=== PATIENT | male | born 1960 | race Caucasian/White ===

== ENCOUNTER 2018-12-01 03:19 | Inpatient (IN) | payer SELFPAY ==
[2018-12-01] MEDS ORDERED: HYDROMORPHONE HCL INJ/PF 2 MG/ML AMPULE IV ONE ×2 (03:48→04:48)
[2018-12-01] MEDS ORDERED: ONDANSETRON HCL INJ/PF 4 MG/2 ML SDV IV ONE (03:49)
[2018-12-01] MEDS ORDERED: NORMAL SALINE 1000 ML 1,000 ML IV ONE ×2 (03:49→04:49)
--- NOTE | 2018-12-01 03:50 | ER Document Report ---
ED GI/ - General Chief Complaint: Abdominal Pain Stated Complaint: ABDOMINAL PAIN Time Seen by Provider: 12/01/18 03:44 Notes: Patient is a 58-year-old male that comes to the emergency department for chief complaint of abdominal pain. Patient states that he started having pain at around 2300 tonight, pain is sharp, he has vomited repeatedly (easily more than 10 times reportedly). He denies hematemesis, he has had some loose stools, nonbloody. He denies fever/chills. He has a history of Crohn's disease, he has had multiple bowel surgeries including partial bowel resection, he also has had an appendectomy and cholecystectomy. He is currently being medicated for Crohn's disease but he cannot recall the name. He denies currently being on steroids. He follows with gastroenterology in [place], he is here visiting his family. He denies medical history otherwise. TRAVEL OUTSIDE OF THE [place] IN LAST 30 DAYS: No - Related Data Allergies/Adverse Reactions: Penicillins Allergy (Severe, Verified 12/01/18 04:28) Seizures Past Medical History - General Information source: Patient - Social History Smoking Status: Never Smoker Drug Abuse: None Lives with: Family Family History: Reviewed & Not Pertinent GI Medical History: Reports: Hx Crohn's Disease Past Surgical History: Reports: Hx Appendectomy, Hx Bowel Surgery, Hx Cholecystectomy - Immunizations Immunizations up to date: Yes Hx Diphtheria, Pertussis, Tetanus Vaccination: Yes Review of Systems - Review of Systems Constitutional: No symptoms reported EENT: No symptoms reported Cardiovascular: No symptoms reported Respiratory: No symptoms reported Gastrointestinal: See HPI Genitourinary: No symptoms reported Male Genitourinary: No symptoms reported Musculoskeletal: No symptoms reported Skin: No symptoms reported Hematologic/Lymphatic: No symptoms reported Neurological/Psychological: No symptoms reported Physical Exam - Vital signs Vitals: Temp Pulse Resp BP Pulse Ox 98.8 F 94 20 139/76 H 94 12/01/18 03:32 12/01/18 03:32 12/01/18 03:32 12/01/18 03:32 12/01/18 03:32 - Notes Notes: GENERAL: Patient curled up on the bed, appears to be in pain, somewhat ill- appearing HEAD: Normocephalic, atraumatic. EYES: Pupils equal, round, and reactive to light. Extraocular movements intact. ENT: Oral mucosa very dry, tongue midline. Oropharynx unremarkable. Airway patent. LUNGS: Clear to auscultation bilaterally, no wheezes, rales, or rhonchi. No respiratory distress. HEART: Regular rate and rhythm. No murmur ABDOMEN: Very tender abdomen in both upper and lower quadrants equally. However abdomen is not rigid, bowel sounds are present. Large amount of scar is around the umbilicus and lower abdomen in addition to a large cholecystectomy scar. GENITOURINARY: Deferred EXTREMITIES: Moves all 4 extremities spontaneously. No edema, normal radial and dorsalis pedis pulses bilaterally. No cyanosis. BACK: no cervical, thoracic, lumbar midline tenderness. No saddle anesthesia, normal distal neurovascular exam. Moves all extremities in full range of motion. NEUROLOGICAL: Alert and oriented x3. Normal speech. Cranial nerves II through XII grossly intact. SKIN: Slightly pale in appearance. Course - Re-evaluation Re-evalutation: On initial evaluation patient is somewhat ill-appearing and appears to be in pain. His abdomen is diffusely tender but not rigid. Vital signs are still unremarkable. No fever. CBC shows leukocytosis at 19.8, hemoglobin of 18 (suspect from dehydration), jovani vation of neutrophils but no bandemia. Lactic acid is not elevated. Chemistry nonspecific. Urinalysis unremarkable. CAT scan performed because of patient's large surgical history, history of Crohn's disease, leukocytosis. This was performed to rule out perforation, abscess, or other acute process. CT showing colitis. Clinical picture is most consistent with Crohn's flare. Given Solu-Medrol. Because patient remains very uncomfortable on reevaluation, he has colitis on imaging, he has leukocytosis, and he does not have local follow-up I did discuss with patient, he is uncomfortable going home and states he feels that he will continue to worsen and vomit. Discussed with Dr. Kramer, added Cipro and Flagyl coverage for colitis. Will discuss with hospitalist. 12/01/18 07:[address] Britt, patient accepted to medical floor full admission. - Vital Signs Vital signs: Temp Pulse Resp BP Pulse Ox 98 F 90 20 137/87 H 96 12/01/18 06:20 12/01/18 06:20 12/01/18 06:20 12/01/18 06:20 12/01/18 06:20 - Laboratory Result Diagrams: 12/01/18 04:00 12/01/18 04:00 Laboratory results interpreted by me: 12/01/18 12/01/18 04:00 04:00 WBC 19.8 H RBC 6.32 H Hgb 18.0 H Hct 53.1 H RDW 14.2 H Lymph % (Auto) 7.7 L Absolute Neuts (auto) 16.6 H Seg Neutrophils % 83.9 H BUN 29 H Glucose 145 H Discharge - Discharge Clinical Impression: Dehydration Vomiting Qualifiers: Vomiting type: unspecified Vomiting Intractability: unspecified Nausea presence : with nausea Qualified Code(s): R11.2 - Nausea with vomiting, unspecified Leukocytosis Qualifiers: Leukocytosis type: unspecified Qualified Code(s): D72.829 - Elevated white blood cell count, unspecified Crohn's colitis Qualifiers: Digestive disease complication type: without complication Qualified Code(s): K50.10 - Crohn's disease of large intestine without complications Condition: Stable Disposition: ADMITTED INPATIENT Admitting Provider: Lorenza (Hospitalist) Unit Admitted: Medical Floor
[2018-12-01 04:22] LABS: ABSOLUTE BASOPHILS # (AUTO) 0.1 10^3/uL (0.0-0.2); ABSOLUTE EOSINOPHILS # (AUTO) 0.3 10^3/uL (0.0-0.6); ABSOLUTE LYMPHOCYTES (AUTO) 1.5 10^3/uL (0.5-4.7); ABSOLUTE MONOCYTES (AUTO) 1.3 10^3/uL (0.1-1.4); ABSOLUTE NEUT (AUTO) 16.6 10^3/uL (1.7-8.2); BASOPHILS % (AUTO) 0.6 % (0-2); EOSINOPHILS % (AUTO) 1.4 % (0-6); HEMATOCRIT 53.1 % (37.9-51.0); LYMPHOCYTES % (AUTO) 7.7 % (13-45); MEAN CORPUSCULAR HEMOGLOBIN 28.5 pg (27.0-33.4); MEAN CORPUSCULAR VOLUME 84 fl (80-97); MONOCYTES % (AUTO) 6.4 % (3-13); PLATELET COUNT 234 10^3/uL (150-450); RED BLOOD COUNT 6.32 10^6/uL (4.35-5.55); RED CELL DISTRIBUTION WIDTH 14.2 % (11.5-14.0); SEGMENTED NEUTROPHILS % (AUTO) 83.9 % (42-78); TOTAL CELLS COUNTED % (AUTO) 100 %; WHITE BLOOD COUNT 19.8 10^3/uL (4.0-10.5)
[2018-12-01 04:38] LABS: ALKALINE PHOSPHATASE 89 U/L (38-126); ANION GAP 13 (5-19); ASPARTATE AMINO TRANSFERASE 22 U/L (17-59); BILIRUBIN,DIRECT 0.3 mg/dL (0.0-0.4); BILIRUBIN,TOTAL 1.3 mg/dL (0.2-1.3); BLOOD UREA NITROGEN 29 mg/dL (7-20); CARBON DIOXIDE 25 mmol/L (22-30); CHLORIDE 101 mmol/L (98-107); GLUCOSE 145 mg/dL (75-110); POTASSIUM 4.2 mmol/L (3.6-5.0); TOTAL PROTEIN 7.8 g/dL (6.3-8.2)
[2018-12-01 05:53] LABS: APPEARANCE,URINE SLIGHTLY-CLOUDY; BILIRUBIN,URINE NEGATIVE (NEGATIVE); COLOR,URINE YELLOW; GLUCOSE, URINE NEGATIVE (NEGATIVE); KETONES,URINE NEGATIVE (NEGATIVE); LEUKOCYTE ESTERASE,URINE NEGATIVE (NEGATIVE); NITRITE,URINE NEGATIVE (NEGATIVE); PROTEIN,URINE NEGATIVE (NEGATIVE); URINE SPECIFIC GRAVITY 1.026; UROBILINOGEN,URINE NEGATIVE mg/dL (<2.0)
--- NOTE | 2018-12-01 06:06 | RADIOLOGY REPORT (SQ) ---
CLINICAL HISTORY: sharp abd pain, vomiting, hx crohns COMPARISON: None. TECHNIQUE: CT ABDOMEN PELVIS WITH IV CONTRAST on 12/01/2018 4:46 AM CDT This exam was performed according to our departmental dose-optimization program, which includes automated exposure control, adjustment of the mA and/or kV according to patient size and/or use of iterative reconstruction technique. FINDINGS: There is a left basilar pulmonary nodule measuring 1.3 cm. Abdomen: The liver is normal in appearance. There is no biliary dilatation. Cholecystectomy was performed. The pancreas and spleen are normal in appearance. The adrenal glands and kidneys are unremarkable. Abdominal aorta is normal in course and caliber without aneurysm. There is no free air. There is no retroperitoneal adenopathy. Pelvis: There is fluid throughout the colon. Urinary bladder is unremarkable. There is no free fluid. Appendix is not seen. Skeleton: There are no acute osseous findings. No suspicious bony lesions. IMPRESSION: Fluid-filled colon secondary to underlying diarrheal process/colitis.
[2018-12-01] MEDS ORDERED: METHYLPREDNISOLONE INJ 125 MG/2 ML SDV IV ONE (06:17)
[2018-12-01] MEDS ORDERED: DIPHENHYDRAMINE HCL 50 MG/ML VIAL IV ONE (06:32)
[2018-12-01] MEDS ORDERED: METOCLOPRAMIDE HCL INJ/PF 10 MG/2 ML SDV IV ONE (06:32)
[2018-12-01] MEDS ORDERED: METRONIDAZOLE 500 MG/NS RTU 500 MG/100 ML RTUPB IV ONE (06:41)
[2018-12-01] MEDS ORDERED: CIPROFLOXACIN 400 MG/D5W RTU 400 MG/200 ML RTUPB IV ONE (06:41)
[2018-12-01] MEDS ORDERED: PROMETHAZINE HCL INJ 25 MG/1 ML VIAL IV PRN (08:42)
[2018-12-01] MEDS ORDERED: DEXTROSE 50%-WATER 25 GM/50 ML DISP.SYRIN IV PRN ×2 (08:42)
[2018-12-01] MEDS ORDERED: GLUCAGON,HUMAN RECOMB 1 MG INJ SUBCUT PRN (08:42)
[2018-12-01] MEDS ORDERED: DEXTROSE 40% GEL 15 GM TUBE PO PRN ×2 (08:42)
[2018-12-01] MEDS ORDERED: ACETAMINOPHEN 325 MG TABLET PO PRN (08:42)
--- NOTE | 2018-12-01 08:58 | PDOC H&P ---
History of Present Illness Admission Date/PCP: 12/01/18 07:49 Patient complains of: abd pain for few days associated with nausea and vomitings. History of Present Illness: YARI AZUL is a 58 year old male with h/o crohns disease came to ER with c/o nausea and vomitings associated with severe abd pain and watery diarrhea. denies any fever but c/o chills. not on prednisone for crohns disease.. work up in Er snows wbc 19.[address] shows colitis. medical consult was called for admission. Past Medical History Cardiac Medical History: Reports: None Pulmonary Medical History: Reports: None EENT Medical History: Reports: None Neurological Medical History: Reports: None Endocrine Medical History: Reports: None GI Medical History: Reports: Crohn's Disease Psychiatric Medical History: Reports: None Hematology: Reports: None Past Surgical History Past Surgical History: Reports: Appendectomy, Cholecystectomy Social History Information Source: Patient Lives with: Family Smoking Status: Current Every Day Smoker Frequency of Alcohol Use: Occasional Hx Recreational Drug Use: No Hx Prescription Drug Abuse: No - Advance Directive Resuscitation Status: Full Code Family History Family History: Reviewed & Not Pertinent Parental Family History Reviewed: Yes - porphyria. Children Family History Reviewed: Yes Sibling(s) Family History Reviewed.: Yes Medication/Allergy Allergies/Adverse Reactions: Penicillins Allergy (Severe, Verified 12/01/18 04:28) Seizures Review of Systems Constitutional: PRESENT: chills, fatigue, weakness. ABSENT: fever(s), headache(s) Eyes: ABSENT: visual disturbances Ears: ABSENT: hearing changes Nose, Mouth, and Throat: ABSENT: sore throat Cardiovascular: ABSENT: dyspnea on exertion Respiratory: ABSENT: cough, dyspnea, hemoptysis Gastrointestinal: PRESENT: abdominal pain, diarrhea, nausea, vomiting Musculoskeletal: ABSENT: joint swelling Neurological: ABSENT: abnormal gait, abnormal speech, confusion, dizziness, focal weakness, syncope Psychiatric: ABSENT: anxiety, depression, homidical ideation, suicidal ideation Physical Exam Vital Signs: Temp Pulse Resp BP Pulse Ox 98 F 90 20 137/87 H 96 12/01/18 06:20 12/01/18 06:20 12/01/18 06:20 12/01/18 06:20 12/01/18 06:20 Intake & Output 11/30/18 12/01/18 12/02/18 06:59 06:59 06:59 Intake Total 1999 200 Balance 1999 200 Weight 82 kg General appearance: PRESENT: no acute distress, severe distress Head exam: PRESENT: atraumatic Eye exam: PRESENT: PERRLA Mouth exam: PRESENT: dry mucosa Teeth exam: PRESENT: poor dentation Neck exam: PRESENT: carotid bruit Respiratory exam: PRESENT: clear to auscultation raeann. ABSENT: rales, rhonchi, wheezes Cardiovascular exam: PRESENT: RRR. ABSENT: diastolic murmur, rubs, systolic murmur GI/Abdominal exam: PRESENT: guarding, hypoactive bowel sounds, normal bowel sounds, soft, tenderness. ABSENT: distended, mass, organolmegaly, rebound Rectal exam: PRESENT: deferred Extremities exam: PRESENT: full ROM. ABSENT: calf tenderness, clubbing, pedal edema Neurological exam: PRESENT: alert, awake, oriented to person, oriented to place, oriented to time, oriented to situation, CN II-XII grossly intact. ABSENT: motor sensory deficit Psychiatric exam: PRESENT: appropriate affect, normal mood. ABSENT: homicidal ideation, suicidal ideation Results Laboratory Results: 12/01/18 04:00 12/01/18 04:00 12/01/18 12/01/18 12/01/18 04:00 04:00 04:04 WBC 19.8 H RBC 6.32 H Hgb 18.0 H Hct 53.1 H MCV 84 MCH 28.5 MCHC 34.0 RDW 14.2 H Plt Count 234 Seg Neutrophils % 83.9 H Sodium 139.4 Potassium 4.2 Chloride 101 Carbon Dioxide 25 Anion Gap 13 BUN 29 H Creatinine 0.92 Est GFR ( Amer) > 60 Glucose 145 H Lactic Acid 1.4 Calcium 10.0 Total Bilirubin 1.3 AST 22 Alkaline Phosphatase 89 Total Protein 7.8 Albumin 5.0 Lipase 111.2 Urine Color Urine Appearance Urine pH Ur Specific [place] Urine Protein Urine Glucose (UA) Urine Ketones Urine Blood Urine Nitrite Ur Leukocyte Esterase Urine WBC (Auto) Urine RBC (Auto) 12/01/18 05:12 WBC RBC Hgb Hct MCV MCH MCHC RDW Plt Count Seg Neutrophils % Sodium Potassium Chloride Carbon Dioxide Anion Gap BUN Creatinine Est GFR ( Amer) Glucose Lactic Acid Calcium Total Bilirubin AST Alkaline Phosphatase Total Protein Albumin Lipase Urine Color YELLOW Urine Appearance SLIGHTLY-CLOUDY Urine pH 5.0 Ur Specific [place] 1.026 Urine Protein NEGATIVE Urine Glucose (UA) NEGATIVE Urine Ketones NEGATIVE Urine Blood NEGATIVE Urine Nitrite NEGATIVE Ur Leukocyte Esterase NEGATIVE Urine WBC (Auto) 1 Urine RBC (Auto) 1 Impressions: Abdomen/Pelvis CT 12/01/18 04:46 IMPRESSION: Fluid-filled colon secondary to underlying diarrheal process/colitis. Assessment and Plan - Diagnosis (1) Crohn's colitis Qualifiers: Digestive disease complication type: without complication Qualified Code(s): K50.10 - Crohn's disease of large intestine without complications Is this a current diagnosis for this admission?: Yes Plan: 12/[id number]-uvao-old male is going to be admitted to medical floor for colitis. CT abdomen pelvis indicates diarrheal process/colitis. WBC count is 19,800. Blood cultures urine cultures are requested started on IV Cipro floxacillin and IV Flagyl. He was placed on IV fluids normal saline 125 cc/h, IV morphine 2 mg every 4 PRN for pain, IV Protonix 40 mg p.o. twice daily, Zofran 4 mg IV every 4 as needed for nausea and Phenergan 12.5 mg IV every 4 PRN for nausea. DVT prophylaxis was initiated. GI consult was requested try to call Dr. Luna's office unable to get any one on the phone, we called his cell phone and left a message. Stool for WBC and stool culture will be sent. (2) Leukocytosis Qualifiers: Leukocytosis type: unspecified Qualified Code(s): D72.829 - Elevated white blood cell count, unspecified Is this a current diagnosis for this admission?: Yes Plan: 12/01/2018-patient came in with elevated WBC count 19,800 most likely secondary to inflammatory process involving the colon. (3) Vomiting Qualifiers: Vomiting type: unspecified Vomiting Intractability: unspecified Nausea presence: with nausea Qualified Code(s): R11.2 - Nausea with vomiting, unspecified Is this a current diagnosis for this admission?: Yes Plan: 12/01/2018-patient came with complaints of nausea and vomitings most likely secondary to Crohn's exacerbation, colitis. Patient was started on IV Zofran as needed and also on IV Phenergan as needed. - Time Time Spent with patient: 15-24 minutes Smoking Cessation Education: over 10 minutes Medications reviewed and adjusted accordingly: Yes Anticipated discharge: Home
[2018-12-01] MEDS: METHYLPREDNISOLONE INJ 40 MG/1 ML SDV IV SCH ×2 (09:21→22:17)
[2018-12-01 09:28] LABS: CREATINE KINASE MB 1.41 ng/mL (<4.55)
[2018-12-01] MEDS: ONDANSETRON HCL INJ/PF 4 MG/2 ML SDV IV PRN (09:28)
[2018-12-01] MEDS: MORPHINE SULFATE 10 MG/ML INJ IV PRN ×4 (09:28→22:17)
[2018-12-01] MEDS: NORMAL SALINE 1000 ML 1,000 ML IV PRN ×2 (09:30→16:53)
[2018-12-01 09:33] LABS: TROPONIN I < 0.012 ng/mL
[2018-12-01] MEDS: ENOXAPARIN SODIUM INJ 40 MG/0.4 ML DISP.SYRIN SUBCUT SCH (10:28)
[2018-12-01] MEDS: PANTOPRAZOLE SODIUM 40 MG VIAL IV SCH ×2 (10:28→22:17)
[2018-12-01 10:47] LABS: URINE AMPHETAMINES SCREEN NEGATIVE; URINE BARBITURATES SCREEN NEGATIVE; URINE BENZODIAZEPINES SCREEN NEGATIVE; URINE COCAINE SCREEN NEGATIVE; URINE MARIJUANA (THC) SCREEN NEGATIVE; URINE METHADONE SCREEN NEGATIVE; URINE PHENCYCLIDINE SCREEN NEGATIVE
[2018-12-01 11:02] LABS: CREATINE KINASE MB 1.15 ng/mL (<4.55)
[2018-12-01 11:08] LABS: TROPONIN I < 0.012 ng/mL
[2018-12-01] MEDS: METRONIDAZOLE 500 MG/NS RTU 500 MG/100 ML RTUPB IV SCH ×2 (12:19→17:10)
[2018-12-01] MEDS: CIPROFLOXACIN 400 MG/D5W RTU 400 MG/200 ML RTUPB IV SCH (17:10)
[2018-12-01 17:23] LABS: CREATINE KINASE MB 1.15 ng/mL (<4.55)
[2018-12-01 17:26] LABS: TROPONIN I < 0.012 ng/mL
[2018-12-02] MEDS: METRONIDAZOLE 500 MG/NS RTU 500 MG/100 ML RTUPB IV SCH ×5 (00:08→23:22)
[2018-12-02] MEDS: MORPHINE SULFATE 10 MG/ML INJ IV PRN ×5 (02:24→19:49)
[2018-12-02] MEDS: CIPROFLOXACIN 400 MG/D5W RTU 400 MG/200 ML RTUPB IV SCH ×2 (05:32→17:57)
[2018-12-02 06:27] LABS: HEMATOCRIT 41.5 % (37.9-51.0); MEAN CORPUSCULAR HEMOGLOBIN 28.5 pg (27.0-33.4); MEAN CORPUSCULAR HGB CONC 34.2 g/dL (32.0-36.0); MEAN CORPUSCULAR VOLUME 83 fl (80-97); PLATELET COUNT 173 10^3/uL (150-450); RED BLOOD COUNT 4.98 10^6/uL (4.35-5.55); RED CELL DISTRIBUTION WIDTH 13.9 % (11.5-14.0); WHITE BLOOD COUNT 13.5 10^3/uL (4.0-10.5)
[2018-12-02 06:28] LABS: HEMOGLOBIN 14.2 g/dL (13.5-17.0)
[2018-12-02 06:45] LABS: ALBUMIN 3.6 g/dL (3.5-5.0); ALKALINE PHOSPHATASE 53 U/L (38-126); ANION GAP 9 (5-19); ASPARTATE AMINO TRANSFERASE 16 U/L (17-59); BILIRUBIN,DIRECT 0.3 mg/dL (0.0-0.4); BILIRUBIN,TOTAL 0.9 mg/dL (0.2-1.3); BLOOD UREA NITROGEN 19 mg/dL (7-20); CALCIUM 8.6 mg/dL (8.4-10.2); CARBON DIOXIDE 24 mmol/L (22-30); CHLORIDE 104 mmol/L (98-107); GLUCOSE 148 mg/dL (75-110); POTASSIUM 4.3 mmol/L (3.6-5.0); TOTAL PROTEIN 5.9 g/dL (6.3-8.2); TRIGLYCERIDES 72 mg/dL (<150)
[2018-12-02 06:55] LABS: DIRECT LDL 81 mg/dL (<100)
[2018-12-02] MEDS: METHYLPREDNISOLONE INJ 40 MG/1 ML SDV IV SCH ×2 (09:27→21:31)
[2018-12-02] MEDS: PANTOPRAZOLE SODIUM 40 MG VIAL IV SCH ×2 (09:27→21:31)
[2018-12-02] MEDS: ENOXAPARIN SODIUM INJ 40 MG/0.4 ML DISP.SYRIN SUBCUT SCH (09:27)
[2018-12-02] MEDS ORDERED: POLYETHYLENE GLYCOL 3350 POWDER 17 GM/1 PACKET PO ONE (14:00)
--- NOTE | 2018-12-02 14:00 | PDOC CONSULTATION ---
Consultation Consult Date: 12/02/18 Provider Consulted: LISA OCHOA Consult reason:: colitis History of Present Illness Admission Date/PCP: 12/01/18 07:49 History of Present Illness: YARI AZUL is a 58 year old male I am asked to see this patient has recently moved to the area diagnosed with Crohn's in the past and is on biologic therapy , stelera however has not been taking for the past 3 weeks was feeling well until saturday then had nausea, vomiting and diarrhea no one else in family sick patient has had multiple surgeries in the past CT scan shows inflammation admitted , feeling better and no longer having nausea or vomiting still has abdominal distension no further diarrhea patient could either have a limited gastroenteritis vs flare of Crohn's does have elevated WBC, will schedule colonoscopy with Propofol sedation Past Medical History Cardiac Medical History: Reports: None Pulmonary Medical History: Reports: None EENT Medical History: Reports: None Neurological Medical History: Reports: None Endocrine Medical History: Reports: None GI Medical History: Reports: Crohn's Disease Psychiatric Medical History: Reports: None Hematology: Reports: None Past Surgical History Past Surgical History: Reports: Appendectomy, Cholecystectomy Social History Lives with: Family Smoking Status: Current Every Day Smoker Cigars Per Day: 3 Frequency of Alcohol Use: Occasional Hx Recreational Drug Use: No Drugs: None Hx Prescription Drug Abuse: No - Advance Directive Resuscitation Status: Full Code Family History Family History: Reviewed & Not Pertinent Parental Family History Reviewed: Yes Children Family History Reviewed: Unknown Sibling(s) Family History Reviewed.: Unknown Medication/Allergy Home Medications: No Home Medications 12/01/18 Allergies/Adverse Reactions: Penicillins Allergy (Severe, Verified 12/01/18 04:28) Seizures Review of Systems Constitutional: ABSENT: fever(s), headache(s), weakness Eyes: ABSENT: visual disturbances Ears: ABSENT: hearing changes Nose, Mouth, and Throat: ABSENT: sore throat Cardiovascular: ABSENT: edema, orthropnea Respiratory: ABSENT: dyspnea, hemoptysis Gastrointestinal: PRESENT: diarrhea, nausea, vomiting Genitourinary: ABSENT: dysuria, hematuria Integumentary: ABSENT: pruritus Neurological: ABSENT: syncope, tingling, tremor(s), vertigo Endocrine: ABSENT: polydipsia, polyphagia, polyuria Hematologic/Lymphatic: ABSENT: easy bruising Physical Exam Vital Signs: Temp Pulse Resp BP Pulse Ox 97.4 F 69 16 109/58 L 94 08/27/19 11:34 12/02/18 11:34 12/02/18 11:34 12/02/18 11:34 12/02/18 11:34 Intake & Output 12/01/18 12/02/18 12/03/18 06:59 06:59 06:59 Intake Total 1999 2403 480 Balance 1999 2403 480 Weight 82 kg 81 kg General appearance: PRESENT: no acute distress, well-developed, well-nourished Head exam: PRESENT: atraumatic, normocephalic Eye exam: PRESENT: EOMI, PERRLA. ABSENT: nystagmus Mouth exam: PRESENT: moist Throat exam: ABSENT: tonsillar exudate Neck exam: ABSENT: tenderness, thyromegaly Respiratory exam: PRESENT: unlabored. ABSENT: symmetrical, tachypnea, wheezes Cardiovascular exam: PRESENT: RRR, +S1, +S2 GI/Abdominal exam: PRESENT: hypoactive bowel sounds, soft. ABSENT: rebound, rigid, tenderness Extremities exam: ABSENT: joint swelling Musculoskeletal exam: PRESENT: full ROM Neurological exam: PRESENT: oriented to time, oriented to situation, reflexes normal, CN II-XII grossly intact Psychiatric exam: PRESENT: appropriate affect Focused psych exam: ABSENT: restlessness Skin exam: PRESENT: normal color. ABSENT: mottled, pallor, urticaria, vesicles Results Laboratory Results: 12/02/18 05:16 12/02/18 05:16 12/02/18 12/02/18 12/02/18 05:16 05:16 05:16 WBC 13.5 H RBC 4.98 Hgb 14.2 D Hct 41.5 MCV 83 MCH 28.5 MCHC 34.2 RDW 13.9 Plt Count 173 Sodium 137.1 Potassium 4.3 Chloride 104 Carbon Dioxide 24 Anion Gap 9 BUN 19 Creatinine 0.74 Est GFR ( Amer) > 60 Glucose 148 H Calcium 8.6 Magnesium 1.9 Total Bilirubin 0.9 AST 16 L Alkaline Phosphatase 53 Total Protein 5.9 L Albumin 3.6 Triglycerides 72 Cholesterol 129.70 LDL Cholesterol Direct 81 VLDL Cholesterol 14.0 HDL Cholesterol 46 Lipase 52.9 TSH 0.46 L 12/01/18 12/01/18 12/01/18 04:00 04:00 10:15 Creatine Kinase 83 69 CK-MB (CK-2) 1.41 Troponin I < 0.012 NT-Pro-B Natriuret Pep 12/01/18 12/01/18 12/01/18 10:15 16:37 16:37 Creatine Kinase 61 CK-MB (CK-2) 1.15 1.15 Troponin I < 0.012 < 0.012 NT-Pro-B Natriuret Pep 12/02/18 05:16 Creatine Kinase CK-MB (CK-2) Troponin I NT-Pro-B Natriuret Pep 281 Impressions: Abdomen/Pelvis CT 12/01/18 04:46 IMPRESSION: Fluid-filled colon secondary to underlying diarrheal process/colitis. Assessment & Plan - Diagnosis (1) Crohn's colitis Qualifiers: Digestive disease complication type: without complication Qualified Code(s): K50.10 - Crohn's disease of large intestine without complications Is this a current diagnosis for this admission?: Yes Plan: has been stable on immunologic therapy recently not been taking acute onset of nausea, vomiting and diarrhea which has resolved CT scan shows non specific colitis ? gastroenteritis vs flare of Crohn's will schedule colonoscopy with Propofol sedation Risks, benefits and alternatives are discussed with the patient in detail further recommendations to follow - Time Time Spent: 50 to 70 Minutes
--- NOTE | 2018-12-02 18:14 | PDOC PROGRESS REPORT ---
Subjective Progress Note for:: 12/02/18 Subjective:: This is a 58 year old male with Crohns disease who presented with vomiting, abdominal pain and diarrhea. His CT showed nonspecific colitis. He was started on IV antibiotics and steroids. No acute event overnight. Patient says that he still having abdominal pain this morning but it is slightly improved from yesterday. He says that his diarrhea has significantly improved and has not had a BM yet this morning. He is still having poor appetite and said he was slightly nauseated but no vomiting. He has only been getting ice chips. Reason For Visit: COLITIS Physical Exam Vital Signs: Temp Pulse Resp BP Pulse Ox 97.4 F 69 16 109/58 L 94 12/02/18 11:34 12/02/18 11:34 12/02/18 11:34 12/02/18 11:34 12/02/18 11:34 Intake & Output 12/01/18 12/02/18 12/03/18 06:59 06:59 06:59 Intake Total 1999 2403 480 Balance 1999 2403 480 Weight 180 lb 12.465 oz 178 lb 9.191 oz General appearance: PRESENT: no acute distress, well-developed, well-nourished Head exam: PRESENT: atraumatic, normocephalic Eye exam: PRESENT: conjunctiva pink, EOMI, PERRLA. ABSENT: scleral icterus Ear exam: PRESENT: normal external ear exam Mouth exam: PRESENT: moist, tongue midline Neck exam: ABSENT: carotid bruit, JVD, lymphadenopathy, thyromegaly Respiratory exam: PRESENT: clear to auscultation raeann. ABSENT: rales, rhonchi, wheezes Cardiovascular exam: PRESENT: RRR. ABSENT: diastolic murmur, rubs, systolic murmur Pulses: PRESENT: normal dorsalis pedis pul GI/Abdominal exam: PRESENT: normal bowel sounds, soft. ABSENT: distended, guarding, mass, organolmegaly, rebound, tenderness Rectal exam: PRESENT: deferred Neurological exam: PRESENT: alert, awake, oriented to person, oriented to place, oriented to time, oriented to situation, CN II-XII grossly intact. ABSENT: motor sensory deficit Results Laboratory Results: 12/02/18 05:16 12/02/18 05:16 12/02/18 12/02/18 12/02/18 05:16 05:16 05:16 WBC 13.5 H RBC 4.98 Hgb 14.2 D Hct 41.5 MCV 83 MCH 28.5 MCHC 34.2 RDW 13.9 Plt Count 173 Sodium 137.1 Potassium 4.3 Chloride 104 Carbon Dioxide 24 Anion Gap 9 BUN 19 Creatinine 0.74 Est GFR ( Amer) > 60 Glucose 148 H Calcium 8.6 Magnesium 1.9 Total Bilirubin 0.9 AST 16 L Alkaline Phosphatase 53 Total Protein 5.9 L Albumin 3.6 Triglycerides 72 Cholesterol 129.70 LDL Cholesterol Direct 81 VLDL Cholesterol 14.0 HDL Cholesterol 46 Lipase 52.9 TSH 0.46 L 12/01/18 12/01/18 12/01/18 04:00 04:00 10:15 Creatine Kinase 83 69 CK-MB (CK-2) 1.41 Troponin I < 0.012 NT-Pro-B Natriuret Pep 12/01/18 12/01/18 12/01/18 10:15 16:37 16:37 Creatine Kinase 61 CK-MB (CK-2) 1.15 1.15 Troponin I < 0.012 < 0.012 NT-Pro-B Natriuret Pep 12/02/18 05:16 Creatine Kinase CK-MB (CK-2) Troponin I NT-Pro-B Natriuret Pep 281 Impressions: Abdomen/Pelvis CT 12/01/18 04:46 IMPRESSION: Fluid-filled colon secondary to underlying diarrheal process/colitis. Assessment and Plan - Diagnosis (1) Crohn's colitis Qualifiers: Digestive disease complication type: without complication Qualified Code(s): K50.10 - Crohn's disease of large intestine without complications Is this a current diagnosis for this admission?: Yes Plan: Continue IV Flagyl and Cipro. Await further recommendations from GI. (2) Dehydration Is this a current diagnosis for this admission?: Yes Plan: Continue IV fluids. - Time Time Spent with patient: 15-24 minutes
[2018-12-02 18:46] LABS: FREE T3 2.58 pg/mL (2.77-5.27); FREE T4 (FREE THYROXINE) 0.94 ng/dL (0.78-2.19)
[2018-12-02] MEDS: ONDANSETRON HCL INJ/PF 4 MG/2 ML SDV IV PRN (23:22)
[2018-12-03] MEDS: MORPHINE SULFATE 10 MG/ML INJ IV PRN ×6 (00:55→22:52)
[2018-12-03] MEDS: METRONIDAZOLE 500 MG/NS RTU 500 MG/100 ML RTUPB IV SCH ×4 (05:19→23:00)
[2018-12-03] MEDS: NORMAL SALINE 1000 ML 1,000 ML IV PRN ×3 (05:19→22:57)
[2018-12-03] MEDS: CIPROFLOXACIN 400 MG/D5W RTU 400 MG/200 ML RTUPB IV SCH ×2 (06:18→17:48)
[2018-12-03] MEDS ORDERED: PROPOFOL INJ 200 MG/20 ML VIAL IV ONE (09:11)
[2018-12-03] MEDS: METHYLPREDNISOLONE INJ 40 MG/1 ML SDV IV SCH ×2 (10:21→22:52)
[2018-12-03] MEDS: PANTOPRAZOLE SODIUM 40 MG VIAL IV SCH ×2 (10:21→22:52)
--- NOTE | 2018-12-03 11:54 | Operative Report ---
Operative Report DATE OF SURGERY: 12/03/18 Operative Report: The risks, benefits and alternatives of the procedure including the risk of bleeding, perforation requiring surgery have been explained to the patient in detail and informed consent has been obtained. Patient is placed in a left, lateral decubital position. Timeout was called. Propofol medication is administered. A rectal examination is done which did not reveal any masses, tears or fissures. An Olympus videoscope was introduced into the patient's re ctum. The scope was advanced all the way to the cecum. Cecum was identified by the usual anatomical landmarks of the ileocecal valve as well as the appendiceal office. Photodocumentation is obtained. The scope was then sequentially pulled back via the rest segments of the colon including the ascending colon, hepatic flexure, transverse colon, splenic flexure, descending colon finding to the re ctosigmoid portions of the colon. Retroflexion maneuvers performed. PREOPERATIVE DIAGNOSIS: Apparently abnormal CT scan indicating a colitis. POSTOPERATIVE DIAGNOSIS: Normal evaluation of the large intestine random biopsies are taken to rule out microscopic colitis. Otherwise no mucosal inflammation, erythema is noted throughout the colon. Normal colonoscopy OPERATION: Colonoscopy with biopsy SURGEON: LISA OCHOA ANESTHESIA: LMAC TISSUE REMOVED OR ALTERED: As noted above. COMPLICATIONS: None. ESTIMATED BLOOD LOSS: None. INTRAOPERATIVE FINDINGS: As noted above. PROCEDURE: Patient tolerated the procedure well. No immediate postprocedure complications are noted. Patient is sent back to his room in good condition. Resume regular diet Resume previous activity level Otherwise normal colonoscopy without any evidence of colitis Check sed rate, CRP and possibly consider small bowel series to document if there is small bowel Crohn's. Prior to discharge Follow-up as needed
[2018-12-03] MEDS: ENOXAPARIN SODIUM INJ 40 MG/0.4 ML DISP.SYRIN SUBCUT SCH (12:25)
--- NOTE | 2018-12-03 13:42 | PDOC PROGRESS REPORT ---
Subjective Progress Note for:: 12/03/18 Subjective:: This is a 58 year old male with Crohns disease who presented with vomiting, abdominal pain and diarrhea. His CT showed nonspecific colitis. He was started on IV antibiotics and steroids. 12/02: Patient says that he still having abdominal pain this morning but it is slightly improved from yesterday. He says that his diarrhea has significantly improved and has not had a BM yet this morning. He is still having poor appetite and said he was slightly nauseated but no vomiting. He has only been getting ice chips. 12/03: No acute event overnight. He says he cotninues to have abdominal pain but is slowly and gradually improving and better form yesterday. His diarrhea has resolved. He just got back from colonoscopy. Will try to advance his diet to soft today. Reason For Visit: COLITIS Physical Exam Vital Signs: Temp Pulse Resp BP Pulse Ox 97.5 F 68 19 149/80 H 96 12/03/18 12:30 12/03/18 12:30 12/03/18 12:30 12/03/18 12:30 12/03/18 12:30 Intake & Output 12/02/18 12/03/18 12/04/18 06:59 06:59 06:59 Intake Total 3403 3510 200 Balance 3403 3510 200 Weight 178 lb 9.191 oz 184 lb 8.43 oz General appearance: PRESENT: no acute distress, well-developed, well-nourished Head exam: PRESENT: atraumatic, normocephalic Eye exam: PRESENT: conjunctiva pink, EOMI, PERRLA. ABSENT: scleral icterus Ear exam: PRESENT: normal external ear exam Mouth exam: PRESENT: moist, tongue midline Neck exam: ABSENT: carotid bruit, JVD, lymphadenopathy, thyromegaly Respiratory exam: PRESENT: clear to auscultation raeann. ABSENT: rales, rhonchi, wheezes Cardiovascular exam: PRESENT: RRR. ABSENT: diastolic murmur, rubs, systolic murmur Pulses: PRESENT: normal dorsalis pedis pul GI/Abdominal exam: PRESENT: normal bowel sounds, soft. ABSENT: distended, guarding, mass, organolmegaly, rebound, tenderness Rectal exam: PRESENT: deferred Extremities exam: PRESENT: full ROM. ABSENT: calf tenderness, clubbing, pedal edema Neurological exam: PRESENT: alert, awake, oriented to person, oriented to place, oriented to time, oriented to situation, CN II-XII grossly intact. ABSENT: motor sensory deficit Results Laboratory Results: 12/02/18 05:16 12/02/18 05:16 12/02/18 05:16 Free T4 0.94 Free T3 pg/mL 2.58 L 12/01/18 10:20 Clean Catch Midstream Urine Culture - Final NO GROWTH 2 DAYS 12/01/18 12/01/18 12/01/18 04:00 04:00 10:15 Creatine Kinase 83 69 CK-MB (CK-2) 1.41 Troponin I < 0.012 NT-Pro-B Natriuret Pep 12/01/18 12/01/18 12/01/18 10:15 16:37 16:37 Creatine Kinase 61 CK-MB (CK-2) 1.15 1.15 Troponin I < 0.012 < 0.012 NT-Pro-B Natriuret Pep 12/02/18 05:16 Creatine Kinase CK-MB (CK-2) Troponin I NT-Pro-B Natriuret Pep 281 Impressions: Abdomen/Pelvis CT 12/01/18 04:46 IMPRESSION: Fluid-filled colon secondary to underlying diarrheal process/colitis. Assessment and Plan - Diagnosis (1) Crohn's colitis Qualifiers: Digestive disease complication type: without complication Qualified Code (s): K50.10 - Crohn's disease of large intestine without complications Is this a current diagnosis for this admission?: Yes Plan: Continue IV Flagyl and Cipro. S/P colonoscopy this morning which was unremarkable. Will advance diet to soft. (2) Dehydration Is this a current diagnosis for this admission?: Yes Plan: Continue IV fluids. - Time Time Spent with patient: 15-24 minutes
[2018-12-04] MEDS: MORPHINE SULFATE 10 MG/ML INJ IV PRN ×2 (04:02→08:37)
[2018-12-04] MEDS: METRONIDAZOLE 500 MG/NS RTU 500 MG/100 ML RTUPB IV SCH ×4 (05:03→23:19)
[2018-12-04] MEDS: ONDANSETRON HCL INJ/PF 4 MG/2 ML SDV IV PRN ×2 (06:12→19:58)
[2018-12-04] MEDS: CIPROFLOXACIN 400 MG/D5W RTU 400 MG/200 ML RTUPB IV SCH ×2 (06:13→17:07)
[2018-12-04] MEDS: ENOXAPARIN SODIUM INJ 40 MG/0.4 ML DISP.SYRIN SUBCUT SCH (09:47)
[2018-12-04] MEDS: PANTOPRAZOLE SODIUM 40 MG VIAL IV SCH ×2 (09:48→23:17)
[2018-12-04] MEDS: METHYLPREDNISOLONE INJ 40 MG/1 ML SDV IV SCH ×2 (09:48→23:17)
[2018-12-04] MEDS: NORMAL SALINE 1000 ML 1,000 ML IV PRN ×2 (11:14→23:19)
[2018-12-04] MEDS: HYDROCODONE/ACETAMINOPHEN 5-325 MG TABLET PO PRN ×2 (13:53→19:58)
--- NOTE | 2018-12-04 14:50 | PDOC PROGRESS REPORT ---
Subjective Progress Note for:: 12/04/18 Subjective:: This is a 58 year old male with Crohns disease who presented with vomiting, abdominal pain and diarrhea. His CT showed nonspecific colitis. He was started on IV antibiotics and steroids. 12/02: Patient says that he still having abdominal pain this morning but it is slightly improved from yesterday. He says that his diarrhea has significantly improved and has not had a BM yet this morning. He is still having poor appetite and said he was slightly nauseated but no vomiting. He has only been getting ice chips. 12/03: He says he continues to have abdominal pain but is slowly and gradually improving and better form yesterday. His diarrhea has resolved. He just got back from colonoscopy. Will try to advance his diet to soft today. 12/04: No acute event overnight. He says his abdominal pain continues to slowly but gradually improve. He says he has started tolerating the solid diet slowly. Reason For Visit: COLITIS Physical Exam Vital Signs: Temp Pulse Resp BP Pulse Ox 97.5 F 68 15 117/58 L 92 12/04/18 12:00 12/04/18 14:00 12/04/18 12:00 12/04/18 12:00 12/04/18 12:00 Intake & Output 12/03/18 12/04/18 12/05/18 06:59 06:59 06:59 Intake Total 3510 5780 1254 Balance 3510 5780 1254 Weight 184 lb 8.43 oz 186 lb 15.232 oz General appearance: PRESENT: no acute distress, well-developed, well-nourished Head exam: PRESENT: atraumatic, normocephalic Eye exam: PRESENT: conjunctiva pink, EOMI, PERRLA. ABSENT: scleral icterus Ear exam: PRESENT: normal external ear exam Mouth exam: PRESENT: moist, tongue midline Neck exam: ABSENT: carotid bruit, JVD, lymphadenopathy, thyromegaly Respiratory exam: PRESENT: clear to auscultation raeann. ABSENT: rales, rhonchi, wheezes Cardiovascular exam: PRESENT: RRR. ABSENT: diastolic murmur, rubs, systolic murmur Pulses: PRESENT: normal dorsalis pedis pul GI/Abdominal exam: PRESENT: normal bowel sounds, soft. ABSENT: distended, gua rding, mass, organolmegaly, rebound, tenderness Rectal exam: PRESENT: deferred Extremities exam: PRESENT: full ROM. ABSENT: calf tenderness, clubbing, pedal edema Neurological exam: PRESENT: alert, awake, oriented to person, oriented to place, oriented to time, oriented to situation, CN II-XII grossly intact. ABSENT: trent r sensory deficit Results Laboratory Results: 12/02/18 05:16 12/02/18 05:16 12/03/18 14:35 C-Reactive Protein < 5.0 12/01/18 12/01/18 12/01/18 04:00 04:00 10:15 Creatine Kinase 83 69 CK-MB (CK-2) 1.41 Troponin I < 0.012 NT-Pro-B Natriuret Pep 12/01/18 12/01/18 12/01/18 10:15 16:37 16:37 Creatine Kinase 61 CK-MB (CK-2) 1.15 1.15 Troponin I < 0.012 < 0.012 NT-Pro-B Natriuret Pep 12/02/18 05:16 Creatine Kinase CK-MB (CK-2) Troponin I NT-Pro-B Natriuret Pep 281 Impressions: Abdomen/Pelvis CT 12/01/18 04:46 IMPRESSION: Fluid-filled colon secondary to underlying diarrheal process/colitis. Assessment and Plan - Diagnosis (1) Crohn's colitis Qualifiers: Digestive disease complication type: without complication Qualified Code(s): K50.10 - Crohn's disease of large intestine without complications Is this a current diagnosis for this admission?: Yes Plan: Continue IV Flagyl and Cipro. 12/03: S/P colonoscopy this morning which was unremarkable. Will advance diet to soft. 12/04: Improving. (2) Dehydration Is this a current diagnosis for this admission?: Yes Plan: Continue IV fluids. - Time Time Spent with patient: 25-34 minutes
[2018-12-05] MEDS: ONDANSETRON HCL INJ/PF 4 MG/2 ML SDV IV PRN (01:24)
[2018-12-05] MEDS: HYDROCODONE/ACETAMINOPHEN 5-325 MG TABLET PO PRN ×2 (01:24→11:17)
[2018-12-05] MEDS: METRONIDAZOLE 500 MG/NS RTU 500 MG/100 ML RTUPB IV SCH (05:35)
[2018-12-05] MEDS: CIPROFLOXACIN 400 MG/D5W RTU 400 MG/200 ML RTUPB IV SCH (06:46)
[2018-12-05] MEDS ORDERED: PREDNISONE 10 MG TABLET PO SCH (10:00)
[2018-12-05] MEDS ORDERED: CIPROFLOXACIN HCL 500 MG TABLET PO SCH (10:00)
[2018-12-05 10:28] VITALS: BP 150/77
[2018-12-05] MEDS: PANTOPRAZOLE SODIUM 40 MG VIAL IV SCH (11:15)
[2018-12-05] MEDS: ENOXAPARIN SODIUM INJ 40 MG/0.4 ML DISP.SYRIN SUBCUT SCH (11:15)
[2018-12-05 13:24] LABS: ABSOLUTE BASOPHILS # (AUTO) 0.1 10^3/uL (0.0-0.2); ABSOLUTE LYMPHOCYTES (AUTO) 1.4 10^3/uL (0.5-4.7); ABSOLUTE MONOCYTES (AUTO) 0.7 10^3/uL (0.1-1.4); ABSOLUTE NEUT (AUTO) 8.6 10^3/uL (1.7-8.2); BASOPHILS % (AUTO) 0.5 % (0-2); EOSINOPHILS % (AUTO) 0.1 % (0-6); HEMATOCRIT 47.6 % (37.9-51.0); HEMOGLOBIN 16.2 g/dL (13.5-17.0); LYMPHOCYTES % (AUTO) 12.8 % (13-45); MEAN CORPUSCULAR HEMOGLOBIN 28.8 pg (27.0-33.4); MEAN CORPUSCULAR HGB CONC 34.1 g/dL (32.0-36.0); MEAN CORPUSCULAR VOLUME 85 fl (80-97); MONOCYTES % (AUTO) 6.6 % (3-13); PLATELET COUNT 159 10^3/uL (150-450); RED BLOOD COUNT 5.63 10^6/uL (4.35-5.55); TOTAL CELLS COUNTED % (AUTO) 100 %; WHITE BLOOD COUNT 10.8 10^3/uL (4.0-10.5)
[2018-12-05 13:43] LABS: ANION GAP 8 (5-19); BLOOD UREA NITROGEN 17 mg/dL (7-20); CALCIUM 8.6 mg/dL (8.4-10.2); CARBON DIOXIDE 27 mmol/L (22-30); CHLORIDE 102 mmol/L (98-107); GLUCOSE 108 mg/dL (75-110); POTASSIUM 4.1 mmol/L (3.6-5.0)
[2018-12-05] MEDS ORDERED: METRONIDAZOLE 500 MG TABLET PO SCH (14:00)
--- NOTE | 2018-12-05 18:50 | PDOC DISCHARGE SUMMARY ---
General - Admit/Disc Date/PCP Admission Date/Primary Care Provider: 12/01/18 07:49 Discharge Date: 12/05/18 - Discharge Diagnosis (1) Crohn's colitis Is this a current diagnosis for this admission?: Yes (2) Dehydration Is this a current diagnosis for this admission?: Yes - Additional Information Resuscitation Status: Full Code Discharge Diet: As Tolerated, Regular Discharge Activity: Activity As Tolerated Prescriptions: Ciprofloxacin HCl [Cipro 500 mg Tablet] 500 mg PO Q12 #8 tablet Prednisone [Deltasone 10 mg Tablet] 10 mg PO BID 4 Days #8 tablet Metronidazole [Flagyl 500 mg Tablet] 500 mg PO Q8 #9 tablet Home Medications: Ciprofloxacin HCl [Cipro 500 mg Tablet] 500 mg PO Q12 #8 tablet 12/05/18 Metronidazole [Flagyl 500 mg Tablet] 500 mg PO Q8 #9 tablet 12/05/18 Prednisone [Deltasone 10 mg Tablet] 10 mg PO BID 4 Days #8 tablet 12/05/18 History of Present Illness History of Present Illness: Admitting hospitalist's H&P: YARI AZUL is a 58 year old male with h/o crohns disease came to ER with c/o nausea and vomiting associated with severe abd pain and watery diarrhea. He denies any fever but c/o chills. Not on prednisone for crohns disease. Work up in ER shows wbc 19.[address] shows colitis. Hospital Course Hospital Course: This is a 58 year old male with Crohns disease who presented with vomiting, abdominal pain and diarrhea. His CT showed nonspecific colitis. He was started on IV fluids, antibiotics and steroids. He was also seen by GI and underwent colonoscopy which was quite unremarkable. His diarrhea and abdominal pain resolved. He will closely follow-up with Dr. Luna. Physical Exam Vital Signs: Temp Pulse Resp BP Pulse Ox 97.6 F 71 18 150/77 H 93 12/05/18 14:21 12/05/18 14:21 12/05/18 14:21 12/05/18 14:21 12/05/18 14:21 Intake & Output 12/04/18 12/05/18 12/06/18 06:59 06:59 06:59 Intake Total 5780 3663 1680 Balance 5780 3663 1680 Weight 186 lb 15.232 oz 195 lb 15.855 oz General appearance: PRESENT: no acute distress, well-developed, well-nourished Head exam: PRESENT: atraumatic, normocephalic Eye exam: PRESENT: conjunctiva pink, EOMI, PERRLA. ABSENT: scleral icterus Ear exam: PRESENT: normal external ear exam Mouth exam: PRESENT: moist, tongue midline Neck exam: ABSENT: carotid bruit, JVD, lymphadenopathy, thyromegaly Respiratory exam: PRESENT: clear to auscultation raeann. ABSENT: rales, rhonchi, w heezes Cardiovascular exam: PRESENT: RRR. ABSENT: diastolic murmur, rubs, systolic murmur Pulses: PRESENT: normal dorsalis pedis pul GI/Abdominal exam: PRESENT: normal bowel sounds, soft. ABSENT: distended, guarding, mass, organolmegaly, rebound, tenderness Rectal exam: PRESENT: deferred Extremities exam: PRESENT: full ROM. ABSENT: calf tenderness, clubbing, pedal edema Neurological exam: PRESENT: alert, awake, oriented to person, oriented to place, oriented to time, oriented to situation, CN II-XII grossly intact. ABSENT: motor sensory deficit Results Laboratory Results: 12/05/18 13:07 12/05/18 13:07 12/05/18 12/05/18 13:07 13:07 WBC 10.8 H RBC 5.63 H Hgb 16.2 Hct 47.6 MCV 85 MCH 28.8 MCHC 34.1 RDW 14.0 Plt Count 159 Seg Neutrophils % 80.0 H Sodium 137.1 Potassium 4.1 Chloride 102 Carbon Dioxide 27 Anion Gap 8 BUN 17 Creatinine 0.86 Est GFR ( Amer) > 60 Glucose 108 Calcium 8.6 12/01/18 12/01/18 12/01/18 04:00 04:00 10:15 Creatine Kinase 83 69 CK-MB (CK-2) 1.41 Troponin I < 0.012 NT-Pro-B Natriuret Pep 12/01/18 12/01/18 12/01/18 10:15 16:37 16:37 Creatine Kinase 61 CK-MB (CK-2) 1.15 1.15 Troponin I < 0.012 < 0.012 NT-Pro-B Natriuret Pep 12/02/18 05:16 Creatine Kinase CK-MB (CK-2) Troponin I NT-Pro-B Natriuret Pep 281 Impressions: Abdomen/Pelvis CT 12/01/18 04:46 IMPRESSION: Fluid-filled colon secondary to underlying diarrheal process/colitis. Qualifiers - * PATIENT BEING DISCHARGED WITH ANY OF THE FOLLOWING DIAGNOSIS: No Acute Heart Failure - Is this a Heart Failure Patient?: No LVEF < 40%?: No- if no continue to question #3 3. Anticoagulant therapy for permanect/persistent/paraoxysmal Afib or Aflutter: N/A
== END 2018-12-05 15:21 | disposition home or self-care (01) | DRG 387 ==
LOC: ER 03:19 → EH 07:49 → 5 13:46
PROVIDERS: ADMIT Internal Medicine; ATTEND Internal Medicine
PROC: 0DBF8ZX Excision of Right Large Intestine, Via Natural or Artificial Opening Endoscopic, Diagnostic (ICD-10-PCS; principal; 2018-12-03 11:00)
DX: K50.10 Crohn's disease of large intestine without complications (principal); E86.0 Dehydration; D72.829 Elevated white blood cell count, unspecified; F17.290 Nicotine dependence, other tobacco product, uncomplicated; Z88.0 Allergy status to penicillin
CPT/HCPCS: 36415; 45380; 74177; 80048; 80053; 80061; 80307; 81001; 811; 82550; 82553; 83036; 83605; 83690; 83735; 83880; 84439; 84443; 84481; 84484; 85025; 85027; 85652; 86140; 87040; 87086; 88305; 96361; 96365; 96375; 96376; 99284; J0744; J1170; J1200; J1650; J2270; J2405; J2704; J2765; J2920; J2930; J3490; J7030; J7512; S0164

== ENCOUNTER 2018-12-24 09:29 | Day surgery (SDC) | payer SELFPAY ==
[~2018-12-24 09:29] MED LIST: PROPOFOL INJ 200 MG/20 ML VIAL IV ONE
[2018-12-24 11:41] VITALS: BP 122/66
--- NOTE | 2018-12-24 12:41 | Operative Report ---
Operative Report DATE OF SURGERY: 12/24/18 Operative Report: The risks benefits and alternatives of the procedure explained to the patient in detail and informed consent is obtained.A GIF Olympus video scope was inserted into the patient's mouth and hypopharynx, the esophagus is identified intubated and insufflated, the scope was then advanced through the esophagus stomach and duodenum, retroflexion maneuver is done ,the esophagus stomach and first and second portions of the duodenum examined. PREOPERATIVE DIAGNOSIS: Dyspepsia, early satiety POSTOPERATIVE DIAGNOSIS: Duodenitis. Gastritis status post biopsy for Helicobacter pylori OPERATION: EGD with biopsy SURGEON: LISA OCHOA ANESTHESIA: LMAC TISSUE REMOVED OR ALTERED: As noted above. COMPLICATIONS: None. ESTIMATED BLOOD LOSS: None. INTRAOPERATIVE FINDINGS: As noted above. PROCEDURE: Patient tolerated the procedure well. No immediate postprocedure complications are noted. Patient is discharged in good condition. Discharge date 12/24/2018. Discharge diet: Regular. Discharge activity: Regular. 2 to 3-week follow-up to discuss findings. Patient is instructed to call the office or proceed to the emergency room should there be any further problems or questions. Wait on the pathology.
== END 2018-12-24 11:50 | disposition home or self-care (01) ==
LOC: END 09:29
PROVIDERS: ATTEND Internal Medicine Gastroenterology
DX: K29.50 Unspecified chronic gastritis without bleeding (principal); K29.80 Duodenitis without bleeding; J45.909 Unspecified asthma, uncomplicated; K50.90 Crohn's disease, unspecified, without complications; Z79.891 Long term (current) use of opiate analgesic
CPT/HCPCS: 43239; 88305 ×2; 00731; J2704; 731

== ENCOUNTER 2019-09-05 12:44 | Emergency (ER) | payer SELFPAY ==
[2019-09-05] MEDS ORDERED: METHYLPREDNISOLONE INJ 125 MG/2 ML SDV IV ONE (13:45)
[2019-09-05] MEDS ORDERED: IPRATROPIUM/ALBUTEROL 0.5-2.5 MG/3 ML AMPUL NEB ONE (13:45)
--- NOTE | 2019-09-05 13:53 | ER Document Report ---
ED Respiratory Problem - General Chief Complaint: Shortness Of Breath Stated Complaint: SHORT OF BREATH,COUGH Time Seen by Provider: 09/05/19 13:22 Mode of Arrival: Ambulatory Information source: Patient Notes: Patient is a 59-year-old male comes the emergency room with a 5-day onset of increasing shortness of breath. Patient states he has a past medical history pertinent only for asthma. He states that usually acts up in the early spring. He does state that since he has been quarantining himself at home he is only been twice in the past 60 days and he has been doing renovations at his daughter's house. He states he did put up drywall and ascended it down and was sweeping up the drywall dust into a pile as he bent down the fan on the floor blew the pile into his face. Patient states he started gagging and coughing and ever since then he has had difficulty with breathing. He has done at minimum 5 nebulized treatments of albuterol per day for the past 5 days without any relie f. He states that when he lays down he feels a heaviness in his chest and then begins coughing. He denies any fever. He denies any known association with anyone with COVID-19. He stopped smoking and drinking approximately 1 year ago. He denies any heart history in the past. He denies any nausea vomiting or diarrhea. TRAVEL OUTSIDE OF THE [place] IN LAST 30 DAYS: No - HPI Patient complains to provider of: Asthma Onset: Last week Duration: Continuous Initiating Event: Allergy, Exposure to dust Quality of pain: Achy Severity: Moderate Pain Level: 3 Context: denies: Hx CHF, Recent cardiac event, Recent foreign travel, Recent long distance trvl, Recent immobilization, Recent surgery, Smoker Short of Breath: Moderate Chest pain/discomfort: Intermittent, Worse with deep breaths. denies: Radiates to arm, Radiates to back, Radiates to jaw Cough: Nonproductive Sputum amount: None At home treatment: Bronchodilators Associated symptoms: Allergy/hay fever, Chest pain/discomfort, Difficulty breathing, Hurts to breathe, Sinus pain/pressure, Wheezing. denies: Fever, Headache, Heart racing, Leg/calf/joint pain Worsened by: Exertion Similar symptoms previously: Yes Recently seen / treated by doctor: No - Related Data Allergies/Adverse Reactions: Penicillins Allergy (Severe, Verified 12/01/18 04:28) Seizures Past Medical History - General Information source: Patient - Social History Smoking Status: Former Smoker Frequency of alcohol use: None Drug Abuse: None Lives with: Family Family History: Reviewed & Not Pertinent Patient has homicidal ideation: No - Past Medical History Cardiac Medical History: Denies: Hx Coronary Artery Disease, Hx Heart Attack, Hx Hypertension Pulmonary Medical History: Reports: Hx Asthma Denies: Hx Bronchitis, Hx COPD, Hx Pneumonia Neurological Medical History: Denies: Hx Cerebrovascular Accident, Hx Seizures Renal/ Medical History: Denies: Hx Peritoneal Dialysis GI Medical History: Reports: Hx Crohn's Disease Musculoskeletal Medical History: Denies Hx Arthritis Past Surgical History: Reports: Hx Appendectomy, Hx Bowel Surgery, Hx Cholecystectomy - Immunizations Immunizations up to date: Yes Hx Diphtheria, Pertussis, Tetanus Vaccination: No Review of Systems - Review of Systems Constitutional: denies: Fever, Weakness EENT: Nose congestion, Sinus pressure Cardiovascular: See HPI, Chest pain Respiratory: Cough, Hurts to breathe, Short of breath, Wheezing Gastrointestinal: No symptoms reported Genitourinary: No symptoms reported Male Genitourinary: No symptoms reported Musculoskeletal: No symptoms reported Skin: No symptoms reported Hematologic/Lymphatic: No symptoms reported Neurological/Psychological: No symptoms reported -: Yes All other systems reviewed and negative Physical Exam - Vital signs Vitals: Temp Pulse Resp BP Pulse Ox 98.4 F 91 20 163/90 H 94 09/05/19 13:16 09/05/19 13:16 09/05/19 13:16 09/05/19 13:16 09/05/19 13:16 Interpretation: Hypertensive - Notes Notes: PHYSICAL EXAMINATION: GENERAL: Patient is a well-nourished well-developed 59-year-old male who is in no apparent distress on physical examination however appears very much uncomfortable. He is not tachypneic. He is slightly hypoxic with a saturation of 94%. He is slightly hypertensive as well. HEAD: Atraumatic, normocephalic. EYES: Pupils equal round and reactive to light, extraocular movements intact, sclera anicteric, conjunctiva are normal. ENT: Examination head and upper airway showed nasal mucosa to be erythematous and edematous with some rhinorrhea noted. Patient displays bilateral nasal congestion as well. No frontal or maxillary sinus tenderness to palpation. Bilateral TMs bulging with no air-fluid levels noted. Posterior pharynx shows some mild erythema with drainage in the posterior pharynx slightly yellowish clear to color. Uvula is midline with no erythema no exudate and there is no encroachment upon the uvula. Airway is patent. NECK: Normal range of motion, supple without lymphadenopathy LUNGS: Auscultation patient's lungs shows he has bilateral breath sounds that are severely decreased throughout notable inspiratory and expiratory wheezes are noted with scattered coarse rhonchi throughout. HEART: Regular rate and rhythm without murmurs ABDOMEN: Examination patient's abdomen shows bowel sounds to be present all 4 qu ads. In a semierect position secondary to patient having difficulty breathing in a supine position examination shows some tympany in the upper quadrants to percussion. No tenderness noted throughout. Musculoskeletal: Normal range of motion, no pitting or edema. No cyanosis. NEUROLOGICAL: Cranial nerves grossly intact. Normal speech, normal gait. Normal sensory, motor exams PSYCH: Normal mood, normal affect. SKIN: Warm, Dry, normal turgor, no rashes or lesions noted. Course - Re-evaluation Re-evalutation: 09/05/19 13:56 Patient also states that he has had extensive abdominal surgeries in the past. 09/05/19 18:52 But has extended patient's time in ER significantly is that his blood hemolyzed and I took lab along time to come down recollected. And also that patient sat dropped with ambulation and he was still short of breath so given his presentation and not getting better I have elected to go ahead with a CTA of his chest. So we are waiting on him to have that done. 09/05/19 22:09 Patient actually ambulated fairly well with both my portable pulse ox and with the pulse ox that is unrelated by the nursing staff. He maintained 94% on no O2. Sitting in the room he had a tendency to dip down slightly to about 92 but he has been feeling more comfortable since the medications have had a chance to work. I have had a long talk with the patient I feel it is safe for him to go home on steroids and his nebulized treatments I have given him my name and informed him that if he feels still short of breath tomorrow or if he has any concerns to contact me or come back to the hospital and I will reevaluate him and have him admitted. Patient is very pleased with this idea he wants to go home at this point in time and thinks he can handle it on his own. - Vital Signs Vital signs: Temp Pulse Resp BP Pulse Ox 98.4 F 91 19 180/95 H 91 L 09/05/19 13:17 09/05/19 13:16 09/05/19 20:00 09/05/19 17:01 09/05/19 20:38 - Laboratory Result Diagrams: 09/05/19 14:10 09/05/19 15:41 Laboratory results interpreted by me: 09/05/19 09/05/19 09/05/19 14:10 15:41 19:22 RBC 6.04 H Hgb 17.3 H RDW 14.4 H Eos % (Auto) 6.6 H Absolute Eos (auto) 0.7 H ABG pO2 53.3 L ABG O2 Saturation 87.8 L Sodium 134.7 L Glucose 143 H Magnesium 3.1 H Total Bilirubin 1.5 H Discharge - Discharge Clinical Impression: Asthma attack Qualifiers: Asthma severity: severe Asthma persistence: persistent Qualified Code(s): J45.51 - Severe persistent asthma with (acute) exacerbation Condition: Stable Disposition: HOME, SELF-CARE Instructions: Asthma ([facility]), Bronchitis With Bronchospasm (Wheezing) ([facility]) Additional Instructions: Home and rest. Medications prescribed. As we discussed my name is Aj Merino physician advertising sales assistant to be working again tomorrow from 1 PM to 1 AM. As we discussed should you have concerns that you are not feeling better or that you need to be reevaluated be more than happy to see you again at that time and expedite any process since I know your case. If you need to come back sooner than that please feel free to do so. Also please note that it is easier to steve athhola in a cool room so keep her air conditioner on and not just a fan blowing dust. Do your nebulizer treatments every 4 hours for the next 4 to 5 days and increase it to every 6 hours as deemed appropriate. Prescriptions: Doxycycline Hyclate 100 mg PO BID #20 tablet. Ipratropium/Albuterol Sulfate [Duoneb 3 ml Ampul] 3 ml NEB RTQ6 #60 vial.neb Prednisone 10 mg PO ASDIR PRN 6 Days #1 tab.ds.pk PRN Reason: Forms: Elevated Blood Pressure Referrals: [facility] [Provider Group] - Follow up as needed
[2019-09-05] MEDS: MAGNESIUM SULFATE/D5W 1 GM/100 ML RTUPB IV SCH ×2 (14:30→15:08)
[2019-09-05 14:39] LABS: ABSOLUTE BASOPHILS # (AUTO) 0.1 10^3/uL (0.0-0.2); ABSOLUTE EOSINOPHILS # (AUTO) 0.7 10^3/uL (0.0-0.6); ABSOLUTE LYMPHOCYTES (AUTO) 1.9 10^3/uL (0.5-4.7); ABSOLUTE MONOCYTES (AUTO) 0.6 10^3/uL (0.1-1.4); ABSOLUTE NEUT (AUTO) 6.7 10^3/uL (1.7-8.2); BASOPHILS % (AUTO) 1.4 % (0-2); EOSINOPHILS % (AUTO) 6.6 % (0-6); HEMATOCRIT 50.4 % (37.9-51.0); HEMOGLOBIN 17.3 g/dL (13.5-17.0); LYMPHOCYTES % (AUTO) 18.5 % (13-45); MEAN CORPUSCULAR HEMOGLOBIN 28.7 pg (27.0-33.4); MEAN CORPUSCULAR HGB CONC 34.4 g/dL (32.0-36.0); MEAN CORPUSCULAR VOLUME 83 fl (80-97); MONOCYTES % (AUTO) 6.2 % (3-13); PLATELET COUNT 214 10^3/uL (150-450); RED BLOOD COUNT 6.04 10^6/uL (4.35-5.55); RED CELL DISTRIBUTION WIDTH 14.4 % (11.5-14.0); SEGMENTED NEUTROPHILS % (AUTO) 67.3 % (42-78); TOTAL CELLS COUNTED % (AUTO) 100 %
--- NOTE | 2019-09-05 15:02 | RADIOLOGY REPORT (SQ) ---
EXAM DESCRIPTION: CHEST 2 VIEWS IMAGES COMPLETED DATE/TIME: 09/05/2019 2:51 pm REASON FOR STUDY: sob COMPARISON: CT abdomen pelvis 12/01/2018 EXAM PARAMETERS: NUMBER OF VIEWS: two views TECHNIQUE: Digital Frontal and Lateral radiographic views of the chest acquired. RADIATION DOSE: NA LIMITATIONS: none FINDINGS: LUNGS AND PLEURA: Smooth round 1 cm nodule just above the left hemidiaphragm 12 mm size, s imilar compared to CT exam 09/25/2018. No acute infiltrates. No pleural effusion. No pneumothorax. MEDIASTINUM AND HILAR STRUCTURES: No masses or contour abnormalities. HEART AND VASCULAR STRUCTURES: Heart normal size. No evidence for failure. BONES: No acute findings. HARDWARE: None in the chest. OTHER: No other significant finding. IMPRESSION: No acute findings. Stable 11 mm nodule just above the left hemidiaphragm as compared to CT abdomen pelvis 12/01/2018 TECHNICAL DOCUMENTATION: JOB ID: [id number] 2010 [employer]- All Rights Reserved Reading location - IP/workstation name: [email or web address]
[2019-09-05 16:14] LABS: ALBUMIN 4.8 g/dL (3.5-5.0); ALKALINE PHOSPHATASE 80 U/L (38-126); ANION GAP 9 (5-19); ASPARTATE AMINO TRANSFERASE 30 U/L (17-59); BILIRUBIN,TOTAL 1.5 mg/dL (0.2-1.3); BLOOD UREA NITROGEN 18 mg/dL (7-20); CALCIUM 9.3 mg/dL (8.4-10.2); CARBON DIOXIDE 26 mmol/L (22-30); CHLORIDE 100 mmol/L (98-107); CREATINE KINASE 84 U/L (55-170); GLUCOSE 143 mg/dL (75-110); POTASSIUM 4.4 mmol/L (3.6-5.0); TOTAL PROTEIN 7.6 g/dL (6.3-8.2)
--- NOTE | 2019-09-05 16:55 | EKG REPORT ---
SEVERITY:- BORDERLINE ECG - SINUS RHYTHM PROBABLE LEFT ATRIAL ABNORMALITY BORDERLINE INFERIOR Q WAVES : Confirmed by: Emmanuel Leon MD 05-Sep-2019 16:54:00
[2019-09-05 19:40] LABS: ARTERIAL BLOOD BASE EXCESS -0.5 mmol/L; ARTERIAL BLOOD FIO2 2L; ARTERIAL BLOOD H2CO3 1.19 mmol/L (1.05-1.35); ARTERIAL BLOOD O2 SATURATION 87.8 % (94-98); ARTERIAL BLOOD PCO2 39.5 mmHg (35-45); ARTERIAL BLOOD PO2 53.3 mmHg (80-100); ARTERIAL BLOOD TOTAL CO2 25.2 mmol/L (23-27)
--- NOTE | 2019-09-05 20:06 | RADIOLOGY REPORT (SQ) ---
EXAM DESCRIPTION: CTA CHEST IMAGES COMPLETED DATE/TIME: 09/05/2019 6:39 pm REASON FOR STUDY: sob hypoxemia COMPARISON: CT abdomen and pelvis, 12/01/2018 TECHNIQUE: CT scan of the chest performed using helical scanning technique with dynamic intravenous contrast injection. Images reviewed with lung, soft tissue and bone windows. Reconstructed coronal and sagittal MPR images reviewed. Additional 3 dimensional post-processing performed to develop Maximal Intensity Projection images ([place] P). All images stored on PACS. All CT scanners at this facility use dose modulation, iterative reconstruction, and/or weight based d osing when appropriate to reduce radiation dose to as low as reasonably achievable (ALARA). [facility]: Dose Right [facility]: CareDose [facility]: Dose Right [facility]: Teradose 4D [facility]: Glowbl CONTRAST TYPE AND DOSE: contrast/concentration: Isovue 350.00 mg/ml; Total Contrast Delivered: 61.0 ml; Total Saline Delivered: 67.0 ml Contrast bolus optimized for the pulmonary arteries. Not diagnostic for the aorta. RENAL FUNCTION: GFR > 60. RADIATION DOSE: CT Rad equipment meets quality standard of care and radiation dose reduction techniq ues were employed. CTDIvol: 6.6 - 14.7 mGy. DLP: 545 mGy-cm. . LIMITATIONS: None. FINDINGS: LUNGS AND PLEURA: The trachea has normal caliber and appearance. No bronchial wall thicke damián or bronchiectasis. No focal consolidation. A circumscribed 1.3 cm solid nodule at the left corona g base is unchanged from previous CT performed 12/01/2018. AORTA AND GREAT VESSELS: No aneurysm. Contrast bolus not optimized for the aorta. HEART: No pericardial effusion. No significant coronary artery calcifications. PULMONARY ARTERIES: No emboli visualized in the main pulmonary arteries or the segmental branches. HILAR AND MEDIASTINAL STRUCTURES: No identified masses or abnormal nodes. HARDWARE: None in the chest. UPPER ABDOMEN: No significant findings. Limited exam. THYROID AND OTHER SOFT TISSUES: No masses. No adenopathy. BONES: No acute or significant finding. 3D MIPS: Confirm above findings. OTHER: No other significant finding. IMPRESSION: 1. No pulmonary embolism. No acute pulmonary disease. 2. Stable 1.3 cm solid nodule at the left lung base. Given stability this is likely a postinflammato ry nodule. A follow-up CT of the chest in 1 year could be performed to document stability. COMMENT: Quality ID # [id number]: Final reports with documentation of one or more dose reduction techniques (e.g., Automated exposure control, adjustment of the mA and/or kV according to patient size, use of iterative reconstruction technique) TECHNICAL DOCUMENTATION: JOB ID: [id number] 2010 [facility]- All Rights Reserved Reading location - IP/workstation name: [email or web address]
[2019-09-05 23:56] VITALS: BP 153/83
== END 2019-09-05 23:56 | disposition home or self-care (01) ==
LOC: ER 12:44
DX: J45.51 Severe persistent asthma with (acute) exacerbation (principal); R06.02 Shortness of breath; R09.81 Nasal congestion; J34.89 Other specified disorders of nose and nasal sinuses; R07.1 Chest pain on breathing; R14.0 Abdominal distension (gaseous); I10 Essential (primary) hypertension; Z79.899 Other long term (current) drug therapy; Z87.891 Personal history of nicotine dependence; Z88.0 Allergy status to penicillin
CPT/HCPCS: 93005; 94640; 99285; 96375; 96365; 36415; 82803; 82550; 83735; 85025; 80053; 84484; 71046; 71275; 93010; J2930; J3475; J7620

== ENCOUNTER 2019-09-19 09:42 | Emergency (ER) | payer SELFPAY ==
--- NOTE | 2019-09-19 10:06 | ER Document Report ---
ED Respiratory Problem - General Chief Complaint: Cough Stated Complaint: COUGH,CONGESTION,DIFICULTY BREATHING Time Seen by Provider: 09/19/19 09:56 Mode of Arrival: Ambulatory Information source: Patient Notes: 59-year-old male past medical history significant for asthma presents to the emergency room for worsening shortness of breath and wheezing for the past 2 days. Patient was seen here the end of August improved enough to be able to be discharged home but states he symptoms never fully resolved and have worsened over the past 2 days. States he is using his inhaler, took the prednisone and antibiotics as prescribed. Has not followed up with his primary care physician. Has had no recent travel. No COVID-19 exposure. Symptoms started after inhaling some dust after doing drywall. Denies chest pain.. TRAVEL OUTSIDE OF THE [place] IN LAST 30 DAYS: No - Related Data Allergies/Adverse Reactions: Penicillins Allergy (Severe, Verified 12/01/18 04:28) Seizures Past Medical History - General Information source: Patient - Social History Smoking Status: Former Smoker Frequency of alcohol use: Occasional Drug Abuse: None Family History: Reviewed & Not Pertinent - Past Medical History Cardiac Medical History: Denies: Hx Coronary Artery Disease, Hx Heart Attack, Hx Hypertension Pulmonary Medical History: Reports: Hx Asthma Denies: Hx Bronchitis, Hx COPD, Hx Pneumonia Neurological Medical History: Denies: Hx Cerebrovascular Accident, Hx Seizures Renal/ Medical History: Denies: Hx Peritoneal Dialysis GI Medical History: Reports: Hx Crohn's Disease Musculoskeletal Medical History: Denies Hx Arthritis Past Surgical History: Reports: Hx Appendectomy, Hx Bowel Surgery, Hx Cholecystectomy - Immunizations Immunizations up to date: Yes Hx Diphtheria, Pertussis, Tetanus Vaccination: No Review of Systems - Review of Systems Constitutional: No symptoms reported EENT: No symptoms reported Cardiovascular: No symptoms reported Respiratory: Short of breath, Wheezing Gastrointestinal: No symptoms reported Skin: No symptoms reported Neurological/Psychological: No symptoms reported -: Yes All other systems reviewed and negative Physical Exam - Vital signs Vitals: Temp Pulse Resp BP Pulse Ox 98.0 F 102 H 24 H 152/96 H 95 09/19/19 09:52 09/19/19 09:52 09/19/19 09:52 09/19/19 09:52 09/19/19 09:52 - General General appearance: Appears well, Alert In distress: Mild - HEENT Head: Normocephalic, Atraumatic Eyes: Normal Pupils: PERRL - Respiratory Respiratory status: No respiratory distress Chest status: Nontender Breath sounds: Wheezing. No: Rales, Rhonchi Chest palpation: Normal - Cardiovascular Rhythm: Tachycardia Heart sounds: Normal auscultation Murmur: No Friction rub: No - Neurological Neuro grossly intact: Yes Cognition: Normal Orientation: AAOx4 [place] Coma Scale Eye Opening: Spontaneous Michele Coma Scale Verbal: Oriented Michele Coma Scale Motor: Obeys Commands [place] Coma Scale Total: 15 Speech: Normal Motor strength normal: LUE, RUE, LLE, RLE Sensory: Normal - Skin Skin Temperature: Warm Skin Moisture: Dry Skin Color: Normal Course - Re-evaluation Re-evalutation: 09/19/2019 10.10 Patient with persistent asthma exacerbation. Tachypneic. Will do cardiac work- up, chest x-ray, Solu-Medrol and nebulizer treatments for his wheezing and reevaluate. 09/19/19 11:33 Unable to get IV access after multiple attempts by nursing staff. Unable to get labs after multiple attempts by nursing staff. Will change Solu-Medrol from IV to IM 09/19/19 12:58 Patient with persistent wheezing, complains of persistent shortness of breath. Will do walking pulse ox, minimal relief with DuoNeb. Will give Xopenex neb treatment. Reevaluate. 09/19/19 12:59 09/19/19 14:56 Patient is resting comfortably wheezing has improved. Pulse ox remained in the mid to high 90s during walking test. All test results were [facility] Case was staffed with ED attending Dr. Solorio who agrees that patient can be safely discharged home with current plan of care. We will change nebulizer to Xopenex instead of DuoNeb's. Add longer course of prednisone. Patient was counseled on the importance of calling his primary care physician for a follow-up pulmonology referral. Patient was given strict return to the emergency room guidelines. Return for any new or worsening symptoms. All questions were answered. Patient verbalized understanding and agrees with plan of care. 09/19/19 15:41 - Vital Signs Vital signs: Temp Pulse Resp BP Pulse Ox 98.4 F 102 H 19 161/92 H 92 09/19/19 15:34 09/19/19 09:52 09/19/19 15:01 09/19/19 15:00 09/19/19 15:01 - Laboratory Result Diagrams: 09/19/19 11:34 09/19/19 11:34 Laboratory results interpreted by me: 09/19/19 09/19/19 09/19/19 11:34 11:34 13:35 WBC 12.4 H RBC 5.85 H RDW 14.1 H Absolute Neuts (auto) 8.8 H Absolute Eos (auto) 0.7 H ABG pO2 71.6 L ABG Total CO2 22.7 L Glucose 111 H - Diagnostic Test Radiology reviewed: Reports reviewed - EKG Interpretation by Me Additional EKG results interpreted by me: 09/19/19 11:40 EKG interpreted by ED physician Dr. Abreu no acute STEMI Discharge - Discharge Clinical Impression: Pulmonary nodule, left Asthma exacerbation Qualifiers: Asthma severity: moderate Asthma persistence: persistent Qualified Code(s): J45.41 - Moderate persistent asthma with (acute) exacerbation Dyspnea Qualifiers: Dyspnea type: shortness of breath Qualified Code(s): R06.02 - Shortness of breath Condition: Stable Disposition: HOME, SELF-CARE Instructions: Asthma (OM), Dyspnea, Nonspecific (OM) Additional Instructions: You were seen for an asthma exacerbation. Your symptoms improved with treatment here in the emergency department. However, it is very important that you return to the emergency department immediately if you began to have worsening difficulty breathing that does not respond to your normal home nebulizers. You are also being sent home on a six day course of steroids that you should start taking tomorrow. Please also follow closely with your primary care physician. you should also return to emergency department if you develop fever greater than 101, persistent cough, persistent vomiting, pass out, or any other symptoms that are concerning to you. It has been discussed that you have a lung nodule on your chest x-ray that needs to be followed up by your primary care physician. Nodules are usually a benign finding but you need to be followed by your primary care physician for follow-up on the nodule. Stop the DuoNeb and start with the Xopenex nebulizers. Prescriptions: Prednisone [Deltasone 20 mg Tablet] 20 mg PO DAILY #12 tablet Levalbuterol HCl [Xopenex Neb 1.25 mg/3 ml Ampul] 1.25 mg NEB [id number] PRN #30 vial.neb PRN Reason:
[2019-09-19] MEDS ORDERED: IPRATROPIUM/ALBUTEROL 0.5-2.5 MG/3 ML AMPUL NEB ONE (10:07)
[2019-09-19] MEDS ORDERED: METHYLPREDNISOLONE INJ 125 MG/2 ML SDV IV ONE ×2 (10:07→11:44)
--- NOTE | 2019-09-19 10:35 | RADIOLOGY REPORT (SQ) ---
EXAM DESCRIPTION: CHEST 2 VIEWS IMAGES COMPLETED DATE/TIME: 09/19/2019 10:15 am REASON FOR STUDY: dyspnea COMPARISON: Chest radiographs 09/05/2019. CTA chest 09/05/2019. EXAM PARAMETERS: NUMBER OF VIEWS: two views TECHNIQUE: Digital Frontal and Lateral radiographic views of the chest acquired. RADIATION DOSE: NA LIMITATIONS: none FINDINGS: LUNGS AND PLEURA: No opacities, or pneumothorax. Unchanged size of 1.1 cm left basilar pu lmonary nodule. No pleural effusion. MEDIASTINUM AND HILAR STRUCTURES: No masses or contour abnormalities. HEART AND VASCULAR STRUCTURES: Heart normal size. No evidence for failure. BONES: No acute findings. HARDWARE: Upper abdominal surgical clips. OTHER: No other significant finding. IMPRESSION: No acute pulmonary findings. Unchanged size of 1.1 cm left basilar pulmonary nodule. TECHNICAL DOCUMENTATION: JOB ID: [id number] 2010 [employer]- All Rights Reserved Reading location - IP/workstation name: [email or web address]
[2019-09-19] MEDS ORDERED: METHYLPREDNISOLONE INJ 125 MG/2 ML SDV IM ONE (11:33)
[2019-09-19 11:55] LABS: ABSOLUTE BASOPHILS # (AUTO) 0.1 10^3/uL (0.0-0.2); ABSOLUTE EOSINOPHILS # (AUTO) 0.7 10^3/uL (0.0-0.6); ABSOLUTE LYMPHOCYTES (AUTO) 2.2 10^3/uL (0.5-4.7); ABSOLUTE MONOCYTES (AUTO) 0.6 10^3/uL (0.1-1.4); ABSOLUTE NEUT (AUTO) 8.8 10^3/uL (1.7-8.2); EOSINOPHILS % (AUTO) 5.3 % (0-6); HEMOGLOBIN 16.7 g/dL (13.5-17.0); MEAN CORPUSCULAR HEMOGLOBIN 28.5 pg (27.0-33.4); MEAN CORPUSCULAR VOLUME 84 fl (80-97); MONOCYTES % (AUTO) 4.9 % (3-13); PLATELET COUNT 203 10^3/uL (150-450); RED BLOOD COUNT 5.85 10^6/uL (4.35-5.55); RED CELL DISTRIBUTION WIDTH 14.1 % (11.5-14.0); SEGMENTED NEUTROPHILS % (AUTO) 70.8 % (42-78); TOTAL CELLS COUNTED % (AUTO) 100 %; WHITE BLOOD COUNT 12.4 10^3/uL (4.0-10.5)
[2019-09-19 12:12] LABS: ALBUMIN 4.6 g/dL (3.5-5.0); ALKALINE PHOSPHATASE 69 U/L (38-126); ANION GAP 9 (5-19); ASPARTATE AMINO TRANSFERASE 22 U/L (17-59); BILIRUBIN,TOTAL 1.2 mg/dL (0.2-1.3); BLOOD UREA NITROGEN 19 mg/dL (7-20); CALCIUM 9.7 mg/dL (8.4-10.2); CARBON DIOXIDE 25 mmol/L (22-30); CHLORIDE 104 mmol/L (98-107); CREATINE KINASE 55 U/L (55-170); GLUCOSE 111 mg/dL (75-110); POTASSIUM 4.5 mmol/L (3.6-5.0); TOTAL PROTEIN 7.5 g/dL (6.3-8.2)
[2019-09-19 12:24] LABS: CREATINE KINASE MB 0.98 ng/mL (<4.55)
[2019-09-19 12:27] LABS: TROPONIN I < 0.012 ng/mL
[2019-09-19] MEDS ORDERED: LEVALBUTEROL HCL NEB 1.25 MG/3 ML AMPUL NEB ONE (12:59)
[2019-09-19 13:53] LABS: ARTERIAL BLOOD BASE EXCESS -2.9 mmol/L; ARTERIAL BLOOD H2CO3 1.11 mmol/L (1.05-1.35); ARTERIAL BLOOD HCO3 21.5 mmol/L (20-24); ARTERIAL BLOOD O2 SATURATION 94.3 % (94-98); ARTERIAL BLOOD PCO2 36.8 mmHg (35-45); ARTERIAL BLOOD PH 7.39 (7.35-7.45); ARTERIAL BLOOD PO2 71.6 mmHg (80-100); ARTERIAL BLOOD TOTAL CO2 22.7 mmol/L (23-27)
[2019-09-19 13:54] LABS: ARTERIAL BLOOD FIO2 ROOM AIR
[2019-09-19 15:23] VITALS: BP 161/92
--- NOTE | 2019-09-19 21:53 | EKG REPORT ---
SEVERITY:- NORMAL ECG - SINUS RHYTHM : Confirmed by: Melany Gaviria MD 19-Sep-2019 21:52:56
== END 2019-09-19 15:36 | disposition home or self-care (01) ==
LOC: ER 09:42
DX: J45.41 Moderate persistent asthma with (acute) exacerbation (principal); R91.1 Solitary pulmonary nodule; R05 Cough; R09.81 Nasal congestion; R06.02 Shortness of breath; Z88.0 Allergy status to penicillin; Z87.891 Personal history of nicotine dependence
CPT/HCPCS: 93005; 94640 ×2; 99285; 96374; 36415; 82553; 82803; 82550; 83735; 85025; 80053; 84484; 71046; 93010; J2930; J3490; J7620

== ENCOUNTER 2019-10-09 10:52 | Observation (INO) | payer SELFPAY ==
[2019-10-09] MEDS ORDERED: IPRATROPIUM/ALBUTEROL 0.5-2.5 MG/3 ML AMPUL NEB ONE ×3 (11:28→14:11)
[2019-10-09] MEDS ORDERED: METHYLPREDNISOLONE INJ 125 MG/2 ML SDV IV ONE (11:28)
--- NOTE | 2019-10-09 11:31 | ER Document Report ---
ED Medical Screen (RME) - General Chief Complaint: Asthma Exacerbation Stated Complaint: ASTHMA EXACERBATION Time Seen by Provider: 10/09/19 11:23 TRAVEL OUTSIDE OF THE [place] IN LAST 30 DAYS: No - HPI Notes: 10/09/19 11:29 59-year-old male with a history of asthma presents to the emergency room for shortness of breath and wheezing that began progressively worse over the last 2 days. Patient states he has been using his rescue inhaler without relief. Patient states that his asthma started about a year ago from moving from [place] to [place], but 2 months ago he had drywall in his face which is caused him to have recurrent asthma exacerbations. He was seen on September 18 in the emergency room for asthma exacerbation, he did follow-up with his primary care provider is waiting for referral to pulmonology. Non-smoker, reports he has seasonal allergies. Not taking any allergy medication. Denies any chest pain, nausea vomiting or diarrhea, denies any fevers or chills. States that he becomes short of breath when just walking up the steps. I have greeted and performed a rapid initial assessment of this patient. A comprehensive ED assessment and evaluation of the patient, analysis of test results and completion of the medical decision making process will be conducted by additional ED providers. PHYSICAL EXAMINATION: GENERAL: Well-appearing, well-nourished and in no acute distress. HEAD: Atraumatic, normocephalic. NECK: Normal range of motion CV: s1, s2 regular LUNGS: Diminished breath sounds in upper lobes, scant wheezing in lower lobes, no rhonchi or rales Musculoskeletal: Normal range of motion NEUROLOGICAL: Normal speech, normal gait. SKIN: Warm, Dry, normal turgor, no rashes or lesions noted. - Related Data Allergies/Adverse Reactions: Penicillins Allergy (Severe, Verified 10/09/19 11:22) Seizures Past Medical History - Past Medical History Cardiac Medical History: Denies: Hx Coronary Artery Disease, Hx Heart Attack, Hx Hypertension Pulmonary Medical History: Reports: Hx Asthma Denies: Hx Bronchitis, Hx COPD, Hx Pneumonia Neurological Medical History: Denies: Hx Cerebrovascular Accident, Hx Seizures Renal/ Medical History: Denies: Hx Peritoneal Dialysis GI Medical History: Reports: Hx Crohn's Disease Musculoskeltal Medical History: Denies Hx Arthritis Past Surgical History: Reports: Hx Appendectomy, Hx Bowel Surgery, Hx Cholecystectomy - Immunizations Immunizations up to date: Yes Hx Diphtheria, Pertussis, Tetanus Vaccination: No Physical Exam - Vital signs Vitals: Temp Pulse Resp BP Pulse Ox 97.6 F 100 18 164/95 H 95 10/09/19 10:55 10/09/19 10:55 10/09/19 10:55 10/09/19 10:55 10/09/19 10:55 Course - Vital Signs Vital signs: Temp Pulse Resp BP Pulse Ox 97.6 F 100 18 164/95 H 95 10/09/19 10:55 10/09/19 10:55 10/09/19 10:55 10/09/19 10:55 10/09/19 10:55
--- NOTE | 2019-10-09 12:21 | RADIOLOGY REPORT (SQ) ---
EXAM DESCRIPTION: CHEST 2 VIEWS IMAGES COMPLETED DATE/TIME: 10/09/2019 12:07 pm REASON FOR STUDY: sob, wheezing COMPARISON: 09/19/2019 EXAM PARAMETERS: NUMBER OF VIEWS: two views TECHNIQUE: Digital Frontal and Lateral radiographic views of the chest acquired. RADIATION DOSE: NA LIMITATIONS: none FINDINGS: LUNGS AND PLEURA: Left lower lobe pulmonary nodule is unchanged. No acute infiltrate or e ffusion. MEDIASTINUM AND HILAR STRUCTURES: No masses or contour abnormalities. HEART AND VASCULAR STRUCTURES: Heart normal size. No evidence for failure. BONES: No acute findings. HARDWARE: None in the chest. OTHER: No other significant finding. IMPRESSION: Stable left lower lobe pulmonary nodule measures about 11 mm. No other significant find ing. TECHNICAL DOCUMENTATION: JOB ID: [id number] 2010 [employer]- All Rights Reserved Reading location - IP/workstation name: [email or web address]
[2019-10-09 13:42] LABS: ABSOLUTE BASOPHILS # (AUTO) 0.1 10^3/uL (0.0-0.2); ABSOLUTE EOSINOPHILS # (AUTO) 0.5 10^3/uL (0.0-0.6); ABSOLUTE LYMPHOCYTES (AUTO) 2.4 10^3/uL (0.5-4.7); ABSOLUTE MONOCYTES (AUTO) 0.7 10^3/uL (0.1-1.4); ABSOLUTE NEUT (AUTO) 6.4 10^3/uL (1.7-8.2); BASOPHILS % (AUTO) 0.8 % (0-2); EOSINOPHILS % (AUTO) 4.8 % (0-6); HEMATOCRIT 48.4 % (37.9-51.0); LYMPHOCYTES % (AUTO) 23.6 % (13-45); MEAN CORPUSCULAR HEMOGLOBIN 29.1 pg (27.0-33.4); MEAN CORPUSCULAR VOLUME 83 fl (80-97); MONOCYTES % (AUTO) 6.9 % (3-13); PLATELET COUNT 193 10^3/uL (150-450); RED BLOOD COUNT 5.82 10^6/uL (4.35-5.55); RED CELL DISTRIBUTION WIDTH 14.3 % (11.5-14.0); SEGMENTED NEUTROPHILS % (AUTO) 63.9 % (42-78); TOTAL CELLS COUNTED % (AUTO) 100 %
[2019-10-09 14:11] LABS: ALBUMIN 4.9 g/dL (3.5-5.0); ALKALINE PHOSPHATASE 77 U/L (38-126); ANION GAP 9 (5-19); ASPARTATE AMINO TRANSFERASE 26 U/L (17-59); BILIRUBIN,DIRECT 0.1 mg/dL (0.0-0.4); BILIRUBIN,TOTAL 1.5 mg/dL (0.2-1.3); BLOOD UREA NITROGEN 18 mg/dL (7-20); CALCIUM 10.2 mg/dL (8.4-10.2); CARBON DIOXIDE 26 mmol/L (22-30); CHLORIDE 103 mmol/L (98-107); GLUCOSE 111 mg/dL (75-110); POTASSIUM 4.6 mmol/L (3.6-5.0); TOTAL PROTEIN 7.8 g/dL (6.3-8.2)
[2019-10-09 14:20] LABS: NT PRO BNP 21 pg/mL (<125)
[2019-10-09 14:23] LABS: TROPONIN I < 0.012 ng/mL
[2019-10-09] MEDS: MAGNESIUM SULFATE/D5W 1 GM/100 ML RTUPB IV PRN ×2 (14:34→15:56)
[2019-10-09] MEDS ORDERED: ALBUTEROL SULFATE 0.083% NEB 2.5 MG/3 ML AMPUL NEB ONE (16:03)
--- NOTE | 2019-10-09 16:10 | ER Document Report ---
ED General - General Chief Complaint: Shortness Of Breath Stated Complaint: ASTHMA EXACERBATION Time Seen by Provider: 10/09/19 11:23 Notes: 59-year-old male past medical history of asthma and pulmonary nodule presenting today with acute shortness of breath. States is been going on for approximately 2 to 3 months after he hung up drywall. He developed shortness of breath after this occurred. Since then he has had an increase in his shortness of breath. This has worsened in the last 2-3 days States that his daughter encouraged him to come to the emergency department as his symptoms have progressively gotten worse. He denies any chest pain, abdominal pain or additional symptoms at this time. Some expiratory wheeze and pain when he breathes. He has run out of his albuterol inhaler. He has seen his primary care for this issue but he has not had follow-up with a clinical assoc. TRAVEL OUTSIDE OF THE [place] IN LAST 30 DAYS: No - Related Data Allergies/Adverse Reactions: Penicillins Allergy (Severe, Verified 10/09/19 11:22) Seizures Past Medical History - Social History Smoking Status: Former Smoker Chew tobacco use (# tins/day): No Frequency of alcohol use: None Drug Abuse: None Family History: Reviewed & Not Pertinent Patient has homicidal ideation: No - Past Medical History Cardiac Medical History: Denies: Hx Coronary Artery Disease, Hx Heart Attack, Hx Hypertension Pulmonary Medical History: Reports: Hx Asthma Denies: Hx Bronchitis, Hx COPD, Hx Pneumonia Neurological Medical History: Denies: Hx Cerebrovascular Accident, Hx Seizures Renal/ Medical History: Denies: Hx Peritoneal Dialysis GI Medical History: Reports: Hx Crohn's Disease Musculoskeletal Medical History: Denies Hx Arthritis Past Surgical History: Reports: Hx Appendectomy, Hx Bowel Surgery, Hx Andressa cystectomy - Immunizations Immunizations up to date: Yes Hx Diphtheria, Pertussis, Tetanus Vaccination: No Review of Systems - Review of Systems Constitutional: No symptoms reported EENT: No symptoms reported Cardiovascular: No symptoms reported Respiratory: See HPI Gastrointestinal: No symptoms reported Genitourinary: No symptoms reported Male Genitourinary: No symptoms reported Musculoskeletal: No symptoms reported Skin: No symptoms reported Physical Exam - Vital signs Vitals: Temp Pulse Resp BP Pulse Ox 97.6 F 100 18 164/95 H 95 10/09/19 10:55 10/09/19 10:55 10/09/19 10:55 10/09/19 10:55 10/09/19 10:55 Interpretation: Hypertensive, Tachycardic - Notes Notes: Adult General: GENERAL: Alert, interacts well. No acute distress HEAD: Normocephalic, atraumatic EYES: Extraocular movements intact. ENT: Airway patent. Nares patent. NECK: Full range of motion. Supple. Trachea midline. No lymphadenopathy. LUNGS: Wheezes in bilateral lower lung byrne. HEART: Regular rate and rhythm. No murmurs, rubs or gallops. ABDOMEN: Soft, nontender. Nondistended. (-) [place] sign. Bowel sounds present in all 4 quadrants. No rebound, guarding or masses. GENITOURINARY: Deferred EXTREMITIES: Moves all 4 extremities spontaneously. No edema, normal radial and dorsal pedis pulses bilaterally. No cyanosis. BACK: No cervical, thoracic, lumbar midline tenderness. No saddle anesthesia, normal distal neurovascular exam. Moves all extremities with full range of motion. NEUROLOGICAL: Alert and oriented x3. Normal speech. Cranial nerves II through XII grossly intact. Strength 5/ 5 in all extremities. PSYCH: Normal affect, normal mood. SKIN: Warm, dry, normal turgor. No rashes or lesions noted. Course - Re-evaluation Re-evalutation: 10/09/19 16:11 Patient was reassessed. He has received 3 nebulizer treatments and Solu-Medrol and magnesium. He still reports shortness of breath. Continues to have left- sided wheezing in his lungs. I have ordered albuterol for this patient. If he continues to not improve will consider admission for this patient. He is not on oxygen at home. He is afebrile. Remains tachycardic and his oxygen sat is 95%. Chest x-ray shows a stable left lower nodule of 11 mm. Reevaluated the patient. He continues to be short of breath. States that he is now experiencing left upper chest pain. This has occurred after his first ekg since presenting to the ER. Will repeat ekg. 10/09/19 16:19 Second ekg shows sinus tachycardia. No St segment elevations or depressions. Discussed with patient that as he is still symptomatic, I recommend being admitted. Patient is in agreeance with plan. 10/09/19 19:[address] Kwong. He agrees to admission to regular floor. - Vital Signs Vital signs: Temp Pulse Resp BP Pulse Ox 97.6 F 112 H 18 142/75 H 93 10/09/19 21:11 10/09/19 21:11 10/09/19 21:11 10/09/19 21:11 10/09/19 21:11 - Laboratory Result Diagrams: 10/09/19 13:20 10/09/19 13:20 Laboratory results interpreted by me: 10/09/19 10/09/19 10/09/19 13:20 13:20 13:20 RBC 5.82 H RDW 14.3 H Glucose 111 H Hemoglobin A1c % 6.2 H Total Bilirubin 1.5 H ALT 52 H Triglycerides VLDL Cholesterol 10/09/19 17:10 RBC RDW Glucose Hemoglobin A1c % Total Bilirubin ALT Triglycerides 286 H VLDL Cholesterol 57.2 H - EKG Interpretation by Me Additional EKG results interpreted by me: 10/09/19 16:18 EKG shows sinus rhythm at 97. MO interval of 144 QTC of 412 Discharge - Discharge Clinical Impression: Asthma exacerbation Qualifiers: Asthma severity: severe Asthma persistence: persistent Qualified Code(s): J45.51 - Severe persistent asthma with (acute) exacerbation Condition: Stable Disposition: ADMITTED INPATIENT Admitting Provider: Varghese (Hospitalist) Unit Admitted: Medical Floor
[2019-10-09] MEDS ORDERED: PROMETHAZINE HCL INJ 25 MG/1 ML VIAL IV PRN (20:23)
[2019-10-09] MEDS ORDERED: OXYCODONE-ACETAMINOPHEN 5-325 MG TABLET PO PRN (20:23)
[2019-10-09] MEDS ORDERED: ONDANSETRON HCL INJ/PF 4 MG/2 ML SDV IV PRN (20:23)
[2019-10-09] MEDS ORDERED: MAGNESIUM HYDROXIDE SUSP 30 ML UDCUP PO PRN (20:23)
[2019-10-09] MEDS ORDERED: TEMAZEPAM 15 MG CAPSULE PO PRN (20:23)
[2019-10-09] MEDS ORDERED: ACETAMINOPHEN 325 MG TABLET PO PRN (20:23)
[2019-10-09] MEDS ORDERED: METOPROLOL TARTRATE PF/INJ 5 MG/5 ML SDV IV PRN (20:28)
[2019-10-09] MEDS ORDERED: HYDRALAZINE HCL INJ/PF 20 MG/1 ML SDV IV PRN (20:28)
--- NOTE | 2019-10-09 20:51 | PDOC H&P ---
History of Present Illness Admission Date/PCP: 10/09/19 19:57 LESIA LLANES, DAVI-C History of Present Illness: YARI AZUL is a 59 year old male past medical history of Crohn's disease, former smoker, recently diagnosed asthma and pulmonary nodule presenting to ED complaining of worsening shortness of breath for the last 2 weeks. Patient is stating he used to suffer from seasonal allergies but approximately 2 months ago when he was hanging drywall for his daughter's room, since then he has been more frequent shortness of breath. For the last 2 weeks he is having more dyspnea on exertion, more frequent wheezing, has had to use his rescue inhaler several times a day, has been waking up with shortness of breath nightly around 3-4 a.m. every night. He denies any previous hospitalization for asthma attack, he has never been intubated for his asthma, denies any recent travel, denies any exposure to anybody with upper respiratory symptoms, denies any fever, loss of smell, loss of taste, chest pain, nausea, vomiting, abdominal pain or constipation. Patient was just diagnosed with Crohn's disease and has been having chronic diarrhea however he was taken off of his steroids by his PCP and he was told that he does not have Crohn's disease. In ED he was treated for his acute asthma exacerbation however he was still noted to be tachypneic, tachycardic and having dyspnea on exertion. Hospitalist consulted for admission for overnight observation. Past Medical History Cardiac Medical History: Denies: Coronary Artery Disease, Myocardial Infarction, Hypertension Pulmonary Medical History: Reports: Asthma Denies: Bronchitis, Chronic Obstructive Pulmonary Disease (COPD), Pneumonia Neurological Medical History: Denies: Seizures GI Medical History: Reports: Crohn's Disease Musculoskeltal Medical History: Denies: Arthritis Hematology: Denies: Anemia Past Surgical History Past Surgical History: Reports: Appendectomy, Cholecystectomy Social History Smoking Status: Former Smoker Electronic Cigarette use?: No Frequency of Alcohol Use: Occasional Hx Recreational Drug Use: No Drugs: None Hx Prescription Drug Abuse: No Family History Family History: Reviewed & Not Pertinent Parental Family History Reviewed: Yes Children Family History Reviewed: Yes Sibling(s) Family History Reviewed.: Yes Medication/Allergy Home Medications: Ibuprofen 200 mg PO PRN PRN 12/24/18 Doxycycline Hyclate 100 mg PO BID #20 tablet. 09/05/19 Ipratropium/Albuterol Sulfate [Duoneb 3 ml Ampul] 3 ml NEB RTQ6 #60 vial.neb 09/05/19 Prednisone 10 mg PO ASDIR PRN 6 Days #1 tab.ds.pk 09/05/19 Levalbuterol HCl [Xopenex Neb 1.25 mg/3 ml Ampul] 1.25 mg NEB RTQ4HP PRN #30 vial.neb 09/19/19 Prednisone [Deltasone 20 mg Tablet] 20 mg PO DAILY #12 tablet 09/19/19 Allergies/Adverse Reactions: Penicillins Allergy (Severe, Verified 10/09/19 11:22) Seizures Review of Systems Review of Systems: as per hpi Physical Exam Vital Signs: Temp Pulse Resp BP Pulse Ox 98.1 F 100 19 143/79 H 95 10/09/19 20:01 10/09/19 10:55 10/09/19 20:01 10/09/19 20:01 10/09/19 20:01 Intake & Output 10/08/19 10/09/19 10/10/19 06:59 06:59 06:59 Intake Total 200 Balance 200 Weight 86.7 kg General appearance: PRESENT: no acute distress, obese, well-developed, well- nourished Head exam: PRESENT: atraumatic, normocephalic Respiratory exam: PRESENT: decreased breath sounds, prolonged expiratory phas, tachypnea. ABSENT: rales, rhonchi, wheezes Cardiovascular exam: PRESENT: RRR, tachycardia. ABSENT: diastolic murmur, rubs, systolic murmur GI/Abdominal exam: PRESENT: normal bowel sounds, soft. ABSENT: distended, guarding, mass, organolmegaly, rebound, tenderness Neurological exam: PRESENT: alert, awake, oriented to person, oriented to place, oriented to time, oriented to situation, CN II-XII grossly intact. ABSENT: motor sensory deficit Skin exam: PRESENT: dry, intact, warm. ABSENT: cyanosis, rash Results Laboratory Results: 10/09/19 13:20 10/09/19 13:20 10/09/19 10/09/19 13:20 13:20 WBC 10.0 RBC 5.82 H Hgb 17.0 Hct 48.4 MCV 83 MCH 29.1 MCHC 35.0 RDW 14.3 H Plt Count 193 Seg Neutrophils % 63.9 Sodium 137.6 Potassium 4.6 Chloride 103 Carbon Dioxide 26 Anion Gap 9 BUN 18 Creatinine 0.98 Est GFR ( Amer) > 60 Glucose 111 H Calcium 10.2 Total Bilirubin 1.5 H AST 26 Alkaline Phosphatase 77 Total Protein 7.8 Albumin 4.9 10/09/19 10/09/19 13:20 17:10 Troponin I < 0.012 < 0.012 NT-Pro-B Natriuret Pep 21 Impressions: Chest X-Ray 10/09/19 11:28 IMPRESSION: Stable left lower lobe pulmonary nodule measures about 11 mm. No other significant finding. Assessment and Plan - Diagnosis (1) Obesity Is this a current diagnosis for this admission?: Yes Plan: BMI 28. We will obtain TSH, lipid panel and screen for diabetes. Diet and lifestyle modification recommended. (2) Asthma exacerbation Qualifiers: Asthma severity: severe Asthma persistence: persistent Qualified Code(s): J45.51 - Severe persistent asthma with (acute) exacerbation Is this a current diagnosis for this admission?: Yes Plan: Severe persistent asthma. Patient has been using his rescue inhaler daily several times a day. And has been having asthma attack nightly every night for the last 2 weeks. Admit to floor, IV steroids, LABA, LABA, ICS, scheduled duo nebs, supplemental oxygen, incentive spirometry. Home medication is only albuterol rescue inhaler. Patient would need to be discharged on maintenance therapy and follow-up with lmonology for PFT. Patient will also benefit from proper inhaler usage education. (3) Crohn's colitis Qualifiers: Digestive disease complication type: without complication Qualified Code(s): K50.10 - Crohn's disease of large intestine without complications Is this a current diagnosis for this admission?: Yes Plan: As per patient he was diagnosed with Crohn's disease and was taking steroid however he was taken off of his steroids by his PCP as he was told he did not have Crohn's disease. Patient had colonoscopy in 2019 here at [facility] which was reported as unremarkable however no bowel biopsy was taken Patient still complaining of chronic persistent diarrhea. Monitor volume status, replace electrolytes. Outpatient PCP and gastroenterology follow-up. (4) Pulmonary nodule Is this a current diagnosis for this admission?: Yes Plan: Former smoker. Left lower lobe pulmonary nodule 11 mm. Stable as per x-ray report. Outpatient PCP and pulmonology follow-up.
[2019-10-09] MEDS: FAMOTIDINE 20 MG TABLET PO SCH (21:12)
[2019-10-09] MEDS: METHYLPREDNISOLONE INJ 40 MG/1 ML SDV IV SCH (21:20)
[2019-10-09] MEDS ORDERED: FLUTICASONE/VILANTEROL 100-25 MCG/DOSE IH ONE ×2 (21:24→22:30)
[2019-10-09 21:43] LABS: TRIGLYCERIDES 286 mg/dL (<150)
[2019-10-09 21:45] LABS: VLDL CHOLESTEROL 57.2 mg/dL (10-31)
[2019-10-09 21:53] LABS: DIRECT LDL 83 mg/dL (<100)
[2019-10-09] MEDS ORDERED: FLUTICASONE/UMECLIDIN/VILANTER 100-62.5-25 MCG/DOSE IH ONE (22:00)
--- NOTE | 2019-10-09 22:11 | EKG REPORT ---
SEVERITY:- NORMAL ECG - SINUS TACHYCARDIA : Confirmed by: Melany Gaviria MD 09-Oct-2019 22:09:57
--- NOTE | 2019-10-09 22:11 | EKG REPORT ---
SEVERITY:- NORMAL ECG - SINUS RHYTHM : Confirmed by: Melany Gaviria MD 09-Oct-2019 22:10:14
[2019-10-10] MEDS: IPRATROPIUM/ALBUTEROL 0.5-2.5 MG/3 ML AMPUL NEB PRN ×2 (02:25→23:50)
[2019-10-10] MEDS: METHYLPREDNISOLONE INJ 40 MG/1 ML SDV IV SCH ×4 (06:49→22:21)
[2019-10-10] MEDS: IPRATROPIUM/ALBUTEROL 0.5-2.5 MG/3 ML AMPUL NEB SCH ×3 (08:42→20:37)
[2019-10-10 09:00] LABS: ABSOLUTE LYMPHOCYTES (AUTO) 1.2 10^3/uL (0.5-4.7); ABSOLUTE MONOCYTES (AUTO) 0.5 10^3/uL (0.1-1.4); ABSOLUTE NEUT (AUTO) 16.6 10^3/uL (1.7-8.2); BASOPHILS % (AUTO) 0.2 % (0-2); HEMOGLOBIN 16.2 g/dL (13.5-17.0); LYMPHOCYTES % (AUTO) 6.4 % (13-45); MEAN CORPUSCULAR HEMOGLOBIN 28.6 pg (27.0-33.4); MEAN CORPUSCULAR HGB CONC 34.5 g/dL (32.0-36.0); MEAN CORPUSCULAR VOLUME 83 fl (80-97); MONOCYTES % (AUTO) 2.7 % (3-13); PLATELET COUNT 211 10^3/uL (150-450); RED BLOOD COUNT 5.67 10^6/uL (4.35-5.55); RED CELL DISTRIBUTION WIDTH 14.4 % (11.5-14.0); SEGMENTED NEUTROPHILS % (AUTO) 90.7 % (42-78); TOTAL CELLS COUNTED % (AUTO) 100 %; WHITE BLOOD COUNT 18.3 10^3/uL (4.0-10.5)
[2019-10-10 09:17] LABS: ALBUMIN 4.9 g/dL (3.5-5.0); ALKALINE PHOSPHATASE 78 U/L (38-126); ANION GAP 15 (5-19); ASPARTATE AMINO TRANSFERASE 23 U/L (17-59); BLOOD UREA NITROGEN 25 mg/dL (7-20); CALCIUM 10.1 mg/dL (8.4-10.2); CARBON DIOXIDE 19 mmol/L (22-30); CHLORIDE 101 mmol/L (98-107); GLUCOSE 243 mg/dL (75-110); POTASSIUM 4.6 mmol/L (3.6-5.0); TOTAL PROTEIN 7.8 g/dL (6.3-8.2)
[2019-10-10] MEDS: FLUTICASONE/VILANTEROL 100-25 MCG/DOSE IH SCH (09:20)
[2019-10-10] MEDS: ENOXAPARIN SODIUM INJ 40 MG/0.4 ML DISP.SYRIN SUBCUT SCH (09:20)
[2019-10-10] MEDS: FAMOTIDINE 20 MG TABLET PO SCH ×3 (09:29→23:14)
--- NOTE | 2019-10-10 09:49 | PDOC PROGRESS REPORT ---
Subjective Progress Note for:: 10/10/19 Subjective:: 59 year old male past medical history of Crohn's disease, former smoker, recently diagnosed asthma and pulmonary nodule presenting to ED complaining of worsening shortness of breath for the last 2 weeks. Patient is stating he used to suffer from seasonal allergies but approximately 2 months ago when he was hanging drywall for his daughter's room, since then he has been more frequent shortness of breath. For the last 2 weeks he is having more dyspnea on exertion, more frequent wheezing, has had to use his rescue inhaler several times a day, has been waking up with shortness of breath nightly around 3-4 a.m. every night. He denies any previous hospitalization for asthma attack, he has never been intubated for his asthma, denies any recent travel, denies any exposure to anybody with upper respiratory symptoms, denies any fever, loss of smell, loss of taste, chest pain, nausea, vomiting, abdominal pain or constipation. Patient was just diagnosed with Crohn's disease and has been having chronic diarrhea however he was taken off of his steroids by his PCP and he was told that he does not have Crohn's disease. In ED he was treated for his acute asthma exacerbation however he was still noted to be tachypneic, tachycardic and having dyspnea on exertion. Hospitalist consulted for admission for overnight observation. 10/10/[id number]-old male admitted with asthma exacerbation. On scheduled and as needed nebulizations. Also on Breo. Receiving incentive spirometry. No acute events since last admission. Patient is also on IV steroids. Afebrile. WBC count went up to 18,000 most likely secondary to IV steroids. Patient is willing to stay another night. He is planning to see senior credit officer as an outpatient. Reason For Visit: ASTHMA EXACERBATION Physical Exam Vital Signs: Temp Pulse Resp BP Pulse Ox 97.3 F 108 H 16 149/81 H 93 10/10/19 07:19 10/10/19 08:42 10/10/19 08:42 10/10/19 07:19 10/10/19 08:42 Intake & Output 10/09/19 10/10/19 10/11/19 06:59 06:59 06:59 Intake Total 1100 Balance 1100 Weight 85.6 kg General appearance: PRESENT: no acute distress, well-developed Head exam: PRESENT: atraumatic Eye exam: PRESENT: PERRLA Mouth exam: PRESENT: moist, tongue midline Teeth exam: PRESENT: poor dentation Neck exam: ABSENT: carotid bruit, JVD, lymphadenopathy, thyromegaly Respiratory exam: PRESENT: decreased breath sounds, tachypnea. ABSENT: wheezes Cardiovascular exam: PRESENT: RRR. ABSENT: diastolic murmur, rubs, systolic murmur Pulses: PRESENT: normal dorsalis pedis pul GI/Abdominal exam: PRESENT: normal bowel sounds, soft. ABSENT: distended, guarding, mass, organolmegaly, rebound, tenderness Rectal exam: PRESENT: deferred Extremities exam: PRESENT: full ROM. ABSENT: calf tenderness, clubbing, pedal edema Neurological exam: PRESENT: alert, awake, oriented to person, oriented to place, oriented to time, oriented to situation, CN II-XII grossly intact. ABSENT: motor sensory deficit Psychiatric exam: PRESENT: appropriate affect, normal mood. ABSENT: homicidal ideation, suicidal ideation Results Laboratory Results: 10/10/19 07:53 10/10/19 07:53 10/09/19 10/09/19 10/09/19 13:20 13:20 17:10 WBC 10.0 RBC 5.82 H Hgb 17.0 Hct 48.4 MCV 83 MCH 29.1 MCHC 35.0 RDW 14.3 H Plt Count 193 Seg Neutrophils % 63.9 Sodium 137.6 Potassium 4.6 Chloride 103 Carbon Dioxide 26 Anion Gap 9 BUN 18 Creatinine 0.98 Est GFR ( Amer) > 60 Glucose 111 H Calcium 10.2 Magnesium Total Bilirubin 1.5 H AST 26 Alkaline Phosphatase 77 Total Protein 7.8 Albumin 4.9 Triglycerides 286 H Cholesterol 183.40 LDL Cholesterol Direct 83 VLDL Cholesterol 57.2 H HDL Cholesterol 47 TSH 10/09/19 10/10/19 10/10/19 17:10 07:53 07:53 WBC 18.3 H RBC 5.67 H Hgb 16.2 Hct 47.0 MCV 83 MCH 28.6 MCHC 34.5 RDW 14.4 H Plt Count 211 Seg Neutrophils % 90.7 H Sodium 135.0 L Potassium 4.6 Chloride 101 Carbon Dioxide 19 L Anion Gap 15 BUN 25 H Creatinine 0.92 Est GFR ( Amer) > 60 Glucose 243 H Calcium 10.1 Magnesium 2.3 Total Bilirubin 1.0 AST 23 Alkaline Phosphatase 78 Total Protein 7.8 Albumin 4.9 Triglycerides Cholesterol LDL Cholesterol Direct VLDL Cholesterol HDL Cholesterol TSH 2.89 10/09/19 10/09/19 13:20 17:10 Troponin I < 0.012 < 0.012 NT-Pro-B Natriuret Pep 21 Impressions: Chest X-Ray 10/09/19 11:28 IMPRESSION: Stable left lower lobe pulmonary nodule measures about 11 mm. No other significant finding. Assessment and Plan - Diagnosis (1) Asthma exacerbation Qualifiers: Asthma severity: severe Asthma persistence: persistent Qualified Code(s): J45.51 - Severe persistent asthma with (acute) exacerbation Is this a current diagnosis for this admission?: Yes Plan: Severe persistent asthma. Patient has been using his rescue inhaler daily several times a day. And has been having asthma attack nightly every night for the last 2 weeks. Admit to floor, IV steroids, LABA, LABA, ICS, scheduled duo nebs, supplemental oxygen, incentive spirometry. Home medication is only albuterol rescue inhaler. Patient would need to be discharged on maintenance therapy and follow-up with pulmonology for PFT. Patient will also benefit from proper inhaler usage education. 10/10/2019-plan is to continue IV steroids, scheduled and as needed DuoNeb nebulizations, incentive spirometry, Breo. Patient receiving oxygen supplementations. Pulse ox is 96% on 2 L. X-rays negative for acute pathology CT chest was done 2 weeks ago negative for acute pathology except for pulmonary nodule. (2) Leukocytosis Qualifiers: Leukocytosis type: unspecified Qualified Code(s): D72.829 - Elevated white blood cell count, unspecified Is this a current diagnosis for this admission?: Yes Plan: 10/10/2019-WBC count is 18,000 most likely secondary to IV steroid use. (3) Crohn's colitis Qualifiers: Digestive disease complication type: without complication Qualified Code(s): K50.10 - Crohn's disease of large intestine without complications Is this a current diagnosis for this admission?: No Plan: As per patient he was diagnosed with Crohn's disease and was taking steroid however he was taken off of his steroids by his PCP as he was told he did not have Crohn's disease. Patient had colonoscopy in 2019 here at [facility] which was reported as unremarkable however no bowel biopsy was taken Patient still complaining of chronic persistent diarrhea. Monitor volume status, replace electrolytes. Outpatient PCP and gastroenterology follow-up. (4) Pulmonary nodule Is this a current diagnosis for this admission?: No Plan: Former smoker. Left lower lobe pulmonary nodule 11 mm. Stable as per x-ray report. Outpatient PCP and pulmonology follow-up.
[2019-10-10] MEDS ORDERED: FLUTICASONE/UMECLIDIN/VILANTER 100-62.5-25 MCG/DOSE IH SCH ×2 (10:00)
[2019-10-10] MEDS ORDERED: PREDNISONE 20 MG TABLET PO ONE (22:22)
[2019-10-11] MEDS: IPRATROPIUM/ALBUTEROL 0.5-2.5 MG/3 ML AMPUL NEB SCH ×3 (08:21→20:34)
[2019-10-11] MEDS: FAMOTIDINE 20 MG TABLET PO SCH ×2 (09:22→21:02)
[2019-10-11] MEDS: ENOXAPARIN SODIUM INJ 40 MG/0.4 ML DISP.SYRIN SUBCUT SCH (09:22)
[2019-10-11] MEDS: FLUTICASONE/VILANTEROL 100-25 MCG/DOSE IH SCH (09:23)
[2019-10-11] MEDS ORDERED: MAG HYDROX/AL HYDROX/SIMETH SUSP 30 ML UDCUP PO PRN (09:32)
--- NOTE | 2019-10-11 09:35 | PDOC PROGRESS REPORT ---
Subjective Progress Note for:: 10/11/19 Subjective:: 59 year old male past medical history of Crohn's disease, former smoker, recently diagnosed asthma and pulmonary nodule presenting to ED complaining of worsening shortness of breath for the last 2 weeks. Patient is stating he used to suffer from seasonal allergies but approximately 2 months ago when he was hanging drywall for his daughter's room, since then he has been more frequent shortness of breath. For the last 2 weeks he is having more dyspnea on exertion, more frequent wheezing, has had to use his rescue inhaler several times a day, has been waking up with shortness of breath nightly around 3-4 a.m. every night. He denies any previous hospitalization for asthma attack, he has never been intubated for his asthma, denies any recent travel, denies any exposure to anybody with upper respiratory symptoms, denies any fever, loss of smell, loss of taste, chest pain, nausea, vomiting, abdominal pain or constipation. Patient was just diagnosed with Crohn's disease and has been having chronic diarrhea however he was taken off of his steroids by his PCP and he was told that he does not have Crohn's disease. In ED he was treated for his acute asthma exacerbation however he was still noted to be tachypneic, tachycardic and having dyspnea on exertion. Hospitalist consulted for admission for overnight observation. 10/10/[id number]-bnde-old male admitted with asthma exacerbation. On scheduled and as needed nebulizations. Also on Breo. Receiving incentive spirometry. No acute events since last admission. Patient is also on IV steroids. Afebrile. WBC count went up to 18,000 most likely secondary to IV steroids. Patient is willing to stay another night. He is planning to see stranding machine operator helper as an outpatient. 10/11/2019-patient is complaining of tightness in the chest. Complaining of increasing tightness and taking deep breaths. As per him he is not comfortable in going home today. Patient is specifically mentioning discomfort along the mid sternum with complaints suggestive of GERD. Reason For Visit: ASTHMA EXACERBATION Physical Exam Vital Signs: Temp Pulse Resp BP Pulse Ox 97.4 F 96 15 164/90 H 95 10/11/19 07:54 10/11/19 08:21 10/11/19 08:21 10/11/19 07:54 10/11/19 08:21 Intake & Output 10/10/19 10/11/19 10/12/19 06:59 06:59 06:59 Intake Total 1100 1450 Balance 1100 1450 Weight 85.6 kg 85.6 kg General appearance: PRESENT: no acute distress, well-developed Head exam: PRESENT: atraumatic Eye exam: PRESENT: PERRLA Mouth exam: PRESENT: moist, tongue midline Teeth exam: PRESENT: poor dentation Neck exam: ABSENT: carotid bruit, JVD, lymphadenopathy, thyromegaly Respiratory exam: PRESENT: decreased breath sounds Cardiovascular exam: PRESENT: RRR. ABSENT: diastolic murmur, rubs, systolic murmur GI/Abdominal exam: PRESENT: normal bowel sounds, soft. ABSENT: distended, guarding, mass, organolmegaly, rebound, tenderness Rectal exam: PRESENT: deferred Extremities exam: PRESENT: full ROM. ABSENT: calf tenderness, clubbing, pedal edema Neurological exam: PRESENT: alert, awake, oriented to person, oriented to place, oriented to time, oriented to situation, CN II-XII grossly intact. ABSENT: motor sensory deficit Psychiatric exam: PRESENT: appropriate affect, normal mood. ABSENT: homicidal ideation, suicidal ideation Results Laboratory Results: 10/10/19 07:53 10/10/19 07:53 10/09/19 10/09/19 13:20 17:10 Troponin I < 0.012 < 0.012 NT-Pro-B Natriuret Pep 21 Impressions: Chest X-Ray 10/09/19 11:28 IMPRESSION: Stable left lower lobe pulmonary nodule measures about 11 mm. No other significant finding. Assessment and Plan - Diagnosis (1) Asthma exacerbation Qualifiers: Asthma severity: severe Asthma persistence: persistent Qualified Code(s): J45.51 - Severe persistent asthma with (acute) exacerbation Is this a current diagnosis for this admission?: Yes Plan: Severe persistent asthma. Patient has been using his rescue inhaler daily several times a day. And has been having asthma attack nightly every night for the last 2 weeks. Admit to floor, IV steroids, LABA, LABA, ICS, scheduled duo nebs, supplemental oxygen, incentive spirometry. Home medication is only albuterol rescue inhaler. Patient would need to be discharged on maintenance therapy and follow-up with pulmonology for PFT. Patient will also benefit from proper inhaler usage education. 10/10/2019-plan is to continue IV steroids, scheduled and as needed DuoNeb nebulizations, incentive spirometry, Breo. Patient receiving oxygen supplementations. Pulse ox is 96% on 2 L. X-rays negative for acute pathology CT chest was done 2 weeks ago negative for acute pathology except for pulmonary nodule. 10/11/2019-patient is still complaining of quality in using incentive spirometry. Complaining of chest tightness. Chest tightness is worsening with a deep breathes. Blunting of discomfort along the sternum suggestive of GERD. Is to continue p.o. prednisone, scheduled as needed nebulizations and Breo. To continue incentive spirometry. (2) Leukocytosis Qualifiers: Leukocytosis type: unspecified Qualified Code(s): D72.829 - Elevated white blood cell count, unspecified Is this a current diagnosis for this admission?: Yes Plan: 10/10/2019-WBC count is 18,000 most likely secondary to IV steroid use. 10/11/2019-latest WBC count is 18,000 , pt on steroids. To repeat labs with tomorrow. (3) Crohn's colitis Qualifiers: Digestive disease complication type: without complication Qualified Code(s): K50.10 - Crohn's disease of large intestine without complications Is this a current diagnosis for this admission?: No Plan: As per patient he was diagnosed with Crohn's disease and was taking steroid however he was taken off of his steroids by his PCP as he was told he did not have Crohn's disease. Patient had colonoscopy in 2019 here at [facility] which was reported as unremarkable however no bowel biopsy was taken Patient still complaining of chronic persistent diarrhea. Monitor volume status, replace electrolytes. Outpatient PCP and gastroenterology follow-up. (4) Pulmonary nodule Is this a current diagnosis for this admission?: No Plan: Former smoker. Left lower lobe pulmonary nodule 11 mm. Stable as per x-ray report. Outpatient PCP and pulmonology follow-up.
[2019-10-11] MEDS ORDERED: PREDNISONE 20 MG TABLET PO SCH (10:00)
[2019-10-11] MEDS: PREDNISONE 20 MG TABLET PO SCH ×2 (10:06→17:37)
[2019-10-11] MEDS: CALCIUM CARBONATE 500 MG TAB.CHEW PO SCH ×4 (11:56→21:03)
--- NOTE | 2019-10-11 13:33 | RADIOLOGY REPORT (SQ) ---
EXAM DESCRIPTION: CT CHEST WITHOUT IMAGES COMPLETED DATE/TIME: 10/11/2019 10:04 am REASON FOR STUDY: shortness of breath COMPARISON: CT chest 09/05/2019 CT abdomen pelvis 12/01/2018 TECHNIQUE: CT scan performed of the chest without intravenous contrast. Images reviewed with lung, soft tissue and bone windows. Reconstructed coronal and sagittal MPR images reviewed. All images st ored on PACS. All CT scanners at this facility use dose modulation, iterative reconstruction, and/or weight based d osing when appropriate to reduce radiation dose to as low as reasonably achievable (ALARA). [facility]: Dose Right [facility]: CareDose [facility]: Dose Right [facility]: Teradose 4D [facility]: Smart Your Survival RADIATION DOSE: CT Rad equipment meets quality standard of care and radiation dose reduction techniq ues were employed. CTDIvol: 9.1 mGy. DLP: 334 mGy-cm. mGy. LIMITATIONS: No technical limitations. FINDINGS: LUNGS AND PLEURA: In the posterior aspect right lower lobe, two peripheral wedge-shaped ar eas of airspace disease are present best shown on sagittal image 38, axial image 31 and axial image 4 3. These could represent tiny pulmonary infarcts. Atelectasis is possible. Pneumonia is considered less likely. No pleural effusion. No pneumothorax. No fluffy perihilar pulmonary edema. No findings worrisome f or interstitial pulmonary edema. 13 mm smooth round noncalcified nodule just above the left hemidiaphragm is unchanged from CT abdomen pelvis 12/01/2018. HILAR AND MEDIASTINAL STRUCTURES: No identified masses or abnormal nodes. No obvious aneurysm. HEART AND VASCULAR STRUCTURES: No aneurysm. No pericardial effusion. UPPER ABDOMEN: Fatty liver. Post cholecystectomy. THYROID AND OTHER SOFT TISSUES: No masses. No adenopathy. BONES: No significant finding. HARDWARE: None in the chest. OTHER: No other significant findings. IMPRESSION: Bandlike atelectasis versus pulmonary infarcts in the right lower lobe. Stable 13 mm smooth round nodule just above the left hemidiaphragm, unchanged from 12/01/2018 TECHNICAL DOCUMENTATION: JOB ID: [id number] Quality ID # [id number]: Final reports with documentation of one or more dose reduction techniques (e.g., Au tomated exposure control, adjustment of the mA and/or kV according to patient size, use of iterative reconstruction technique) 2010 [employer]- All Rights Reserved Reading location - IP/workstation name: [email or web address]
[2019-10-12 06:57] LABS: ABSOLUTE LYMPHOCYTES (AUTO) 2.3 10^3/uL (0.5-4.7); ABSOLUTE MONOCYTES (AUTO) 0.8 10^3/uL (0.1-1.4); ABSOLUTE NEUT (AUTO) 10.9 10^3/uL (1.7-8.2); BASOPHILS % (AUTO) 0.3 % (0-2); EOSINOPHILS % (AUTO) 0.2 % (0-6); HEMATOCRIT 45.4 % (37.9-51.0); HEMOGLOBIN 15.5 g/dL (13.5-17.0); LYMPHOCYTES % (AUTO) 16.4 % (13-45); MEAN CORPUSCULAR HEMOGLOBIN 28.6 pg (27.0-33.4); MEAN CORPUSCULAR HGB CONC 34.2 g/dL (32.0-36.0); MEAN CORPUSCULAR VOLUME 84 fl (80-97); MONOCYTES % (AUTO) 5.9 % (3-13); PLATELET COUNT 184 10^3/uL (150-450); RED BLOOD COUNT 5.42 10^6/uL (4.35-5.55); RED CELL DISTRIBUTION WIDTH 14.5 % (11.5-14.0); SEGMENTED NEUTROPHILS % (AUTO) 77.2 % (42-78); TOTAL CELLS COUNTED % (AUTO) 100 %; WHITE BLOOD COUNT 14.1 10^3/uL (4.0-10.5)
[2019-10-12 07:23] LABS: ALBUMIN 4.1 g/dL (3.5-5.0); ALKALINE PHOSPHATASE 70 U/L (38-126); ANION GAP 10 (5-19); ASPARTATE AMINO TRANSFERASE 18 U/L (17-59); BILIRUBIN,TOTAL 0.9 mg/dL (0.2-1.3); BLOOD UREA NITROGEN 24 mg/dL (7-20); CALCIUM 8.9 mg/dL (8.4-10.2); CARBON DIOXIDE 25 mmol/L (22-30); CHLORIDE 98 mmol/L (98-107); GLUCOSE 181 mg/dL (75-110); TOTAL PROTEIN 6.8 g/dL (6.3-8.2)
[2019-10-12] MEDS: CALCIUM CARBONATE 500 MG TAB.CHEW PO SCH ×4 (08:03→22:33)
[2019-10-12] MEDS: IPRATROPIUM/ALBUTEROL 0.5-2.5 MG/3 ML AMPUL NEB SCH ×3 (08:24→19:46)
--- NOTE | 2019-10-12 09:27 | RADIOLOGY REPORT (SQ) ---
EXAM DESCRIPTION: CTA CHEST IMAGES COMPLETED DATE/TIME: 10/12/2019 8:58 am REASON FOR STUDY: r/o PE COMPARISON: 10/11/2019 TECHNIQUE: CT scan of the chest performed using helical scanning technique with dynamic intravenous contrast injection. Images reviewed with lung, soft tissue and bone windows. Reconstructed coronal and sagittal MPR images reviewed. Additional 3 dimensional post-processing performed to develop Maximal Intensity Projection images (SD P). All images stored on PACS. All CT scanners at this facility use dose modulation, iterative reconstruction, and/or weight based d osing when appropriate to reduce radiation dose to as low as reasonably achievable (ALARA). [facility]: Dose Right [facility]: CareDose [facility]: Dose Right [facility]: Teradose 4D [facility]: Venturesity CONTRAST TYPE AND DOSE: contrast/concentration: Isovue 350.00 mmol/ml; Total Contrast Delivered: 57. 0 ml; Total Saline Delivered: 80.0 ml Contrast bolus adequate for pulmonary arteries and aorta. RENAL FUNCTION: Creatinine 0.85 RADIATION DOSE: CT Rad equipment meets quality standard of care and radiation dose reduction techniq ues were employed. CTDIvol: 5.6 - 12.5 mGy. DLP: 470 mGy-cm. . LIMITATIONS: None. FINDINGS: LUNGS AND PLEURA: Minimal linear right lower lobe consolidation, likely atelectasis. No p leural effusion or pneumothorax. Stable smooth round 13 mm left lower lobe pulmonary nodule above th e hemidiaphragm compared to 11/25 09/24. No additional Suspicious pulmonary masses. AORTA AND GREAT VESSELS: No aneurysm. Contrast bolus not optimized for the aorta. HEART: Trace pericardial effusion. Normal heart size. No significant coronary atherosclerosis. Nor mal right to left ventricular ratio. PULMONARY ARTERIES: No emboli visualized in the main pulmonary arteries or the segmental branches. HILAR AND MEDIASTINAL STRUCTURES: No identified masses or abnormal nodes. HARDWARE: None in the chest. UPPER ABDOMEN: No significant findings. Limited exam. THYROID AND OTHER SOFT TISSUES: No masses. No adenopathy. BONES: No acute or significant finding. 3D MIPS: Confirm above findings. OTHER: No other significant finding. IMPRESSION: 1. No evidence of pulmonary embolus. 2. Minimal right basilar linear opacity, likely atelectasis or scarring, stable. 3. Stable 13 mm left lower lobe pulmonary nodule. COMMENT: Quality ID # [id number]: Final reports with documentation of one or more dose reduction techniques (e.g., Automated exposure control, adjustment of the mA and/or kV according to patient size, use of iterative reconstruction technique) TECHNICAL DOCUMENTATION: JOB ID: [id number] 2010 [employer]- All Rights Reserved Reading location - IP/workstation name: [email or web address]
[2019-10-12] MEDS: FAMOTIDINE 20 MG TABLET PO SCH ×2 (10:15→22:33)
[2019-10-12] MEDS: PREDNISONE 20 MG TABLET PO SCH ×2 (10:15→17:29)
[2019-10-12] MEDS: FLUTICASONE/VILANTEROL 100-25 MCG/DOSE IH SCH (10:15)
[2019-10-12] MEDS: ENOXAPARIN SODIUM INJ 40 MG/0.4 ML DISP.SYRIN SUBCUT SCH (10:16)
--- NOTE | 2019-10-12 10:26 | PDOC PROGRESS REPORT ---
Subjective Progress Note for:: 10/12/19 Subjective:: 59 year old male past medical history of Crohn's disease, former smoker, recently diagnosed asthma and pulmonary nodule presenting to ED complaining of worsening shortness of breath for the last 2 weeks. Patient is stating he used to suffer from seasonal allergies but approximately 2 months ago when he was hanging drywall for his daughter's room, since then he has been more frequent shortness of breath. For the last 2 weeks he is having more dyspnea on exertion, more frequent wheezing, has had to use his rescue inhaler several times a day, has been waking up with shortness of breath nightly around 3-4 a.m. every night. He denies any previous hospitalization for asthma attack, he has never been intubated for his asthma, denies any recent travel, denies any exposure to anybody with upper respiratory symptoms, denies any fever, loss of smell, loss of taste, chest pain, nausea, vomiting, abdominal pain or constipation. Patient was just diagnosed with Crohn's disease and has been having chronic diarrhea however he was taken off of his steroids by his PCP and he was told that he does not have Crohn's disease. In ED he was treated for his acute asthma exacerbation however he was still noted to be tachypneic, tachycardic and having dyspnea on exertion. Hospitalist consulted for admission for overnight observation. 10/[id number]-pdwd-old male admitted with asthma exacerbation. On scheduled and as needed nebulizations. Also on Breo. Receiving incentive spirometry. No acute events since last admission. Patient is also on IV steroids. Afebrile. WBC count went up to 18,000 most likely secondary to IV steroids. Patient is willing to stay another night. He is planning to see machine ii cutter as an outpatient. 10/11/2019-patient is complaining of tightness in the chest. Complaining of increasing tightness and taking deep breaths. As per him he is not comfortable in going home today. Patient is specifically mentioning discomfort along the mid sternum with complaints suggestive of GERD. 10/12/2019-patient is still complaining of pressure-like pain across the chest. He describing as if somebody sitting on the chest. CT chest without contrast was done it indicates questionable pulmonary infarct. CT of the chest was done PE is ruled out. pulse is 98% on room air. Reason For Visit: ASTHMA EXACERBATION Physical Exam Vital Signs: Temp Pulse Resp BP Pulse Ox 97.6 F 81 18 129/79 H 96 10/11/19 23:09 10/12/19 08:24 10/12/19 08:24 10/11/19 23:09 10/12/19 08:24 Intake & Output 10/11/19 10/12/19 10/13/19 06:59 06:59 06:59 Intake Total 1450 1112 Balance 1450 1112 Weight 85.6 kg 85.6 kg General appearance: PRESENT: no acute distress, cooperative, well-developed Head exam: PRESENT: atraumatic Eye exam: PRESENT: PERRLA Ear exam: PRESENT: normal external ear exam Mouth exam: PRESENT: neck supple Teeth exam: PRESENT: poor dentation Neck exam: ABSENT: carotid bruit, JVD, lymphadenopathy, thyromegaly Respiratory exam: PRESENT: decreased breath sounds Cardiovascular exam: PRESENT: RRR. ABSENT: diastolic murmur, rubs, systolic murmur GI/Abdominal exam: PRESENT: normal bowel sounds, soft. ABSENT: distended, guarding, mass, organolmegaly, rebound, tenderness Rectal exam: PRESENT: deferred Extremities exam: PRESENT: full ROM. ABSENT: calf tenderness, clubbing, pedal edema Neurological exam: PRESENT: alert, awake, oriented to person, oriented to place, oriented to time, oriented to situation, CN II-XII grossly intact. ABSENT: motor sensory deficit Results Laboratory Results: 10/12/19 06:07 10/12/19 06:07 10/12/19 10/12/19 06:07 06:07 WBC 14.1 H RBC 5.42 Hgb 15.5 Hct 45.4 MCV 84 MCH 28.6 MCHC 34.2 RDW 14.5 H Plt Count 184 Seg Neutrophils % 77.2 Sodium 133.3 L Potassium 4.0 Chloride 98 Carbon Dioxide 25 Anion Gap 10 BUN 24 H Creatinine 0.85 Est GFR ( Amer) > 60 Glucose 181 H Calcium 8.9 Magnesium 2.4 H Total Bilirubin 0.9 AST 18 Alkaline Phosphatase 70 Total Protein 6.8 Albumin 4.1 10/09/19 10/09/19 13:20 17:10 Troponin I < 0.012 < 0.012 NT-Pro-B Natriuret Pep 21 Impressions: Chest X-Ray 10/09/19 11:28 IMPRESSION: Stable left lower lobe pulmonary nodule measures about 11 mm. No other significant finding. Chest CT 10/11/19 00:00 IMPRESSION: Bandlike atelectasis versus pulmonary infarcts in the right lower lobe. Stable 13 mm smooth round nodule just above the left hemidiaphragm, unchanged from 12/01/2018 Chest/Abdomen CTA 10/12/19 00:00 IMPRESSION: 1. No evidence of pulmonary embolus. 2. Minimal right basilar linear opacity, likely atelectasis or scarring, stable. 3. Stable 13 mm left lower lobe pulmonary nodule. Assessment and Plan - Diagnosis (1) Asthma exacerbation Qualifiers: Asthma severity: severe Asthma persistence: persistent Qualified Code(s): J45.51 - Severe persistent asthma with (acute) exacerbation Is this a current diagnosis for this admission?: Yes Plan: Severe persistent asthma. Patient has been using his rescue inhaler daily several times a day. And has been having asthma attack nightly every night for the last 2 weeks. Admit to floor, IV steroids, LABA, LABA, ICS, scheduled duo nebs, supplemental oxygen, incentive spirometry. Home medication is only albuterol rescue inhaler. Patient would need to be discharged on maintenance therapy and follow-up with pulmonology for PFT. Patient will also benefit from proper inhaler usage education. 10/10/2019-plan is to continue IV steroids, scheduled and as needed DuoNeb n ebulizations, incentive spirometry, Breo. Patient receiving oxygen supplementations. Pulse ox is 96% on 2 L. X-rays negative for acute pathology CT chest was done 2 weeks ago negative for acute pathology except for pulmonary nodule. 10/11/2019-patient is still complaining of quality in using incentive spirometry. Complaining of chest tightness. Chest tightness is worsening with a deep breathes. Blunting of discomfort along the sternum suggestive of GERD. Is to continue p.o. prednisone, scheduled as needed nebulizations and Breo. To continue incentive spirometry. 10/12/2019-patient is still complaining of pressure-like chest pain like a pressing pain across the chest. Also complains of shortness of breath with activity. CT of the chest without contrast CT of the chest with contrast negative for acute pathology. Stable pulmonary nodule seen. Patient is expressing desire to stay at least another day. (2) Leukocytosis Qualifiers: Leukocytosis type: unspecified Qualified Code(s): D72.829 - Elevated white blood cell count, unspecified Is this a current diagnosis for this admission?: Yes Plan: 10/10/2019-WBC count is 18,000 most likely secondary to IV steroid use. 10/11/2019-latest WBC count is 18,000 , pt on steroids. To repeat labs with tomorrow. 10/12/2019-WBC count is 14,000. Improving. Patient is presently on prednisone 10 mg twice a day. (3) Crohn's colitis Qualifiers: Digestive disease complication type: without complication Qualified Code(s): K50.10 - Crohn's disease of large intestine without complications Is this a current diagnosis for this admission?: No Plan: As per patient he was diagnosed with Crohn's disease and was taking steroid however he was taken off of his steroids by his PCP as he was told he did not have Crohn's disease. Patient had colonoscopy in 2019 here at [facility] which was reported as unremarkable however no bowel biopsy was taken Patient still complaining of chronic persistent diarrhea. Monitor volume status, replace electrolytes. Outpatient PCP and gastroenterology follow-up. (4) Pulmonary nodule Is this a current diagnosis for this admission?: No Plan: Former smoker. Left lower lobe pulmonary nodule 11 mm. Stable as per x-ray report. Outpatient PCP and pulmonology follow-up. 10/12/2019-patient has a prior history of stent 13 mm pulmonary nodule. No change compared to CT scan done in November last year.
[2019-10-13] MEDS: IPRATROPIUM/ALBUTEROL 0.5-2.5 MG/3 ML AMPUL NEB SCH (08:27)
[2019-10-13] MEDS: CALCIUM CARBONATE 500 MG TAB.CHEW PO SCH (08:30)
[2019-10-13] MEDS: PREDNISONE 20 MG TABLET PO SCH (09:57)
[2019-10-13] MEDS: FLUTICASONE/VILANTEROL 100-25 MCG/DOSE IH SCH (09:57)
[2019-10-13] MEDS: FAMOTIDINE 20 MG TABLET PO SCH (09:58)
[2019-10-13] MEDS: ENOXAPARIN SODIUM INJ 40 MG/0.4 ML DISP.SYRIN SUBCUT SCH (09:59)
[2019-10-13 10:11] VITALS: BP 145/66
--- NOTE | 2019-10-13 10:14 | PDOC DISCHARGE SUMMARY ---
Impression - Admit/DC Date/PCP Admission Date/Primary Care Provider: 10/09/19 19:57 LESIA LLANES, DAVI-C Discharge Date: 10/13/19 - Discharge Diagnosis (1) Asthma exacerbation Is this a current diagnosis for this admission?: Yes (2) Leukocytosis Is this a current diagnosis for this admission?: Yes (3) Crohn's colitis Is this a current diagnosis for this admission?: No (4) Pulmonary nodule Is this a current diagnosis for this admission?: No - Assessment Summary: (1) Asthma exacerbation Qualifiers: Asthma severity: severe Asthma persistence: persistent Qualified Code(s): J45.51 - Severe persistent asthma with (acute) exacerbation Is this a current diagnosis for this admission?: Yes Plan: Severe persistent asthma. Patient has been using his rescue inhaler daily several times a day. And has been having asthma attack nightly every night for the last 2 weeks. Admit to floor, IV steroids, LABA, LABA, ICS, scheduled duo nebs, supplemental oxygen, incentive spirometry. Home medication is only albuterol rescue inhaler. Patient would need to be discharged on maintenance therapy and follow-up with pulmonology for PFT. Patient will also benefit from proper inhaler usage education. 10/10/2019-plan is to continue IV steroids, scheduled and as needed DuoNeb nebulizations, incentive spirometry, Breo. Patient receiving oxygen supplementations. Pulse ox is 96% on 2 L. X-rays negative for acute pathology CT chest was done 2 weeks ago negative for acute pathology except for pulmonary nodule. 10/11/2019-patient is still complaining of quality in using incentive spirometry. Complaining of chest tightness. Chest tightness is worsening with a deep breathes. Blunting of discomfort along the sternum suggestive of GERD. Is to continue p.o. prednisone, scheduled as needed nebulizations and Breo. To continue incentive spirometry. 10/12/2019-patient is still complaining of pressure-like chest pain like a pressing pain across the chest. Also complains of shortness of breath with activity. CT of the chest without contrast CT of the chest with contrast negative for acute pathology. Stable pulmonary nodule seen. Patient is expressing desire to stay at least another day. 10/13/2019-patient admitted with shortness of breath, asthma exacerbation. Received Solu-Medrol followed by p.o. prednisone, scheduled and as needed nebulizations. CTA of the chest is negative for pulmonary embolism. Negative for pneumonia. Pulse ox today is 96% patient is advised to follow-up with student services coordinator as an outpatient in 1 week time. Prescription for albuterol nebulizer solution and prednisone at this time. (2) Leukocytosis Qualifiers: Leukocytosis type: unspecified Qualified Code(s): D72.829 - Elevated white blood cell count, unspecified Is this a current diagnosis for this admission?: Yes Plan: 10/10/2019-WBC count is 18,000 most likely secondary to IV steroid use. 10/11/2019-latest WBC count is 18,000 , pt on steroids. To repeat labs with tomorrow. 10/12/2019-WBC count is 14,000. Improving. Patient is presently on prednisone 10 mg twice a day. 10/13/2019-WBC count is improving. pt is afebrile vital signs are stable. (3) Crohn's colitis Qualifiers: Digestive disease complication type: without complication Qualified Code(s): K50.10 - Crohn's disease of large intestine without complications Is this a current diagnosis for this admission?: No Plan: As per patient he was diagnosed with Crohn's disease and was taking steroid however he was taken off of his steroids by his PCP as he was told he did not have Crohn's disease. Patient had colonoscopy in 2019 here at [facility] which was reported as unremarkable however no bowel biopsy was taken Patient still complaining of chronic persistent diarrhea. Monitor volume status, replace electrolytes. Outpatient PCP and gastroenterology follow-up. 10/13/2019-patient history of Crohn's colitis denies any abdominal pain, diarrhea during the hospital stay. Patient is advised to follow-up with PCP as an outpatient. He also need to see a vocational rehabilitation supervisor. (4) Pulmonary nodule Is this a current diagnosis for this admission?: No Plan: Former smoker. Left lower lobe pulmonary nodule 11 mm. Stable as per x-ray report. Outpatient PCP and pulmonology follow-up. 10/12/2019-patient has a prior history of 13 mm pulmonary nodule. No change compared to CT scan done in November last year. 10/13/2019-CT chest indicates presence of 13 mm pulmonary nodule compared to previous CT scans last year stable in size. - Additional Information Discharge Activity: Activity As Tolerated Referrals: MERRY ARGUETA MD [COMMUNITY BASED STAFF] - (Office stated for patient to call office to set up appointment) LESIA LLANES FNP-C [Primary Care Provider] - Follow up as needed Prescriptions: Prednisone [Deltasone 20 mg Tablet] 10 mg PO BID 30 Days #60 tablet Albuterol Sulfate [Proventil 0.5% Neb 2.5 mg/0.5 ml Vial.neb] 2.5 mg NEB RTQ6HP PRN 30 Days #10 vial PRN Reason: Home Medications: Ipratropium/Albuterol Sulfate [Duoneb 3 ml Ampul] 3 ml NEB RTQ6 #60 vial.neb 09/05/19 Levalbuterol HCl [Xopenex Neb 1.25 mg/3 ml Ampul] 1.25 mg NEB RTQ4HP PRN #30 vial.neb 09/19/19 Albuterol Sulfate [Albuterol Sulfate Hfa] 2 puff PO Q4HP PRN 10/10/19 Albuterol Sulfate [Proventil 0.5% Neb 2.5 mg/0.5 ml Vial.neb] 2.5 mg NEB RTQ6HP PRN 30 Days #10 vial 10/13/19 Prednisone [Deltasone 20 mg Tablet] 10 mg PO BID 30 Days #60 tablet 10/13/19 History of Present Illiness History of Present Illness: YARI AZUL is a 59 year old male 59 year old male past medical history of Crohn's disease, former smoker, recently diagnosed asthma and pulmonary nodule presenting to ED complaining of worsening shortness of breath for the last 2 weeks. Patient is stating he used to suffer from seasonal allergies but approximately 2 months ago when he was hanging drywall for his daughter's room, since then he has been more frequent shortness of breath. For the last 2 weeks he is having more dyspnea on exertion, more frequent wheezing, has had to use his rescue inhaler several times a day, has been waking up with shortness of breath nightly around 3-4 a.m. every night. He denies any previous hospitalization for asthma attack, he has never been intubated for his asthma, denies any recent travel, denies any exposure to anybody with upper respiratory symptoms, denies any fever, loss of smell, loss of taste, chest pain, nausea, vomiting, abdominal pain or constipation. Patient was just diagnosed with Crohn's disease and has been having chronic diarrhea however he was taken off of his steroids by his PCP and he was told that he does not have Crohn's disease. In ED he was treated for his acute asthma exacerbation however he was still noted to be tachypneic, tachycardic and having dyspnea on exertion. Hospitalist consulted for admission for overnight observation. Hospital Course Hospital Course: 59 year old male past medical history of Crohn's disease, former smoker, recently diagnosed asthma and pulmonary nodule presenting to ED complaining of worsening shortness of breath for the last 2 weeks. Patient is stating he used to suffer from seasonal allergies but approximately 2 months ago when he was hanging drywall for his daughter's room, since then he has been more frequent shortness of breath. For the last 2 weeks he is having more dyspnea on exertion, more frequent wheezing, has had to use his rescue inhaler several times a day, has been waking up with shortness of breath nightly around 3-4 a.m. every night. He denies any previous hospitalization for asthma attack, he has never been intubated for his asthma, denies any recent travel, denies any exposure to anybody with upper respiratory symptoms, denies any fever, loss of smell, loss of taste, chest pain, nausea, vomiting, abdominal pain or constipation. Patient was just diagnosed with Crohn's disease and has been having chronic diarrhea however he was taken off of his steroids by his PCP and he was told that he does not have Crohn's disease. In ED he was treated for his acute asthma exacerbation however he was still noted to be tachypneic, tachycardic and having dyspnea on exertion. Hospitalist consulted for admission for overnight observation. 10/[id number]-old male admitted with asthma exacerbation. On scheduled and as needed nebulizations. Also on Breo. Receiving incentive spirometry. No acute events since last admission. Patient is also on IV steroids. Afebrile. WBC count went up to 18,000 most likely secondary to IV steroids. Patient is willing to stay another night. He is planning to see student services coordinator as an outpatient. 10/11/2019-patient is complaining of tightness in the chest. Complaining of increasing tightness and taking deep breaths. As per him he is not comfortable in going home today. Patient is specifically mentioning discomfort along the mid sternum with complaints suggestive of GERD. 10/12/2019-patient is still complaining of pressure-like pain across the chest. He describing as if somebody sitting on the chest. CT chest without contrast was done it indicates questionable pulmonary infarct. CT of the chest was done PE is ruled out. pulse is 98% on room air. 10/13/2019-patient admitted with asthma exacerbation no acute in the last [address] chest without contrast was done indicates possible pulmonary infarcts CT of the chest was done which was negative for pulmonary embolism. Negative for pneumonia. Negative for COPD. pulse is 96% on 2 L patient is stable to go home today. Physical Exam Vital Signs: Temp Pulse Resp BP Pulse Ox 98.3 F 95 16 144/87 H 96 10/13/19 07:28 10/13/19 08:27 10/13/19 08:27 10/13/19 07:28 10/13/19 08:27 Intake & Output 10/12/19 10/13/19 10/14/19 06:59 06:59 06:59 Intake Total 1112 1496 Balance 1112 1496 Weight 85.6 kg 85.6 kg General appearance: PRESENT: no acute distress, well-developed Head exam: PRESENT: atraumatic Eye exam: PRESENT: PERRLA Ear exam: PRESENT: normal external ear exam Mouth exam: PRESENT: neck supple Teeth exam: PRESENT: poor dentation Neck exam: ABSENT: carotid bruit, JVD, lymphadenopathy, thyromegaly Respiratory exam: PRESENT: decreased breath sounds Cardiovascular exam: PRESENT: RRR. ABSENT: diastolic murmur, rubs, systolic murmur GI/Abdominal exam: PRESENT: normal bowel sounds, soft. ABSENT: distended, guarding, mass, organolmegaly, rebound, tenderness Rectal exam: PRESENT: deferred Extremities exam: PRESENT: full ROM. ABSENT: calf tenderness, clubbing, pedal edema Neurological exam: PRESENT: alert, awake, oriented to person, oriented to place, oriented to time, oriented to situation, CN II-XII grossly intact. ABSENT: motor sensory deficit Psychiatric exam: PRESENT: appropriate affect, normal mood. ABSENT: homicidal ideation, suicidal ideation Skin exam: PRESENT: dry, intact, warm. ABSENT: cyanosis, rash Results Laboratory Results: WBC 14.1 10^3/uL (4.0-10.5) H 10/12/19 06:07 RBC 5.42 10^6/uL (4.35-5.55) 10/12/19 06:07 Hgb 15.5 g/dL (13.5-17.0) 10/12/19 06:07 Hct 45.4 % (37.9-51.0) 10/12/19 06:07 MCV 84 fl (80-97) 10/12/19 06:07 MCH 28.6 pg (27.0-33.4) 10/12/19 06:07 MCHC 34.2 g/dL (32.0-36.0) 10/12/19 06:07 RDW 14.5 % (11.5-14.0) H 10/12/19 06:07 Plt Count 184 10^3/uL (150-450) 10/12/19 06:07 Lymph % (Auto) 16.4 % (13-45) 10/12/19 06:07 [place] % (Auto) 5.9 % (3-13) 10/12/19 06:07 Eos % (Auto) 0.2 % (0-6) 10/12/19 06:07 Baso % (Auto) 0.3 % (0-2) 10/12/19 06:07 Absolute Neuts (auto) 10.9 10^3/uL (1.7-8.2) H 10/12/19 06:07 Absolute Lymphs (auto) 2.3 10^3/uL (0.5-4.7) 10/12/19 06:07 Absolute Monos (auto) 0.8 10^3/uL (0.1-1.4) 10/12/19 06:07 Absolute Eos (auto) 0.0 10^3/uL (0.0-0.6) 10/12/19 06:07 Absolute Basos (auto) 0.0 10^3/uL (0.0-0.2) 10/12/19 06:07 Seg Neutrophils % 77.2 % (42-78) 10/12/19 06:07 Sodium 133.3 mmol/L (137-145) L 10/12/19 06:07 Potassium 4.0 mmol/L (3.6-5.0) 10/12/19 06:07 Chloride 98 mmol/L (98-107) 10/12/19 06:07 Carbon Dioxide 25 mmol/L (22-30) 10/12/19 06:07 Anion Gap 10 (5-19) 10/12/19 06:07 BUN 24 mg/dL (7-20) H 10/12/19 06:07 Creatinine 0.85 mg/dL (0.52-1.25) 10/12/19 06:07 Est GFR ( Amer) > 60 (>60) 10/12/19 06:07 Est GFR (MDRD) Non-Af > 60 (>60) 10/12/19 06:07 Glucose 181 mg/dL (75-110) H 10/12/19 06:07 Hemoglobin A1c % 6.2 % (4.7-6.0) H 10/09/19 13:20 Calcium 8.9 mg/dL (8.4-10.2) 10/12/19 06:07 Magnesium 2.4 mg/dL (1.6-2.3) H 10/12/19 06:07 Total Bilirubin 0.9 mg/dL (0.2-1.3) 10/12/19 06:07 Direct Bilirubin 0.0 mg/dL (0.0-0.4) 10/12/19 06:07 Neonat Total Bilirubin Not Reportable 10/12/19 06:07 Neonat Direct Bilirubin Not Reportable 10/12/19 06:07 Neonat Indirect Bili Not Reportable 10/12/19 06:07 AST 18 U/L (17-59) 10/12/19 06:07 ALT 26 U/L (<50) 10/12/19 06:07 Alkaline Phosphatase 70 U/L (38-126) 10/12/19 06:07 Troponin I < 0.012 ng/mL 10/09/19 17:10 NT-Pro-B Natriuret Pep 21 pg/mL (<125) 10/09/19 13:20 Total Protein 6.8 g/dL (6.3-8.2) 10/12/19 06:07 Albumin 4.1 g/dL (3.5-5.0) 10/12/19 06:07 Triglycerides 286 mg/dL (<150) H 10/09/19 17:10 Cholesterol 183.40 mg/dL (0-200) 10/09/19 17:10 LDL Cholesterol Direct 83 mg/dL (<100) 10/09/19 17:10 VLDL Cholesterol 57.2 mg/dL (10-31) H 10/09/19 17:10 HDL Cholesterol 47 mg/dL (>40) 10/09/19 17:10 TSH 2.89 uIU/mL (0.47-4.68) 10/09/19 17:10 10/09/19 10/09/19 13:20 17:10 Troponin I < 0.012 < 0.012 NT-Pro-B Natriuret Pep 21 Impressions: Chest X-Ray 10/09/19 11:28 IMPRESSION: Stable left lower lobe pulmonary nodule measures about 11 mm. No other significant finding. Chest CT 10/11/19 00:00 IMPRESSION: Bandlike atelectasis versus pulmonary infarcts in the right lower lobe. Stable 13 mm smooth round nodule just above the left hemidiaphragm, unchanged from 12/01/2018 Chest/Abdomen CTA 10/12/19 00:00 IMPRESSION: 1. No evidence of pulmonary embolus. 2. Minimal right basilar linear opacity, likely atelectasis or scarring, stable. 3. Stable 13 mm left lower lobe pulmonary nodule. Plan Time Spent: Greater than 30 Minutes Stroke Is this a Stroke Patient?: No Acute Heart Failure - Is this a Heart Failure Patient?: No
== END 2019-10-13 11:28 | disposition home or self-care (01) ==
LOC: ER 10:52 → EH 19:57 → INTOOBSV 19:57 → 4S 20:59
PROVIDERS: ADMIT Internal Medicine; ATTEND Internal Medicine
DX: J45.51 Severe persistent asthma with (acute) exacerbation (principal); D72.829 Elevated white blood cell count, unspecified; K50.10 Crohn's disease of large intestine without complications; R91.1 Solitary pulmonary nodule; E66.9 Obesity, unspecified; Z87.891 Personal history of nicotine dependence; Z90.49 Acquired absence of other specified parts of digestive tract; Z68.28 Body mass index [BMI] 28.0-28.9, adult
CPT/HCPCS: 93005; 94640 ×7; 99285; 96375; 96365; 96366; 36415 ×3; 83735 ×2; 84443; 85025 ×3; 80053 ×3; 84484; 83036; 80061; 83880; 71046; 71250; 71275; 94799 ×2; 93010; J2920 ×2; J2930; J1650 ×4; J3475; J7512 ×4; J3490; G0378

== ENCOUNTER 2020-01-31 00:57 | Emergency (ER) | payer SELFPAY ==
[2020-01-31] MEDS ORDERED: IPRATROPIUM/ALBUTEROL 0.5-2.5 MG/3 ML AMPUL NEB ONE ×2 (01:15→02:29)
[2020-01-31] MEDS ORDERED: METHYLPREDNISOLONE INJ 125 MG/2 ML SDV IV ONE (02:58)
[2020-01-31] MEDS ORDERED: ALBUTEROL SULFATE 0.083% NEB 2.5 MG/3 ML AMPUL NEB ONE (02:58)
[2020-01-31] MEDS ORDERED: MAGNESIUM SULFATE/D5W 1 GM/100 ML RTUPB IV ONE ×2 (03:01)
--- NOTE | 2020-01-31 03:03 | ER Document Report ---
ED Respiratory Problem - General Chief Complaint: Asthma Exacerbation Stated Complaint: SOB Time Seen by Provider: 01/31/20 02:34 Primary Care Provider: CODY WELLS PA-C [NO LOCAL MD] - Follow up as needed Mode of Arrival: Ambulatory Information source: Patient Notes: 59-year-old male with history of asthma presenting with complaints of possible asthma exacerbation. Patient reports he has had shortness of breath increasing for the last 3 days. He did have an episode of chest pain earlier associated with the shortness of breath. He denies any recent illness, fever or chills. He called his primary care provider's office to ask for medication for his neb ulizer he states they accidentally sent in an albuterol inhaler instead of nebulizer medications. TRAVEL OUTSIDE OF THE [place] IN LAST 30 DAYS: No - Related Data Allergies/Adverse Reactions: Penicillins Allergy (Severe, Verified 10/09/19 11:22) Seizures Past Medical History - General Information source: Patient - Social History Smoking Status: Former Smoker Family History: Reviewed & Not Pertinent - Past Medical History Cardiac Medical History: Reports: Hx Hypertension Pulmonary Medical History: Reports: Hx Asthma Denies: Hx Pneumonia Renal/ Medical History: Denies: Hx Peritoneal Dialysis GI Medical History: Reports: Hx Crohn's Disease Musculoskeletal Medical History: Denies Hx Arthritis Psychiatric Medical History: Denies: Hx Depression Past Surgical History: Reports: Hx Appendectomy, Hx Bowel Surgery, Hx Cholecystectomy - Immunizations Immunizations up to date: Yes Hx Diphtheria, Pertussis, Tetanus Vaccination: No Review of Systems - Review of Systems Respiratory: Short of breath, Wheezing -: Yes All other systems reviewed and negative Physical Exam - Vital signs Vitals: Temp Pulse Resp BP Pulse Ox 98.0 F 102 H 28 H 167/83 H 94 01/31/20 01:07 01/31/20 01:07 01/31/20 01:07 01/31/20 01:07 01/31/20 01:07 - Notes Notes: PHYSICAL EXAMINATION: GENERAL: Well-appearing, well-nourished and in no acute distress. HEAD: Atraumatic, normocephalic. EYES: Pupils equal round and reactive to light, extraocular movements intact, sclera anicteric, conjunctiva are normal. ENT: Nares patent, oropharynx clear without exudates. Moist mucous membranes. NECK: Normal range of motion, supple without lymphadenopathy LUNGS: Mildly increased work of breathing, expiratory wheezes bilaterally. HEART: Regular rate and rhythm without murmurs ABDOMEN: Soft, nontender, nondistended abdomen. No guarding, no rebound. No masses appreciated. Musculoskeletal: Normal range of motion, no pitting or edema. No cyanosis. NEUROLOGICAL: Cranial nerves grossly intact. Normal speech, normal gait. Normal sensory, motor exams PSYCH: Normal mood, normal affect. SKIN: Warm, Dry, normal turgor, no rashes or lesions noted. Course - Re-evaluation Re-evalutation: Patient presents with a mild exacerbation of their baseline asthma. Mild wheezing at time of presentation but vitals do not show significant hypoxemia or tachypnea. No retractions. Patient did clinically improve after receiving nebulizers here in the emergency department. Chest x-ray without evidence of an acute pneumonia. Patient able to ambulate without any respiratory distress. Based on patient's overall reassuring assessment, I believe they are stable for outpatient management with steroids. I do not suspect an acute alternative pathology at this time based on history and exam including acute pulmonary embolus, ACS, pneumothorax, or aortic dissection. At this time will discharge with return precautions and follow-up recommendations. Verbal discharge instructions given a the bedside and opportunity for questions given. Medication warnings reviewed. Patient is in agreement with this plan and has verbalized understanding of return precautions and the need for primary care follow-up in the next 24-72 hours. - Vital Signs Vital signs: Temp Pulse Resp BP Pulse Ox 98.7 F 102 H 18 130/74 H 93 01/31/20 07:00 01/31/20 01:07 01/31/20 07:00 01/31/20 07:47 01/31/20 07:00 - Laboratory Result Diagrams: 01/31/20 03:47 01/31/20 05:56 Laboratory results interpreted by me: 01/31/20 05:56 Sodium 136.0 L Glucose 185 H - Diagnostic Test Radiology reviewed: Image reviewed, Reports reviewed - EKG Interpretation by Me EKG shows normal: Sinus rhythm - rate 88, Naylor, Intervals, QRS Complexes, ST-T Waves Discharge - Discharge Clinical Impression: Asthma exacerbation Qualifiers: Asthma severity: moderate Asthma persistence: unspecified Qualified Code(s): J45.901 - Unspecified asthma with (acute) exacerbation Condition: Stable Disposition: HOME, SELF-CARE Instructions: Asthma ([facility]) Additional Instructions: Please take medication as prescribed. Keep the follow-up appointment you have with your primary care provider. I have printed off a copy of your labs, x-ray and EKG that were done here in the emergency department today hopefully this will help to avoid the stress from having to be redone. Return to the emergency department any new or worsening symptoms or worsening shortness of breath. Prescriptions: Prednisone [Deltasone 20 mg Tablet] 3 tab PO DAILY 5 Days #15 tablet Ipratropium/Albuterol Sulfate [Duoneb 3 ml Ampul] 3 ml NEB RTQ6HP PRN #30 vial.neb PRN Reason: Referrals: CODY WELLS PA-C [NO LOCAL MD] - Follow up as needed
[2020-01-31 03:57] LABS: HEMOGLOBIN 16.1 g/dL (13.5-17.0); MEAN CORPUSCULAR HEMOGLOBIN 28.9 pg (27.0-33.4); MEAN CORPUSCULAR HGB CONC 34.1 g/dL (32.0-36.0); MEAN CORPUSCULAR VOLUME 85 fl (80-97); RED BLOOD COUNT 5.55 10^6/uL (4.35-5.55); RED CELL DISTRIBUTION WIDTH 13.4 % (11.5-14.0); WHITE BLOOD COUNT 9.5 10^3/uL (4.0-10.5)
--- NOTE | 2020-01-31 04:09 | RADIOLOGY REPORT (SQ) ---
EXAM: XR Chest, 1 View EXAM DATE/TIME: 01/31/2020 03:36 CLINICAL HISTORY: The patient is 59 years old and is Male; SHORTNESS OF BREATH TECHNIQUE: Frontal view of the chest. COMPARISON: Chest CT from 10/12/2019, CT abdomen pelvis from 12/01/2018 FINDINGS: LUNGS: There is a 1.2 cm soft tissue density nodule within the left lower lobe, just above the diaphragm. This is unchanged compared to the prior studies. The lungs are otherwise clear. PLEURAL SPACE: Unremarkable. No pneumothorax. HEART: No significant enlargement of the cardiac silhouette. MEDIASTINUM: Unremarkable. BONES/JOINTS: Degenerative changes of the spine. No acute fracture visualized. IMPRESSION: 1. No acute findings visualized in the chest. 2. Left lower lobe pulmonary nodule measuring 1.2 cm. This is unchanged compared to the prior studies. For low-risk or high-risk patients consider a follow-up chest CT at 12-18 months. If unchanged, no further follow-up.
[2020-01-31 04:23] LABS: PLATELET COUNT 171 10^3/uL (150-450)
[2020-01-31 04:29] LABS: ABSOLUTE LYMPHOCYTES# (MANUAL) 2.3 10^3/uL (0.5-4.7); ABSOLUTE MONOCYTES # (MANUAL) 0.4 10^3/uL (0.1-1.4); BASOPHILS % (MANUAL) 1 % (0-2); EOSINOPHILS % (MANUAL) 3 % (0-6); LYMPHOCYTES % (MANUAL) 19 % (13-45); MONOCYTES % (MANUAL) 4 % (3-13); PLATELET CLUMPS PRESENT; PLATELET COMMENT ADEQUATE; SEGMENTED NEUTROPHILS % (MAN) 68 % (42-78); TOTAL CELLS COUNTED 100; TOXIC VACUOLATION PRESENT
[2020-01-31 04:32] LABS: OVALOCYTES SLIGHT
[2020-01-31 06:53] LABS: ALKALINE PHOSPHATASE 60 U/L (38-126); ANION GAP 7 (5-19); ASPARTATE AMINO TRANSFERASE 30 U/L (17-59); BILIRUBIN,DIRECT 0.4 mg/dL (0.0-0.4); BLOOD UREA NITROGEN 16 mg/dL (7-20); CALCIUM 8.4 mg/dL (8.4-10.2); CARBON DIOXIDE 24 mmol/L (22-30); CHLORIDE 105 mmol/L (98-107); GLUCOSE 185 mg/dL (75-110); POTASSIUM 3.7 mmol/L (3.6-5.0); TOTAL PROTEIN 6.4 g/dL (6.3-8.2)
[2020-01-31 07:03] LABS: NT PRO BNP 80 pg/mL (<125)
[2020-01-31 07:09] LABS: TROPONIN I < 0.012 ng/mL
[2020-01-31 07:48] VITALS: BP 130/74
--- NOTE | 2020-01-31 19:19 | EKG REPORT ---
SEVERITY:- NORMAL ECG - SINUS RHYTHM : Confirmed by: Jose Palacios MD 31-Jan-2020 19:18:39
== END 2020-01-31 07:47 | disposition home or self-care (01) ==
LOC: ER 00:57
DX: J45.901 Unspecified asthma with (acute) exacerbation (principal); Z88.0 Allergy status to penicillin; Z87.891 Personal history of nicotine dependence; I10 Essential (primary) hypertension
CPT/HCPCS: 93005; 94640 ×2; 99285; 96375; 96365; 36415; 85025; 80053; 84484; 83880; 71045; 93010; J2930; J3475; J7613

== ENCOUNTER 2020-02-22 18:20 | Observation (INO) | payer SELFPAY ==
[2020-02-22] MEDS ORDERED: METHYLPREDNISOLONE INJ 125 MG/2 ML SDV IV ONE (18:29)
[2020-02-22] MEDS ORDERED: IPRATROPIUM/ALBUTEROL 0.5-2.5 MG/3 ML AMPUL NEB ONE ×2 (18:29→22:59)
--- NOTE | 2020-02-22 18:31 | ER Document Report ---
ED Medical Screen (RME) - General Chief Complaint: Shortness Of Breath Stated Complaint: SHORTNESS OF BREATH Time Seen by Provider: 02/22/20 18:26 Primary Care Provider: MATTHEW KIRAN PA-C [Primary Care Provider] - Follow up as needed Mode of Arrival: Wheelchair Information source: Patient Notes: HPI; 59-year-old male past medical history significant for asthma presents to the emergency room complaining of shortness of breath that started last night. States he used his nebulizer felt better this morning. States he did another treatment before going to work. States he took his nebulizer to work with him today and had to use it multiple times along with his inhaler multiple times a day without relief. He denies any chest pain, no COVID-19 exposure. PE: Alert and oriented x3. Moderate distress noted. Lungs with rhonchi and wheezes no rales. Heart tachycardic without murmurs, rubs, gallops. I have greeted and performed a rapid initial assessment of this patient. A comprehensive ED assessment and evaluation of the patient, analysis of test results and completion of the medical decision making process will be conducted by additional ED providers. I have specifically instructed the patient or family members with the patient to immediately return to any nursing staff should anything change in the patient's condition or with their chief complaint. TRAVEL OUTSIDE OF THE [place] IN LAST 30 DAYS: No - Related Data Allergies/Adverse Reactions: Penicillins Allergy (Severe, Verified 10/09/19 11:22) Seizures Past Medical History - Past Medical History Cardiac Medical History: Reports: Hx Hypertension Denies: Hx Coronary Artery Disease, Hx Heart Attack Pulmonary Medical History: Reports: Hx Asthma Denies: Hx Bronchitis, Hx COPD, Hx Pneumonia Neurological Medical History: Denies: Hx Cerebrovascular Accident, Hx Seizures Renal/ Medical History: Denies: Hx Peritoneal Dialysis GI Medical History: Reports: Hx Crohn's Disease Musculoskeltal Medical History: Denies Hx Arthritis Psychiatric Medical History: Denies: Hx Depression Past Surgical History: Reports: Hx Appendectomy, Hx Bowel Surgery, Hx Cholecystectomy - Immunizations Immunizations up to date: Yes Hx Diphtheria, Pertussis, Tetanus Vaccination: No Physical Exam - Vital signs Vitals: Pulse Resp BP Pulse Ox 114 H 30 H 152/105 H 95 02/22/20 18:22 02/22/20 18:22 02/22/20 18:22 02/22/20 18:22 Course - Vital Signs Vital signs: Temp Pulse Resp BP Pulse Ox 114 H 30 H 152/105 H 95 02/22/20 18:22 02/22/20 18:22 02/22/20 18:22 02/22/20 18:22 Doctor's Discharge - Discharge Referrals: MATTHEW KIRAN, JASEN [Primary Care Provider] - Follow up as needed
[2020-02-22] MEDS: MAGNESIUM SULFATE/D5W 1 GM/100 ML RTUPB IV SCH ×2 (19:04→20:14)
--- NOTE | 2020-02-22 19:35 | RADIOLOGY REPORT (SQ) ---
EXAM DESCRIPTION: CHEST SINGLE VIEW IMAGES COMPLETED DATE/TIME: 02/22/2020 7:25 pm REASON FOR STUDY: asthma COMPARISON: 01/31/2020 EXAM PARAMETERS: NUMBER OF VIEWS: One view. TECHNIQUE: Single frontal radiographic view of the chest acquired. RADIATION DOSE: NA LIMITATIONS: None. FINDINGS: LUNGS AND PLEURA: The previously described left lower lobe pulmonary nodule is not identi fied on the current examination. No acute pulmonary consolidation. No pneumothorax or pleural effus ion. MEDIASTINUM AND HILAR STRUCTURES: No masses. Contour normal. HEART AND VASCULAR STRUCTURES: Heart normal in size. Normal vasculature. BONES: No acute findings. HARDWARE: None in the chest. OTHER: No other significant finding. IMPRESSION: 1. The previously demonstrated left lower lobe pulmonary nodule is not identified on e current study. 2. No acute pulmonary consolidation. TECHNICAL DOCUMENTATION: JOB ID: [id number] 2010 [employer]- All Rights Reserved Reading location - IP/workstation name: [email or web address]
--- NOTE | 2020-02-22 19:48 | ER Document Report ---
ED General - General Chief Complaint: Shortness Of Breath Stated Complaint: SHORTNESS OF BREATH Time Seen by Provider: 02/22/20 18:26 Primary Care Provider: MATTHEW KIRAN PA-C [Primary Care Provider] - Follow up as needed Mode of Arrival: Wheelchair TRAVEL OUTSIDE OF THE [place] IN LAST 30 DAYS: No - HPI Notes: Chief complaint: Shortness of breath and wheezing History of present illness: 59-year-old male with history of asthma previously hospitalized here most recently about 4 months ago for same now presents with 3- day history of increasing dyspnea, nonproductive cough and wheezes despite use of his usual medications. He denies fever chills. He denies sputum production. He denies any known exposure to COVID-19. He denies any loss of sense of taste or smell. He denies any travel outside the area. He quit smoking several years ago. Patient has never been intubated. He does not use oxygen at home. He is not currently on any long-term steroid therapy. Current primary care providers: MERRY ARGUETA MD [COMMUNITY BASED STAFF] LESIA LLANES FNP-C [Primary Care Provider] Home Medications: Ipratropium/Albuterol Sulfate [Duoneb 3 ml Ampul] 3 ml NEB RTQ6 #60 vial.neb 09/05/19 Levalbuterol HCl [Xopenex Neb 1.25 mg/3 ml Ampul] 1.25 mg NEB RTQ4HP PRN #30 vial.neb 09/19/19 Albuterol Sulfate [Albuterol Sulfate Hfa] 2 puff PO Q4HP PRN 10/10/19 Albuterol Sulfate [Proventil 0.5% Neb 2.5 mg/0.5 ml Vial.neb] 2.5 mg NEB RTQ6HP PRN 30 Days #10 vial 10/13/19 Allergic to penicillin - Related Data Allergies/Adverse Reactions: Penicillins Allergy (Severe, Verified 10/09/19 11:22) Seizures Past Medical History - General Information source: Patient, [facility] Records - Social History Smoking Status: Former Smoker Frequency of alcohol use: None Drug Abuse: None Family History: Reviewed & Not Pertinent - Past Medical History Cardiac Medical History: Reports: Hx Hypertension Denies: Hx Coronary Artery Disease, Hx Heart Attack Pulmonary Medical History: Reports: Hx Asthma Denies: Hx Bronchitis, Hx COPD, Hx Pneumonia Neurological Medical History: Denies: Hx Cerebrovascular Accident, Hx Seizures Endocrine Medical History: Denies: Hx Diabetes Mellitus Type 1, Hx Diabetes Mellitus Type 2 Renal/ Medical History: Reports: None. Denies: Hx Peritoneal Dialysis Malignancy Medical History: Reports None GI Medical History: Reports: Hx Crohn's Disease Musculoskeletal Medical History: Denies Hx Arthritis Psychiatric Medical History: Denies: Hx Depression Past Surgical History: Reports: Hx Appendectomy, Hx Bowel Surgery, Hx Cholecystectomy - Immunizations Immunizations up to date: Yes Hx Diphtheria, Pertussis, Tetanus Vaccination: No Review of Systems - Review of Systems Notes: Constitutional: Negative for fever. HENT: Negative for sore throat. Eyes: Negative for visual changes. Cardiovascular: Negative for chest pain. Respiratory: As per HPI. Gastrointestinal: Negative for abdominal pain, vomiting or diarrhea. Genitourinary: Negative for dysuria. Musculoskeletal: Negative for back pain. Skin: Negative for rash. Neurological: Negative for headaches, weakness or numbness. 10 point ROS negative except as marked above and in HPI. Physical Exam - Vital signs Vitals: Pulse Resp BP Pulse Ox 114 H 30 H 152/105 H 95 02/22/20 18:22 02/22/20 18:22 02/22/20 18:22 02/22/20 18:22 Interpretation: Tachycardic, Tachypneic Notes: GENERAL: Middle-age male who appears to be in mild to moderate respiratory distress. SKIN: Mildly diaphoretic. Good turgor no rashes. HEAD: Normocephalic atraumatic. EYES: PERRLA. EOMI. Conjunctivae and sclerae clear. EARS: CANALS AND TMS CLEAR. NOSE: CLEAR. MOUTH: Moist mucosa. Good dentition. No stridor or edema. No drooling. NECK: Supple. No masses or thyromegaly. No adenopathy. Carotids 2+ without bruits. No JVD. BACK: Symmetrical without tenderness. CHEST: Tachypneic with moderately labored respirations and mild use of accessory muscles. Breath sounds are symmetrical with diffuse wheezes bilaterally. HEART: Tachycardic regular rhythm. No murmur gallop or rub. ABDOMEN: Soft nontender without masses, organomegaly or rebound. Bowel sounds normally active. No bruits. GENITALIA: Deferred. EXTREMITIES: Mild clubbing of nailbeds. No edema. No calf tenderness. Cap re fill less than 1.5 seconds. Dorsalis pedis and posterior tibial pulses 3+ and symmetrical. NEUROLOGICAL: GCS 15. Alert and oriented x3. Fluent speech. Cranial nerves II through XII intact. Sensorimotor and cerebellar normal. Normal tone. PSYCHIATRIC: Slightly anxious affect. Course - Re-evaluation Re-evalutation: 02/22/20 20:53 Patient was given multiple nebulizer treatments with DuoNeb and also received IV Solu-Medrol and IV magnesium. Was placed on pill packer. He required 3 L of nasal O2 to remain above 95% O2 saturation by pulse oximetry. Arterial blood gas was requested and this unfortunately was a mixed venous specimen. His pH however is normal he is not retaining CO2. Clinically he looks better although he has some persistent faint wheezes bilaterally and still has an oxygen requirement. His chest x-ray does not show any focal infiltrate. He is afebrile here. His CBC and chemistry profile still pending. I think he will require admission. I have spoken with Dr. Marie regarding admission to the hospitalist service. - Vital Signs Vital signs: Temp Pulse Resp BP Pulse Ox 114 H 30 H 152/105 H 95 02/22/20 18:22 02/22/20 18:22 02/22/20 18:22 02/22/20 18:22 - Laboratory Laboratory results interpreted by sd: 02/22/20 20:25 ABG pO2 47.8 L ABG Total CO2 22.8 L ABG O2 Saturation 83.2 L - Diagnostic Test Radiology reviewed: Image reviewed, Reports reviewed Radiology results interpreted by me: 02/22/20 19:52 Chest X-Ray 02/22/20 18:47 IMPRESSION: 1. The previously demonstrated left lower lobe pulmonary nodule is not identified on the current study. 2. No acute pulmonary consolidation. Discharge - Discharge Clinical Impression: Asthma exacerbation Qualifiers: Asthma severity: moderate Asthma persistence: unspecified Qualified Code(s): J45.901 - Unspecified asthma with (acute) exacerbation Condition: Good Disposition: ADMITTED INPATIENT Admitting Provider: Cynthia Unit Admitted: Telemetry Referrals: MATTHEW KIRAN PA-C [Primary Care Provider] - Follow up as needed
[2020-02-22 20:42] LABS: ARTERIAL BLOOD BASE EXCESS -2.9 mmol/L; ARTERIAL BLOOD H2CO3 1.12 mmol/L (1.05-1.35); ARTERIAL BLOOD HCO3 21.7 mmol/L (20-24); ARTERIAL BLOOD O2 SATURATION 83.2 % (94-98); ARTERIAL BLOOD PCO2 37.3 mmHg (35-45); ARTERIAL BLOOD PH 7.38 (7.35-7.45); ARTERIAL BLOOD PO2 47.8 mmHg (80-100); ARTERIAL BLOOD TOTAL CO2 22.8 mmol/L (23-27)
[2020-02-22 20:43] LABS: ARTERIAL BLOOD FIO2 3L
[2020-02-22 21:23] LABS: ABSOLUTE BASOPHILS # (AUTO) 0.1 10^3/uL (0.0-0.2); ABSOLUTE EOSINOPHILS # (AUTO) 0.2 10^3/uL (0.0-0.6); ABSOLUTE LYMPHOCYTES (AUTO) 0.8 10^3/uL (0.5-4.7); ABSOLUTE MONOCYTES (AUTO) 0.2 10^3/uL (0.1-1.4); ABSOLUTE NEUT (AUTO) 9.1 10^3/uL (1.7-8.2); BASOPHILS % (AUTO) 0.5 % (0-2); EOSINOPHILS % (AUTO) 2.1 % (0-6); HEMOGLOBIN 15.5 g/dL (13.5-17.0); LYMPHOCYTES % (AUTO) 7.3 % (13-45); MEAN CORPUSCULAR HEMOGLOBIN 28.7 pg (27.0-33.4); MEAN CORPUSCULAR HGB CONC 34.5 g/dL (32.0-36.0); MEAN CORPUSCULAR VOLUME 83 fl (80-97); MONOCYTES % (AUTO) 1.7 % (3-13); PLATELET COUNT 216 10^3/uL (150-450); RED BLOOD COUNT 5.42 10^6/uL (4.35-5.55); RED CELL DISTRIBUTION WIDTH 13.6 % (11.5-14.0); SEGMENTED NEUTROPHILS % (AUTO) 88.4 % (42-78); TOTAL CELLS COUNTED % (AUTO) 100 %; WHITE BLOOD COUNT 10.3 10^3/uL (4.0-10.5)
[2020-02-22 21:41] LABS: ALBUMIN 4.3 g/dL (3.5-5.0); ALKALINE PHOSPHATASE 74 U/L (38-126); ANION GAP 9 (5-19); ASPARTATE AMINO TRANSFERASE 28 U/L (17-59); BILIRUBIN,DIRECT 0.1 mg/dL (0.0-0.4); BILIRUBIN,TOTAL 0.7 mg/dL (0.2-1.3); BLOOD UREA NITROGEN 13 mg/dL (7-20); CALCIUM 9.4 mg/dL (8.4-10.2); CARBON DIOXIDE 23 mmol/L (22-30); CHLORIDE 106 mmol/L (98-107); GLUCOSE 157 mg/dL (75-110); TOTAL PROTEIN 6.9 g/dL (6.3-8.2)
[2020-02-22] MEDS ORDERED: ONDANSETRON HCL INJ/PF 4 MG/2 ML SDV IV PRN (22:12)
[2020-02-22] MEDS ORDERED: ACETAMINOPHEN 325 MG TABLET PO PRN (22:12)
--- NOTE | 2020-02-22 22:20 | PDOC H&P ---
History of Present Illness Admission Date/PCP: 02/22/20 21:13 MATTHEW KIRAN Patient complains of: Shortness of breath History of Present Illness: YARI AZUL is a 59 year old male with a history of asthma presents with 3 days duration of worsening of shortness of breath. Patient reports that he usually gets acute exacerbations of his asthma whenever there is an acute weather change. The current episode started 3 days back and it progressively got worse despite using his rescue inhaler. Today while he was at work he became very short of breath and was unable to breathe and associated with this he also reports that he has wheezing. Patient denies any cough, fever, chills, chest pain, palpitation, dizziness, nausea, vomiting or any change in his bowel or urinary habits. He denies any recent sick contact history. His oxygen saturation on arrival to the ED was around 80% on room air he was given breathing treatment, steroid and magnesium sulfate after arrival and currently he is saturating in mid 90s with 3 L intranasal oxygen. Past Medical History Cardiac Medical History: Reports: Hypertension Denies: Coronary Artery Disease, Myocardial Infarction Pulmonary Medical History: Reports: Asthma Denies: Bronchitis, Chronic Obstructive Pulmonary Disease (COPD), Pneumonia Neurological Medical History: Denies: Seizures Endocrine Medical History: Denies: Diabetes Mellitus Type 1, Diabetes Mellitus Type 2 Renal/ Medical History: Reports: None Malignancy Medical History: Reports: None GI Medical History: Reports: Crohn's Disease Musculoskeltal Medical History: Denies: Arthritis Psychiatric Medical History: Denies: Depression Hematology: Denies: Anemia Past Surgical History Past Surgical History: Reports: Appendectomy, Cholecystectomy Social History Information Source: Patient Lives with: Family Smoking Status: Former Smoker Frequency of Alcohol Use: Occasional Hx Recreational Drug Use: No Drugs: None Hx Prescription Drug Abuse: No - Advance Directive Resuscitation Status: Full Code Family History Family History: Reviewed & Not Pertinent Parental Family History Reviewed: Yes Children Family History Reviewed: Yes Sibling(s) Family History Reviewed.: Yes Medication/Allergy Home Medications: Ipratropium/Albuterol Sulfate [Duoneb 3 ml Ampul] 3 ml NEB RTQ6 #60 vial.neb 09/05/19 Levalbuterol HCl [Xopenex Neb 1.25 mg/3 ml Ampul] 1.25 mg NEB RTQ4HP PRN #30 vial.neb 09/19/19 Albuterol Sulfate [Albuterol Sulfate Hfa] 2 puff PO Q4HP PRN 10/10/19 Albuterol Sulfate [Proventil 0.5% Neb 2.5 mg/0.5 ml Vial.neb] 2.5 mg NEB RTQ6HP PRN 30 Days #10 vial 10/13/19 Prednisone [Deltasone 20 mg Tablet] 10 mg PO BID 30 Days #60 tablet 10/13/19 Ipratropium/Albuterol Sulfate [Duoneb 3 ml Ampul] 3 ml NEB RTQ6HP PRN #30 vial.neb 01/31/20 Prednisone [Deltasone 20 mg Tablet] 3 tab PO DAILY 5 Days #15 tablet 01/31/20 Allergies/Adverse Reactions: Penicillins Allergy (Severe, Verified 10/09/19 11:22) Seizures Review of Systems Constitutional: ABSENT: chills, fever(s), headache(s), weight gain, weight loss Eyes: ABSENT: visual disturbances Ears: ABSENT: hearing changes Nose, Mouth, and Throat: ABSENT: headache(s), mouth pain, sore throat Cardiovascular: PRESENT: as per HPI Respiratory: PRESENT: as per HPI Gastrointestinal: ABSENT: abdominal pain, constipation, diarrhea, hematemesis, hematochezia, nausea, vomiting Genitourinary: ABSENT: dysuria, hematuria Musculoskeletal: ABSENT: joint swelling Integumentary: ABSENT: rash, wounds Neurological: ABSENT: abnormal gait, abnormal speech, confusion, dizziness, focal weakness, syncope Psychiatric: ABSENT: anxiety, depression, homidical ideation, suicidal ideation Endocrine: ABSENT: cold intolerance, heat intolerance, polydipsia, polyuria Hematologic/Lymphatic: ABSENT: easy bleeding, easy bruising Physical Exam Vital Signs: Temp Pulse Resp BP Pulse Ox 114 H 19 144/86 H 95 02/22/20 18:22 02/22/20 21:00 02/22/20 20:33 02/22/20 21:00 Intake & Output 02/21/20 02/22/20 02/23/20 06:59 06:59 06:59 Intake Total 200 Balance 200 Weight 82.554 kg Additional comments: GENERAL APPEARANCE: Alert and oriented x3, in mild respiratory distress, on 3 L intranasal oxygen HEENT: Normocephalic and atraumatic. No scleral icterus. Moist oral mucosa NECK: Supple. No lymphadenopathy or tenderness. No JVD CHEST: Symmetric. Nontender to palpation. LUNGS: Has diffuse wheezing bilaterally. No crackles HEART: Regular rate and rhythm with normal S1 and S2. No murmurs, gallops, or rubs. ABDOMEN: Multiple surgical scars from cholecystectomy and remote abdominal surgery. Soft, active bowel sounds, no direct or rebound tenderness. No organomegaly detected. No CVA tenderness EXTREMITIES: No cyanosis, clubbing, or edema. MUSCULOSKELETAL: No deformity, atrophy or swelling noted PSYCHIATRIC: Recent and remote memory is intact. Appropriate mood and affect. SKIN: Warm, dry, and well perfused. No lesions or rashes are noted. NEUROLOGIC: No focal sensory or motor deficits are noted. Results Laboratory Results: 02/22/20 21:05 02/22/20 21:05 02/22/20 02/22/20 02/22/20 20:25 21:05 21:05 WBC 10.3 RBC 5.42 Hgb 15.5 Hct 45.0 MCV 83 MCH 28.7 MCHC 34.5 RDW 13.6 Plt Count 216 Seg Neutrophils % 88.4 H Carbonic Acid 1.12 HCO3/H2CO3 Ratio 19:1 ABG pH 7.38 ABG pCO2 37.3 ABG pO2 47.8 L ABG HCO3 21.7 ABG O2 Saturation 83.2 L ABG Base Excess -2.9 FiO2 3L Sodium 138.0 Potassium 4.0 Chloride 106 Carbon Dioxide 23 Anion Gap 9 BUN 13 Creatinine 0.75 Est GFR ( Amer) > 60 Glucose 157 H Calcium 9.4 Total Bilirubin 0.7 AST 28 Alkaline Phosphatase 74 Total Protein 6.9 Albumin 4.3 02/22/20 21:05 Troponin I < 0.012 Impressions: Chest X-Ray 02/22/20 18:47 IMPRESSION: 1. The previously demonstrated left lower lobe pulmonary nodule is not identified on the current study. 2. No acute pulmonary consolidation. Assessment and Plan - Diagnosis (1) Asthma exacerbation Qualifiers: Asthma severity: moderate Asthma persistence: unspecified Qualified Code(s): J45.901 - Unspecified asthma with (acute) exacerbation Is this a current diagnosis for this admission?: Yes Plan: Patient presents with worsening shortness of breath and notes diffuse wheezing on physical exam Currently requiring 3 L intranasal oxygen to saturate > 94% Chest x-ray showed no acute finding Has no leukocytosis, fever or sick contact history Was given Solu-Medrol, breathing treatment and magnesium sulfate at the ER Continue Solu-Medrol 40 mg IV every 8 hourly and will transition him to p.o. in the morning DuoNeb 4 hourly as needed Continue intranasal oxygen Provide incentive spirometry May require low-dose ICS with LABA on discharge (2) Crohn's colitis Qualifiers: Digestive disease complication type: without complication Qualified Code(s): K50.10 - Crohn's disease of large intestine without complications Is this a current diagnosis for this admission?: Yes Plan: Currently stable and not in a flareup (3) Pulmonary nodule Is this a current diagnosis for this admission?: Yes Plan: Current chest x-ray did not show pulmonary nodule on this visit Continue follow-up with primary care as outpatient - Time Time Spent with patient: 35 or more minutes Total Critical Time (Minutes): 35 Medications reviewed and adjusted accordingly: Yes Anticipated Discharge Disposition: Home, Self Care Anticipated Discharge Timeframe: within 48 hours - Inpatient Certification Based on my medical assessment, after consideration of the patient's comorbidities, presenting symptoms, or acuity I expect that the services needed warrant INPATIENT care.: Yes I certify that my determination is in accordance with my understanding of Medicare's requirements for reasonable and necessary INPATIENT services [42 CFR 412.3e].: Yes Medical Necessity: Failure to Improve With Outpatient Therapy, Need Close Monitoring Due to Risk of Patient Decompensation, Need for Nebulizer Therapy and Monitoring of Response Post Hospital Care: D/C or Transfer Summary
[2020-02-22] MEDS ORDERED: KETOROLAC TROMETHAMINE INJ/PF 30 MG/1 ML SDV IV ONE (22:57)
[2020-02-22] MEDS: FAMOTIDINE 20 MG TABLET PO SCH (23:06)
[2020-02-23] MEDS: IPRATROPIUM/ALBUTEROL 0.5-2.5 MG/3 ML AMPUL NEB SCH ×6 (00:08→22:44)
[2020-02-23] MEDS: METHYLPREDNISOLONE INJ 40 MG/1 ML SDV IV SCH ×2 (01:54→10:00)
[2020-02-23] MEDS: FAMOTIDINE 20 MG TABLET PO SCH (10:00)
[2020-02-23] MEDS ORDERED: PREDNISONE 20 MG TABLET PO SCH (10:00)
[2020-02-23] MEDS ORDERED: ENOXAPARIN SODIUM INJ 40 MG/0.4 ML DISP.SYRIN SUBCUT SCH (10:00)
[2020-02-23] MEDS ORDERED: AMLODIPINE BESYLATE 5 MG TABLET PO SCH (11:00)
[2020-02-23] MEDS ORDERED: FLUTICASONE/VILANTEROL 100-25 MCG/DOSE IH SCH (11:30)
[2020-02-23 12:10] VITALS: BP 159/77
--- NOTE | 2020-02-23 15:14 | EKG REPORT ---
SEVERITY:- NORMAL ECG - SINUS RHYTHM : Confirmed by: Melany Gaviria MD 23-Feb-2020 15:13:35
--- NOTE | 2020-02-23 21:08 | PDOC DISCHARGE SUMMARY ---
Impression - Admit/DC Date/PCP Admission Date/Primary Care Provider: 02/22/20 21:13 MATTHEW KIRAN Discharge Date: 02/23/20 - Discharge Diagnosis (1) Asthma exacerbation Is this a current diagnosis for this admission?: Yes (2) Crohn's colitis Is this a current diagnosis for this admission?: Yes (3) Pulmonary nodule Is this a current diagnosis for this admission?: Yes (4) Hypertension Is this a current diagnosis for this admission?: Yes - Additional Information Resuscitation Status: Full Code Discharge Diet: As Tolerated Discharge Activity: Activity As Tolerated Referrals: MATTHEW KIRAN PA-C [Primary Care Provider] - Follow up as needed Prescriptions: Albuterol Sulfate [Albuterol Sulfate Hfa] 2 puff PO Q4HP PRN #1 PRN Reason: Shortness Of Breath Prednisone [Deltasone 20 mg Tablet] 40 mg PO DAILY #8 tablet Ipratropium/Albuterol Sulfate [Duoneb 3 ml Ampul] 3 ml NEB RTQ6HP PRN #30 vial.neb PRN Reason: Amlodipine Besylate [Norvasc 5 mg Tablet] 5 mg PO DAILY #30 tablet Albuterol Sulfate [Proventil 0.5% Neb 2.5 mg/0.5 ml Vial.neb] 2.5 mg NEB RTQ6HP PRN 30 Days #10 vial PRN Reason: Home Medications: Albuterol Sulfate [Albuterol Sulfate Hfa] 2 puff PO Q4HP PRN #1 02/23/20 Albuterol Sulfate [Proventil 0.5% Neb 2.5 mg/0.5 ml Vial.neb] 2.5 mg NEB RTQ6HP PRN 30 Days #10 vial 02/23/20 Amlodipine Besylate [Norvasc 5 mg Tablet] 5 mg PO DAILY #30 tablet 02/23/20 Fluticasone/Vilanterol [Breo 100-25 Mcg Ellipta 14 Dose/Dpi] 1 inh IH DAILY inhaler 02/23/20 Ipratropium/Albuterol Sulfate [Duoneb 3 ml Ampul] 3 ml NEB RTQ6HP PRN #30 vial.neb 02/23/20 Prednisone [Deltasone 20 mg Tablet] 40 mg PO DAILY #8 tablet 02/23/20 History of Present Illiness History of Present Illness: As per admitting HPI "YARI AZUL is a 59 year old male with a history of asthma presents with 3 days duration of worsening of shortness of breath. Patient reports that he usually gets acute exacerbations of his asthma whenever there is an acute weather change. The current episode started 3 days back and it progressively got worse despite using his rescue inhaler. Today while he was at work he became very short of breath and was unable to breathe and associated with this he also reports that he has wheezing. Patient denies any cough, fever, chills, chest pain, palpitation, dizziness, nausea, vomiting or any change in his bowel or urinary habits. He denies any recent sick contact history. His oxygen saturation on arrival to the ED was around 80% on room air he was given breathing treatment, steroid and magnesium sulfate after arrival and currently he is saturating in mid 90s with 3 L intranasal oxygen." Hospital Course Hospital Course: Asthma exacerbation: With mulitple evaluation in the ED over past 3 months for exacerbation. SOB with wheezing on initial presentation. Resolved with Solu-Medrol, duo nebs and mag sulfate. Dc home with Prednisone 40mg x4 days. ICS/LABA inhaler. Rx for albuterol inhaler. Rx for albuterol neb vials. Without leukocytosis, sick contacts or findings on CXR. Initially on 3L O2 NC, with ambulatory sats >95% on room air prior to discharge. Recommend proper face mask with renovation work. Provide incentive spirometry, recommended daily use. Hypertension: BP consistently elevated on current hospitalization and previous. Initiate tx with Amlopdipine 5mg daily. Recommend daily BP logs. Physical Exam Vital Signs: Temp Pulse Resp BP Pulse Ox 98.1 F 100 16 159/77 H 94 02/23/20 08:00 02/23/20 09:19 02/23/20 09:19 02/23/20 12:09 02/23/20 09:19 Intake & Output 02/22/20 02/23/20 02/24/20 06:59 06:59 06:59 Intake Total 200 Balance 200 Weight 82.554 kg General appearance: PRESENT: no acute distress, cooperative, well-developed, well-nourished Head exam: PRESENT: atraumatic, normocephalic Eye exam: PRESENT: EOMI. ABSENT: scleral icterus Mouth exam: PRESENT: moist, tongue midline Neck exam: PRESENT: full ROM. ABSENT: tenderness Respiratory exam: PRESENT: clear to auscultation raeann, symmetrical, unlabored. ABSENT: accessory muscle use, chest wall tenderness, decreased breath sounds, tachypnea, wheezes Cardiovascular exam: PRESENT: RRR, +S1, +S2. ABSENT: diastolic murmur, systolic murmur Pulses: PRESENT: normal radial pulses GI/Abdominal exam: PRESENT: normal bowel sounds, soft. ABSENT: tenderness Extremities exam: PRESENT: full ROM. ABSENT: pedal edema, tenderness Musculoskeletal exam: PRESENT: ambulatory, full ROM. ABSENT: deformity, dislocation Neurological exam: PRESENT: alert, awake, oriented to person, oriented to place, oriented to time, oriented to situation Psychiatric exam: PRESENT: appropriate affect, normal mood Skin exam: PRESENT: dry, intact, warm Results Laboratory Results: WBC 10.3 10^3/uL (4.0-10.5) 02/22/20 21:05 RBC 5.42 10^6/uL (4.35-5.55) 02/22/20 21:05 Hgb 15.5 g/dL (13.5-17.0) 02/22/20 21:05 Hct 45.0 % (37.9-51.0) 02/22/20 21:05 MCV 83 fl (80-97) 02/22/20 21:05 MCH 28.7 pg (27.0-33.4) 02/22/20 21:05 MCHC 34.5 g/dL (32.0-36.0) 02/22/20 21:05 RDW 13.6 % (11.5-14.0) 02/22/20 21:05 Plt Count 216 10^3/uL (150-450) 02/22/20 21:05 Lymph % (Auto) 7.3 % (13-45) L 02/22/20 21:05 [place] % (Auto) 1.7 % (3-13) L 02/22/20 21:05 Eos % (Auto) 2.1 % (0-6) 02/22/20 21:05 Baso % (Auto) 0.5 % (0-2) 02/22/20 21:05 Absolute Neuts (auto) 9.1 10^3/uL (1.7-8.2) H 02/22/20 21:05 Absolute Lymphs (auto) 0.8 10^3/uL (0.5-4.7) 02/22/20 21:05 Absolute Monos (auto) 0.2 10^3/uL (0.1-1.4) 02/22/20 21:05 Absolute Eos (auto) 0.2 10^3/uL (0.0-0.6) 02/22/20 21:05 Absolute Basos (auto) 0.1 10^3/uL (0.0-0.2) 02/22/20 21:05 Seg Neutrophils % 88.4 % (42-78) H 02/22/20 21:05 Carbonic Acid 1.12 mmol/L (1.05-1.35) 02/22/20 20:25 HCO3/H2CO3 Ratio 19:1 02/22/20 20:25 ABG pH 7.38 (7.35-7.45) 02/22/20 20:25 ABG pCO2 37.3 mmHg (35-45) 02/22/20 20:25 ABG pO2 47.8 mmHg (80-100) L 02/22/20 20:25 ABG HCO3 21.7 mmol/L (20-24) 02/22/20 20:25 ABG Total CO2 22.8 mmol/L (23-27) L 02/22/20 20:25 ABG O2 Saturation 83.2 % (94-98) L 02/22/20 20:25 ABG Base Excess -2.9 mmol/L 02/22/20 20:25 FiO2 3L 02/22/20 20:25 Sodium 138.0 mmol/L (137-145) 02/22/20 21:05 Potassium 4.0 mmol/L (3.6-5.0) 02/22/20 21:05 Chloride 106 mmol/L (98-107) 02/22/20 21:05 Carbon Dioxide 23 mmol/L (22-30) 02/22/20 21:05 Anion Gap 9 (5-19) 02/22/20 21:05 BUN 13 mg/dL (7-20) 02/22/20 21:05 Creatinine 0.75 mg/dL (0.52-1.25) 02/22/20 21:05 Est GFR ( Amer) > 60 (>60) 02/22/20 21:05 Est GFR (MDRD) Non-Af > 60 (>60) 02/22/20 21:05 Glucose 157 mg/dL (75-110) H 02/22/20 21:05 Calcium 9.4 mg/dL (8.4-10.2) 02/22/20 21:05 Total Bilirubin 0.7 mg/dL (0.2-1.3) 02/22/20 21:05 Direct Bilirubin 0.1 mg/dL (0.0-0.4) 02/22/20 21:05 Neonat Total Bilirubin Not Reportable 02/22/20 21:05 Neonat Direct Bilirubin Not Reportable 02/22/20 21:05 Neonat Indirect Bili Not Reportable 02/22/20 21:05 AST 28 U/L (17-59) 02/22/20 21:05 ALT 36 U/L (<50) 02/22/20 21:05 Alkaline Phosphatase 74 U/L (38-126) 02/22/20 21:05 Troponin I < 0.012 ng/mL 02/22/20 21:05 Total Protein 6.9 g/dL (6.3-8.2) 02/22/20 21:05 Albumin 4.3 g/dL (3.5-5.0) 02/22/20 21:05 02/22/20 21:05 Troponin I < 0.012 Impressions: Chest X-Ray 02/22/20 18:47 IMPRESSION: 1. The previously demonstrated left lower lobe pulmonary nodule is not identified on the current study. 2. No acute pulmonary consolidation. Plan Plan of Treatment: 1. For asthma exacerbation I have provided you with a prescription for 40mg Prednsione to be taken daily for 4 days. - We gave you an inhaler called Breo. Please take one puff of this inhaler daily. This will help decrease your number of asthma exacerbations. - I have given you a prescription for more Albuterol neb vials and a new Albuterol inhaler as you have recently ran out. - You experience an increase in your symptoms during change in seasons. Recommend taking an allergy medication daily, this will help prevent recurrence of exacerbation. - I recommend wearing appropriate masks when working on gabriella and dry- reynolds. Irritants from these can increase your risk of exacerbation. 2. Your blood pressure was elevated during hospitalization and previous times you've been evaluated. We have started you on Amlodipine 5mg take once daily. - Monitor your blood pressure daily - Recommend keeping a journal of blood pressure readings that you can provide your primary care provider with to ensure proper control moving forward. Goals: Decrease events of asthma exacerbations. Time Spent: Greater than 30 Minutes Stroke Is this a Stroke Patient?: No Acute Heart Failure Is this a Heart Failure Patient?: No
[2020-02-24] MEDS: IPRATROPIUM/ALBUTEROL 0.5-2.5 MG/3 ML AMPUL NEB SCH ×2 (01:27→05:04)
== END 2020-02-23 13:49 | disposition home or self-care (01) ==
LOC: ER 18:20 → EH 21:13 → INTOOBSV 21:13 → EH 02-23 01:20
PROVIDERS: ADMIT Student in an Organized Health Care Education/Training Program; ATTEND Physician Assistant
DX: J45.901 Unspecified asthma with (acute) exacerbation (principal); K50.10 Crohn's disease of large intestine without complications; I10 Essential (primary) hypertension; Z87.09 Personal history of other diseases of the respiratory system; Z79.899 Other long term (current) drug therapy; Z90.49 Acquired absence of other specified parts of digestive tract; Z87.891 Personal history of nicotine dependence
CPT/HCPCS: 93005; 94640 ×3; 99285; 96375; 96365; 36415; 82803; 85025; 80053; 84484; 71045; 93010; G0378 ×2; J2920; J2930; J1885; J1650; J3475; J7512; J3490

== ENCOUNTER 2020-04-17 16:13 | Emergency (ER) | payer SELFPAY ==
[2020-04-17] MEDS ORDERED: IPRATROPIUM/ALBUTEROL 0.5-2.5 MG/3 ML AMPUL NEB ONE ×3 (16:52→17:35)
[2020-04-17] MEDS ORDERED: PREDNISONE 20 MG TABLET PO ONE (16:53)
--- NOTE | 2020-04-17 16:57 | ER Document Report ---
ED Medical Screen (RME) - General Stated Complaint: POSSIBLE ASTHMA ATTACK Time Seen by Provider: 04/17/20 16:49 Primary Care Provider: MATTHEW KIRAN PA-C [Primary Care Provider] - Follow up as needed TRAVEL OUTSIDE OF THE [place] IN LAST 30 DAYS: No - HPI Notes: Patient is a 60 y/o male with a hx of asthma who presents with an asthma exacerbation. Patient reports shortness of breath, wheezing and chest tightness for the past two days. He states he has used 11 albuterol breathing treatments and been using his inhaler a lot more with little relief. He denies fever, nasal congestions, cough and vomiting. He states his symptoms are typical of his usual asthma exacerbations. - Related Data Allergies/Adverse Reactions: Penicillins Allergy (Severe, Verified 10/09/19 11:22) Seizures Past Medical History - Past Medical History Cardiac Medical History: Reports: Hx Hypertension Denies: Hx Coronary Artery Disease, Hx Heart Attack Pulmonary Medical History: Reports: Hx Asthma Denies: Hx Bronchitis, Hx COPD, Hx Pneumonia Neurological Medical History: Denies: Hx Cerebrovascular Accident, Hx Seizures Endocrine Medical History: Denies: Hx Diabetes Mellitus Type 1, Hx Diabetes Mellitus Type 2 Renal/ Medical History: Denies: Hx Peritoneal Dialysis GI Medical History: Reports: Hx Crohn's Disease Musculoskeltal Medical History: Denies Hx Arthritis Psychiatric Medical History: Denies: Hx Depression Past Surgical History: Reports: Hx Appendectomy, Hx Bowel Surgery, Hx Cholecystectomy - Immunizations Immunizations up to date: Yes Hx Diphtheria, Pertussis, Tetanus Vaccination: No Physical Exam - Vital signs Vitals: Temp Pulse Resp BP Pulse Ox 97.6 F 94 26 H 161/74 H 96 04/17/20 16:18 04/17/20 16:18 04/17/20 16:18 04/17/20 16:18 04/17/20 16:18 - Respiratory Respiratory status: No respiratory distress Breath sounds: Wheezing - expiratory throughout Course - Re-evaluation Re-evalutation: I have greeted and performed a rapid initial assessment of this patient. A comprehensive ED assessment and evaluation of the patient, analysis of test results and completion of medical decision making process will be conducted by an additional ED providers. - Vital Signs Vital signs: Temp Pulse Resp BP Pulse Ox 97.6 F 94 26 H 161/74 H 96 04/17/20 16:18 04/17/20 16:18 04/17/20 16:18 04/17/20 16:18 04/17/20 16:18 Doctor's Discharge - Discharge Referrals: MATTHEW KIRAN PA-C [Primary Care Provider] - Follow up as needed
[2020-04-17] MEDS ORDERED: ALBUTEROL SULFATE 0.083% NEB 2.5 MG/3 ML AMPUL NEB ONE (17:50)
--- NOTE | 2020-04-17 19:06 | ER Document Report ---
ED Respiratory Problem - General Chief Complaint: Asthma Exacerbation Stated Complaint: POSSIBLE ASTHMA ATTACK Time Seen by Provider: 04/17/20 16:49 Primary Care Provider: MATTHEW KIRAN PA-C [ALLIED HEALTH PROFESSIONAL] - Follow up as needed Notes: HPI: 60-year-old male with past medical history of smoking with diagnosed possible asthma/COPD, who presents today with the onset around 3 days ago of some increased wheezing and cough. He denies any fever, headache, chest pain, abdominal pain, calf pain or leg swelling. He believes this started when he was around a young woman with "a lot of perfume". Patient is not on oxygen at home. He does have a nebulizer at home. ROS: See HPI All other review of systems reviewed and otherwise negative Reviewed vital signs and nursing note as charted by RN. PHYSICAL EXAM: CONSTITUTIONAL: Alert and oriented and responds appropriately to questions. Well-appearing; well-nourished HEAD: Normocephalic; atraumatic EYES: PERRL; Conjunctivae clear, sclerae non-icteric ENT: Normal nose; no rhinorrhea; moist mucous membranes; pharynx without lesions noted NECK: Supple without meningismus; non-tender; no cervical lymphadenopathy, no masses CARD: Regular rate and rhythm; no murmurs; symmetric distal pulses RESP: Minimal tachypnea with retractions with bilateral wheezing without rales or rhonchi ABD/GI: Normal bowel sounds; non-distended; soft, non-tender BACK: The back appears normal and is non-tender to palpation EXT: Normal ROM in all joints; non-tender to palpation; no edema SKIN: No acute lesions noted NEURO: CN 2-12 intact; 5/5 bilateral upper and lower extremity strength with sensation intact to light touch PSYCH: The patient's mood and manner are appropriate. Grooming and personal hygiene are appropriate. TRAVEL OUTSIDE OF THE [place] IN LAST 30 DAYS: No - Related Data Allergies/Adverse Reactions: Penicillins Allergy (Severe, Verified 04/17/20 17:18) Seizures Home Medications: albuterol nebs and inhaler Past Medical History - Social History Smoking Status: Former Smoker Chew tobacco use (# tins/day): No Frequency of alcohol use: None Drug Abuse: None Family History: Reviewed & Not Pertinent Patient has homicidal ideation: No - Past Medical History Cardiac Medical History: Reports: Hx Hypertension Denies: Hx Coronary Artery Disease, Hx Heart Attack Pulmonary Medical History: Reports: Hx Asthma Denies: Hx Bronchitis, Hx COPD, Hx Pneumonia Neurological Medical History: Denies: Hx Cerebrovascular Accident, Hx Seizures Endocrine Medical History: Denies: Hx Diabetes Mellitus Type 1, Hx Diabetes Mellitus Type 2 Renal/ Medical History: Denies: Hx Peritoneal Dialysis GI Medical History: Reports: Hx Crohn's Disease Musculoskeletal Medical History: Denies Hx Arthritis Psychiatric Medical History: Denies: Hx Depression Past Surgical History: Reports: Hx Appendectomy, Hx Bowel Surgery, Hx Cholecyst ectomy - Immunizations Immunizations up to date: Yes Hx Diphtheria, Pertussis, Tetanus Vaccination: No Physical Exam - Vital signs Vitals: Temp Pulse Resp BP Pulse Ox 97.6 F 94 26 H 161/74 H 96 04/17/20 16:18 04/17/20 16:18 04/17/20 16:18 04/17/20 16:18 04/17/20 16:18 Course - Re-evaluation Re-evalutation: Given the above history and physical, nebulizers and labs as well as imaging was ordered in triage. They did add a magnesium given the possibility of asthma. 04/17/20 19:06 Patient's breathing and wheezing is much improved. Vital signs are excellent. Satting 98% on room air. X-ray is still pending. Labs otherwise unremarkable. 04/17/20 20:33 Patient still looks excellent. Patient's wheezing is greatly improved. Patient feels much better. Labs as recorded. Given the possibility of COPD exacerbation I have provided a dose of doxycycline. Will be discharged on a course of steroids, doxycycline, refill of his albuterol nebulizer solution, and a new albuterol inhaler. - Vital Signs Vital signs: Temp Pulse Resp BP Pulse Ox 97.6 F 94 20 161/74 H 97 04/17/20 16:18 04/17/20 17:24 04/17/20 17:24 04/17/20 16:18 04/17/20 17:24 - Laboratory Results Result Diagrams: 04/17/20 19:30 04/17/20 19:30 Laboratory Results Interpreted: 04/17/20 04/17/20 19:30 19:30 RBC 5.65 H RDW 14.5 H Sodium 136.5 L Glucose 166 H Critical Laboratory Results Reviewed: No Critical Results - Radiology Results Critical Radiology Results Reviewed: No Critical Results Discharge - Discharge Clinical Impression: COPD exacerbation Condition: Fair Disposition: HOME, SELF-CARE Additional Instructions: Please take 2 puffs of the albuterol inhaler every 4 hours for the next 48 hours and every 6 hours after that. Please complete the course of steroids and doxycycline as we have prescribed. Return immediately for any worsening shortness of breath, cough, wheezing, chest pain, or any other acute problems. Please make sure that you follow-up with your primary care physician for further assessment and reevaluation as discussed. Prescriptions: Prednisone [Deltasone 20 mg Tablet] 3 tab PO DAILY 4 Days #12 tablet Doxycycline Hyclate 100 mg PO BID #20 tablet. Albuterol Sulfate [Proventil 0.5% Neb 2.5 mg/0.5 ml Vial.neb] 5 mg NEB Q6H 8 Days #30 vial.neb Referrals: MATTHEW KIRAN PA-C [ALLIED HEALTH PROFESSIONAL] - Follow up as needed
--- NOTE | 2020-04-17 19:29 | RADIOLOGY REPORT (SQ) ---
EXAM DESCRIPTION: CHEST SINGLE VIEW IMAGES COMPLETED DATE/TIME: 04/17/2020 6:07 pm REASON FOR STUDY: 10; sob COMPARISON: 02/22/2020 EXAM PARAMETERS: NUMBER OF VIEWS: One view. TECHNIQUE: Single frontal radiographic view of the chest acquired. RADIATION DOSE: NA LIMITATIONS: None. FINDINGS: LUNGS AND PLEURA: Hyperinflated lungs. No opacities, masses or pneumothorax. No pleural effusion. MEDIASTINUM AND HILAR STRUCTURES: No masses. Contour normal. HEART AND VASCULAR STRUCTURES: Heart normal in size. Normal vasculature. BONES: No acute findings. HARDWARE: None in the chest. OTHER: No other significant finding. IMPRESSION: Hyperinflated lungs which can be seen with obstructive lung disease. No acute cardiopul monary disease. TECHNICAL DOCUMENTATION: JOB ID: [id number] [employer]- All Rights Reserved Reading location - IP/workstation name: [email or web address]
[2020-04-17] MEDS: MAGNESIUM SULFATE/D5W 1 GM/100 ML RTUPB IV SCH ×2 (19:45→20:06)
[2020-04-17 19:48] LABS: ABSOLUTE BASOPHILS # (AUTO) 0.1 10^3/uL (0.0-0.2); ABSOLUTE EOSINOPHILS # (AUTO) 0.3 10^3/uL (0.0-0.6); ABSOLUTE LYMPHOCYTES (AUTO) 1.2 10^3/uL (0.5-4.7); ABSOLUTE MONOCYTES (AUTO) 0.3 10^3/uL (0.1-1.4); ABSOLUTE NEUT (AUTO) 6.6 10^3/uL (1.7-8.2); BASOPHILS % (AUTO) 0.6 % (0-2); EOSINOPHILS % (AUTO) 3.7 % (0-6); HEMATOCRIT 46.1 % (37.9-51.0); HEMOGLOBIN 15.7 g/dL (13.5-17.0); LYMPHOCYTES % (AUTO) 14.4 % (13-45); MEAN CORPUSCULAR HEMOGLOBIN 27.9 pg (27.0-33.4); MEAN CORPUSCULAR HGB CONC 34.1 g/dL (32.0-36.0); MEAN CORPUSCULAR VOLUME 82 fl (80-97); MONOCYTES % (AUTO) 3.5 % (3-13); PLATELET COUNT 199 10^3/uL (150-450); RED BLOOD COUNT 5.65 10^6/uL (4.35-5.55); RED CELL DISTRIBUTION WIDTH 14.5 % (11.5-14.0); SEGMENTED NEUTROPHILS % (AUTO) 77.8 % (42-78); TOTAL CELLS COUNTED % (AUTO) 100 %; WHITE BLOOD COUNT 8.5 10^3/uL (4.0-10.5)
[2020-04-17 20:01] LABS: ANION GAP 7 (5-19); BLOOD UREA NITROGEN 14 mg/dL (7-20); CARBON DIOXIDE 26 mmol/L (22-30); CHLORIDE 104 mmol/L (98-107); GLUCOSE 166 mg/dL (75-110); POTASSIUM 4.1 mmol/L (3.6-5.0)
[2020-04-17] MEDS ORDERED: DOXYCYCLINE HYCLATE 100 MG TABLET PO ONE (20:32)
[2020-04-17] MEDS ORDERED: ALBUTEROL SULFATE HFA (90 MCG/PUFF) 8 GM MDI IH ONE (20:33)
[2020-04-17 21:18] VITALS: BP 166/90
== END 2020-04-17 21:18 | disposition home or self-care (01) ==
LOC: ER 16:13
DX: J44.1 Chronic obstructive pulmonary disease with (acute) exacerbation (principal); R05 Cough; I10 Essential (primary) hypertension; Z79.899 Other long term (current) drug therapy; Z87.891 Personal history of nicotine dependence; Z88.0 Allergy status to penicillin
CPT/HCPCS: 94640 ×2; 99285; 96365; 36415; 83735; 85025; 80048; 71045; J3475; J7512; J7613; J3490